=== PATIENT | male | born 1950 | race Caucasian/White ===

== ENCOUNTER 2024-11-30 12:25 | Outpatient (AMB) | payer MEDICARE, OTHER, SELFPAY ==
--- NOTE | 2024-11-30 12:44 | MHC.OFFVIS ---
Vital Signs 11/30/24 12:51 Height 5 ft 6 in Weight 163 lb BMI 26.3 BP 138/84 Blood Pressure Location Rt brachial Position Sitting Intake Visit Reasons: ENP: Drooling Intake Note: Patient presents for drooling Allergies No Known Allergies Allergy (Verified 11/30/24 12:52) Medication List - Last Reconciled 11/30/24 by Anna Loving MD amlodipine 10 mg PO DAILY atorvastatin 80 mg PO DAILY lisinopril 40 mg PO DAILY HPI Comments Details: 74y/oRight handed male comes for evaluation of slowness in movements, temors and excessive drooling. The tremors are mild at rest and are in both hand sL>R. The drooling started 6-9 mths ago and he is embarrased when he has dinners with his family and friends. He has night time drooling and during daytime when he bends down he drools. He does not realize that he is drooling sometimes. No change in swallowing. His speech is softer. He feels he is not as coordinated as before and has difficulty with writing using utensils, dressing. Gait- slower and mild off balance.He has some near falls. he has difficulty turning in bed. He has trouble recalling , word finding difficulties. sleep-he has nocturia, he used to have loud dreams, kicking and screaming during sleep, now better he feels he is more anxious now. He has constipation- he manages with diet. No hallucinations. He also reports right occipital shooting pain - electric shock like sensation -used to be daily now it is less frequent [facility] Medical History (Updated 11/30/24 @ 13:19 by Anna Loving MD) Occipital neuralgia of right side Bradykinesia Drooling Rotator cuff tear Insomnia Anxiety HTN (hypertension) Hyperlipidemia Borderline diabetes NICA (obstructive sleep apnea) Erectile dysfunction Periodic limb movement Orthostatic hypotension SOB (shortness of breath) Dysphagia Electrical shock sensation Surgical History H/O shoulder surgery Family History Mother CAD (coronary artery disease) Acquired cataract Father No problems noted. Social History Alcohol intake: current Patient Tobacco Use Status: Never used Tobacco Physical Exam Vital Signs: Last Vital Signs BP 138/84 11/30/24 12:51 BMI result Body Mass Index 26.3 Const Orientation/consciousness: patient oriented x3 Eyes Pupils: Equal, round and reactive pupils present Neuro Other: Stooped, slow , small steps , mild decreased arm swings ade Decreased blink and facial expression Hypophonia Ade UE cogwheel rigidity Neck- restricted range of portion antecollis General: patient oriented x3 and moves all extremities Cranial nerves: Yes Facial sensation intact/muscles of mastication intact, Yes Equal, round and reactive pupils present, Yes Bilaterally intact EOM present, Yes Nystagmus not present, Yes Normal facial strength present, Yes Midline tongue present and Yes Ability to bilaterally elevate shoulders present Cognition (Neuro): normal cognition Motor exam (neuro): 5/5 motor strength present throughout Deep tendon reflexes (DTR's): Right triceps reflex intensity grade: 2+, Left triceps reflex intensity grade: 2+, Rt Biceps (C5, C6): 2+, Left biceps reflex intensity grade: 2+, Right brachioradialis reflex intensity grade: 2+, Left brachioradialis reflex intensity grade: 2+, Right patellar reflex intensity grade: 2+ and Left patellar reflex intensity grade: 2+ Coordination: [id number] test normal Psych Appearance: grossly normal Mental Status: mental status grossly normal Assessment & Plan Assessment & Plan (1) Drooling: Code(s): K11.7 - Disturbances of salivary secretion Category: Medical (2) Bradykinesia: Comment: with cogwheel rigidity , Kyphosis etc Code(s): R25.8 - Other abnormal involuntary movements Category: Medical (3) Occipital neuralgia of right side: Code(s): M54.81 - Occipital neuralgia Category: Medical Plan He has early signs of Parkinsonism i will evaluate him with MRI brain ( consider MOON scan ) Trial him on carbidopa.levodopa 25/100 1 tab bid PT- for gait training Neck X ray- Myofascial release for neck tightness will consider gabapentin if his occipital neurlagia worsens, Orders: Orders PT Evaluation and Treatment Today G20.C - Parkinsonism, unspecified, M54.2 - Cervicalgia, R25.8 - Other abnormal involuntary movements XR cervical spine 3V Today M54.2 - Cervicalgia MR head/brain wo con Today R25.8 - Other abnormal involuntary movements Medications: New carbidopa-levodopa 25-100 mg (Sinemet) 1 tab PO BID 60 tabs 4RF Coding Level of Care Code New Pt Level 4 (13470) Complex EM visit Add On G2211 Diagnoses Drooling K11.7 Bradykinesia R25.8 Occipital neuralgia of right side M54.81
[2024-11-30 12:51] VITALS: BP 138/84; BMI 26.3
--- OUTSIDE RECORDS SUMMARY | 2024-11-30 14:40 | XMS_ITS | Encounter Summary ---
Author Organization [facility] Address [address] [place] [address] Care Team Providers Care Overlock Hemmer Name Role Phone Monika Hernandez MD Primary Care Prov ider Encounter Details Date Type Department Care Team (Late st Contact Info) Description 11/23/2024 Plan of Care Documentation [facility] Speech Therapy [address] [facility] [address] [place] [address] Social History Tobacco Use Types Packs/Day Years Used Date Smoking Tobacco: Never Smokeless Tobacco: Never Alcohol Use Standard Drinks/Week Comments Yes 66 (1 standard drink = 0.6 oz pu re alcohol) Housing Instability Answer Date Recorde d Are you worried that in the next 2 months you may not have stable housing? No 10/18/2024 Food Access & Nutrition Answer Date Rec orded Do you have access to a vari ety of food including fruits and vegetables? Yes 10/18/2024 Access to Healthcare Answer Date Record ed Within the last 3 months, ho w many times did you visit the emergency department for your medical care? 0 10/18/2024 Health Literacy Answer Date Recorded How often do you need to hav e someone help you when you read instructions, pamphlets, or other written material from your doctor or pharmacy? Never 10/18/2024 Caregiver: How often do you need to have someone help you when you read instructions, pamphlets, or other written material from your doctor or pharmacy? Not on file 10/18/2024 Financial Risk Answer Date Recorded How hard is it for you to pa y for the very basics like food, housing, medical care, and air conditioning / heating? Not very hard 10/18/2024 Transportation Answer Date Recorded Has the lack of transportati on kept you from meetings, work, or from getting things needed for daily living? No Has the lack of transportati on kept you from medical appointments or from getting medications? No 10/18/2024 Social Isolation Answer Date Recorded How often do you feel lonely or isolated from th ose around you? Never 10/18/2024 Food Risk Answer Date Recorded Within the past 12 months we worried whether our food would run out before we got money to buy more. Not on file 10/18/2024 Within the past 12 months th e food we bought just didn't last and we didn't have money to get more. Never true 10/18/2024 Dependent Care Answer Date Recorded Do you need help finding or paying for care for your loved ones. For example, child care aide or elderly care for an older adult? No 10/18/2024 Education Answer Date Recorded Do you think completing more education or training, like finishing a GED, going to college, or learning a trade, would be helpful for you? No 10/18/2024 Employment and Income Answer Date Recor ded During the last four weeks, have you been actively looking for work? No 10/18/2024 Living Situation Answer Date Recorded What is your living situation? 1 12/19/2023 Interpersonal Safety Answer Date Record ed Physical Abuse 10/03/2024 Verbal Abuse 10/03/2024 Sex and Gender Information Value Date Recorded Sex Assigned at Not on file Gender Identity Not on file Sexual Orientation Not on file Job Start Date Occupation Industry Not on file Not on file Not on file documented as of this encounter Plan of Treatment Upcoming Encounters Date Type Department Care Team (Late st Contact Info) Description 01/19/2025 9:30 AM EDT Office Visit Adult Medicine [address] [phone] Monika Hernandez MD [address] [place] [id number] 01/24/2025 8:15 AM EDT Office Visit Orthopedic Surgery [address] [address] Markell Freeman [place] [address] [facility] [address] [place] [address] 04/21/2025 8:30 AM EDT Office Visit Adult Medicine [address] [address] Monika Hernandez MD [address] [place] [id number] documented as of this encounter Visit Diagnoses Not on filedocumented in this encounter Additional Health Concerns Assessment Noted Time PHQ-9 Depression Total Score: 0 10/18/20 24 8:11 AM EST documented as of this encounter Care Teams Overlock Hemmer Relationship Specialty Start Date End Date Monika Hernandez MD [address] [place] [id number] PCP - General Internal Medicine 06/02/22 documented as of this encounter
--- OUTSIDE RECORDS SUMMARY | 2024-11-30 14:40 | XMS_ITS | Clinical Summary ---
Author Organization 175 [facility] Address [address] [place] [address] Phone Care Team Providers Care Assistant Department Manager Name Role Phone Monika Hernandez MD Primary Care Prov ider Allergies Active Allergy Reactions Criticality Noted Date Comments Poison Chandni Extract Itching Medium 11/16/2023 Poison chandni plant Medications Medication Sig Dispensed Refills Start Date End Date Status alfuzosin (UROXATRAL) 10 mg 24 hr tablet 1 TABLET BEFORE BED 03/31/2024 Act akosua ciclopirox (LOPROX) 0.77 % gel Apply topically daily 05/02/2024 Active ciclopirox (LOPROX) 0.77 % cream Apply 1 Applicator topically 2 times daily for 360 days. 05/02/2024 04/27/2025 Active clotrimazole (LOTRIMIN) 1 % cream Apply to skin and toenails daily for 12 weeks 05/02/2024 Active tamsulosin (FLOMAX) 0.4 mg 24 hr capsule Take 1 Capsule by mouth daily. Take 30 mins after same meal every day. 12/22/2023 Active tolnaftate (TINACTIN) 1 % external solution Apply topically to toenails 05/02/2024 Active polyethylene glycol (Golytely) 236-22.74-6.74 -5.86 gram solution Take 4L by mouth once for one dose. May substitue any PEG. Starting at 6PM the night before your procedure drink 1 8oz glasses at your own pace until you complete half of the gallon. Finish 2nd half of the gallon 5 hours before your procedure. 4000 mL 09/19/2024 Active Additional Information Patient not taking.Reported on 10/18/2024 bisacodyL (DULCOLAX) 5 mg EC tablet Take 2 tablets by mouth right before beginning bowel prep. See instructions provided by the office 2 tablet 09/19/2024 Active Additional Information Patient not taking.Reported on 10/18/2024 lisinopril (PRINIVIL,ZESTRIL ) 40 mg tablet TAKE 1 TABLET BY MOUTH EVERY DAY 90 tablet 1 10/07/2024 Active amLODIPine (NORVASC) 10 mg tablet Take 1 tablet (10 mg total) by mouth 1 (one) time each day. 90 each 3 10/18/2024 10/18/2025 Active atorvastatin (LIPITOR) 80 mg tablet Take 1 tablet (80 mg total) by mouth 1 (one) time each day. 90 each 3 10/18/2024 10/18/2025 Active ciclopirox (LOPROX) 0.77 % cream Apply topically 2 (two) times a day. Gently massage into affected areas and surrounding skin 30 g 2 11/24/2024 02/22/2025 Active clotrimazole (LOTRIMIN) 1 % external solution Apply topically 2 (two) times a day. Apply to nails and skin 30 mL 2 09/20/2024 11/15/2024 Active Problems Problem Noted Date Diagnosed Date Anxiety 08/02/2024 Drooling 08/02/2024 Assessment & Plan (10/18/2024 8:40 AM EST): Complaining of persistent drooling for many years, already evaluated by neurology and ENT, no abnormalities were found. Will place a referral for speech and swallow. Orders: Ambulatory referral to Speech Therapy; Future Globus sensation 08/02/2024 Esophagitis 04/22/2024 White matter abnormality on MRI of brain 024 Right bundle branch block 01/29/2023 Dysphagia 01/20/2022 Overview (08/02/2024): Barium swallow 02/03/2022 normal swallowing function. Dedicated speech pathologist report reviewed. Mild oropharyngeal dysphagia. Advised that patient may benefit from GI and/or ENT consult due to reports of intermittent reflux and sensation of throat fullness. GI consult pending. If unremarkable would proceed with ENT eval. EGD with esophagitis. Advised PPI indefinitely. Electrical shock sensation 01/20/2022 Overview (08/02/2024): Neuro work-up pending Orthostatic hypotension 05/02/2021 SOB (shortness of breath) 05/02/2021 Rotator cuff tear, right 08/11/2018 Overview (08/02/2024): Sees Dr. Varela Periodic limb movement sleep disorder 03/16/2018 Erectile dysfunction 02/08/2018 Obstructive sleep apnea 01/14/2018 Overview (08/02/2024): [facility] Home Polysomnogram: Date 01/12/2018; AHI 11, Unclassified apneas 0; Obstructive apneas 9; Central apneas 0; Mixed apneas 0; hypopneas 76; average oxygen saturation 91% (lowest 80% without saturations <88% for 5% or more of study) - Obstructive Sleep Apnea - mild; mostly hypopneas; no sleep related hypoventilation by 2018 home polysomnogram. Borderline diabetes 06/29/2017 Dyslipidemia 09/11/2011 Overview (08/02/2024): IMO update Last Assessment & Plan: Patient's lipid profile is well controlled. Continue statin at current dose. Essential hypertension, benign 11/14/2005 Overview (08/02/2024): Last Assessment & Plan: The patient's blood pressure is well controlled on his current regimen of JOSEPH inhibitor and calcium channel carina. We will continue the same. His mild lower extremity edema is likely a side effect of his amlodipine. His neck discomfort is most likely musculoskeletal in etiology, though he plans to see his PCP next week. He does have tight muscles in his back and his neck. I recommended heating pad and stretching until he gets into see her. As always, we discussed increasing his exercise/focus movement in any way possible. He understands and agrees. I suggested even marching in place while he is watching TV if he does not feel as though he is motivated to get on his treadmill currently. He thinks that he can manage this. Assessment & Plan (10/18/2024 8:40 AM EST): Fairly well controlled 144/72. Compliant with his medications, currently on lisinopril 40, amlodipine 10. There is no chest pain, headaches, dizziness, shortness of breath. Will continue same medication. He is encouraged to follow a low-salt diet and exercise regularly. Orders: Comprehensive metabolic panel; Future Lipid panel with reflex to direct LDL; Future Hyperlipidemia 11/14/2005 Assessment & Plan (10/18/2024 8:30 AM EST): Currently on atorvastatin 80 mg a day. Last LDL was 79. We will continue same medication. Low-fat diet and regular exercise were discussed with the patient. Orders: Comprehensive metabolic panel; Future Lipid panel with reflex to direct LDL; Future Insomnia 11/14/2005 Encounters Date Type Department Care Team Description 11/24/2024 8:15 AM EST Office Visit Orthopedic Surgery [facility] [address] [facility] [address] [place] [phone] Markell Freeman, DPM Dermatophytosis of nail (Primary Dx); Ingrowing nail 11/23/2024 2:15 PM EST Evaluation [facility] Speech Therapy [address] [phone] Merle Sow, SWITCH[employer]ARD WIRE WORKER HELPER Dysphagia, oropharyngeal (Primary Dx); Drooling 11/23/2024 Plan of Care Documentation [facility] Speech Therapy [address] [phone] 10/18/2024 8:00 AM EST Office Visit Adult Medicine [address] [phone] Monika Hernandez MD Encounter for annual general medical examination with abnormal findings in adult (Primary Dx); Essential hypertension, benign; Mixed hyperlipidemia; Drooling; Advance care planning 10/03/2024 3:37 PM EST Anesthesia Event [facility] Endoscopy [address] [place] [phone] Juan Alberto Serrano MD 10/03/2024 2:23 PM EST - 10/03/2024 11:59 PM EST Hospital Encounter [facility] Endoscopy [address] [place] [address] Gwen Barnes MD Piela, Juan Alberto Sanches MD Personal history of colon polyps, unspecified; Esophagitis; Dysphagia Discharge Disposition: Home or Self Care 09/20/2024 8:15 AM EST Office Visit Orthopedic Surgery [facility] [address] [facility] [address] [place] [phone] Markell Freeman, DPM Ingrowing nail (Primary Dx); Dermatophytosis of nail 09/13/2024 Telephone Gastroenterology [facility] 175 [facility] 175 [facility] [address] [place] [address] Romero Lizarraga PA 09/06/2024 2:20 PM EST [facility] 175 [facility] [address] [place] [address] Romero Lizarraga PA Dysphagia, unspecified type (Primary Dx); Globus sensation; Heartburn from Last 3 Months Immunizations Name Administration Dates Next Due Influenza Quadravalent, MDCK , 0.5ml, preservative free (Flucelvax) 6mo and older 08/31/2018 Influenza trivalent, 0.5mL ( Fluzone High-dose) 65yo and older 08/19/2023,08/14/2022,08/15/2021,09/03,09/17/2016,07/26/2013,10/05/2012 ,09/11/2011 Influenza trivalent, with pr eservative (Fluzone; Afluria) 6mo and older 08/17/2019 Influenza, Unspecified 08/14/2022 Pfizer (ages 12 & older) Biv alent, COVID-19 08/18/2022 Pfizer SARS-CoV-2 COVID-19, mRNA, LNP-S, preservative free 08/18/2022,08/23/2021 Pneumococcal conjugate 13 va lent (Prevnar 13, PCV13) 2mo and older 11/15/2015 Pneumococcal polysaccharide 23 valent (Pneumovax 23) 2yo and older 06/21/2019,07/26/2013 Td Tetanus diptheria (Tdvax) 7yo and older 06/21/2019 Tdap Tetanus diptheria acell ular pertussis (Boostrix; Adacel) 7yo and older 02/22/2008 Surgical History Surgery Date Site/Laterality Comments COLONOSCOPY 12/2002 PROCEDURE: ME COLONOSCOPY STOMA DX INCLUDING COLLJ SPEC SPX COLONOSCOPY W/ POLYPECTOMY 01/24/13 PROCEDURE: ME COLSC FLX W/RMVL OF TUMOR POLYP LESION SNARE TQ; COMMENT: tics, hemorrhoids and adenom; repeat in 5 yrs SHOULDER SURGERY 04/2016, 05/12/2016, 05/2018 PROCEDURE: HISTORICAL SHOULDER SURGERY; COMMENT: right arthroscopy Dr. Varela OTHER SURGICAL HISTORY 07/2016 PROCEDURE: HISTORICAL UNSPECIFIED SURGERY; COMMENT: Hema, right hand contracture HAND SURGERY Right PROCEDURE: HISTORICAL HAND SURGERY; COMMENT: TRIGGER FINGER RELEASE CATARACT EXTRACTION Bilateral Medical History Medical History Date Comments Essential hypertension, benign 11/14/2005 D X:Essential hypertension, benign Other and unspecified hyperlipidemia 11/14/2005 DX:Other and unspecified hyperlipidemia Insomnia, unspecified 11/14/2005 DX:Insomni a, unspecified Anxiety DX:Anxiety Dysphagia DX:Dysphagia Globus sensation DX:Globus sensa tion Drooling DX:Drooling Depressive disorder DX:Depressiv e disorder Status post dilation of esop hageal narrowing DX:Status post dilation of e sophageal narrowing Esophagitis DX:Esophagitis Hiatal hernia DX:Hiatal hernia Gastritis DX:Gastritis Esophagitis 04/22/2024 DX:Esophagitis Family History Medical History Relation Name Comments Diabetes Father Cataracts Mother Coronary artery disease Mother Blindness Neg Hx Glaucoma Neg Hx Macular degeneration Neg Hx Strabismus Neg Hx Relation Name Status Comments Father stroke, dm, htn Mother cataract, Social History Tobacco Use Types Packs/Day Years Used Date Smoking Tobacco: Never Smokeless Tobacco: Never Tobacco Cessation:Counseling Given: Not Answered Alcohol Use Standard Drinks/Week Comments Yes 66 [...] for your loved ones. For example, child attendant or elderly care for an older adult? [...] file Not on file Not on file Obstetrics History Last Filed Vital Signs Vital Sign Reading Time Taken Comments Blood Pressure 144/72 10/18/2024 7:53 AM EST Pulse 68 10/18/2024 7:53 AM EST Temperature 36.3 ??C (97.4 ??F) 10/18/2024 7:53 AM ES T Respiratory Rate 16 10/18/2024 7:53 AM EST Oxygen Saturation 96% 10/03/2024 4:30 PM EST Inhaled Oxygen Concentration - - Weight 76.2 kg (168 lb) 11/24/2024 8:03 AM EST Height 167.6 cm (5' 5.98 ) 11/24/2024 8:03 AM ES T Body Mass Index 27.13 11/24/2024 8:03 AM EST Plan of Treatment Upcoming Encounters Date Type Department Care Team (Late st Contact Info) Description 01/19/2025 9:30 AM EDT Office Visit Adult Medicine [address] [phone] Monika Hernandez MD [address] [place] [phone] 01/24/2025 8:15 AM EDT Office Visit Orthopedic Surgery - [place] [address] [place] [address] [phone] Markell Freeman, DPM [address] [place] [address] [phone] 04/21/2025 8:30 AM EDT Office Visit Adult Medicine [address] [phone] Monika Hernandez MD [address] [place] [address] [phone] Health Maintenance Due Date Last Done Comments Zoster Vaccines (1 of 2) 02/16/2000 COVID-19 Vaccine ( season) 2024 09/30/2023, 08/18/2022, 08/18/2022, Additional history exists RSV Immunization Patients 60+ Years Old (1 - 1-dose 75+ series) 2025 Hypertension/CHF/CAD Annual BMP Blood Test 04/21/2025 04/21/2024, 04/21/2024 Falls Risk Assessment 10/03/2025 10/03/2024, 023 Depression Screening 10/18/2025 10/18/2024, 08/19/20 Medicare Annual Wellness Visit 10/18/2025 10/18/2024 Social Influencers of Health Screening 10/18/2025 10/18/2024 Cholesterol Screening (Lipid Panel) 04/21/2029 04/21/2024, 04/21/2024 DTaP,Tdap,and Td Vaccines (3 - Td or Tdap) 06/21/2029 06/21/2019, 02/22/2008 Colorectal Cancer Screening: Colonoscopy 10/03/2029 10/03/2024, 08/30/2019 Hepatitis C Screening Completed 12/19/2002 Pneumococcal Vaccine: 65+ Years Completed 06/21/2019, 11/15/2015, 07/26/2013 Influenza Vaccine Completed 08/08/2024, , 08/14/2022, Additional history exists HIB Vaccines Aged Out No longer eligi ble based on patient's age to complete this topic HPV Vaccines Aged Out No longer eligi ble based on patient's age to complete this topic Hepatitis A Vaccines Aged Out No long er eligible based on patient's age to complete this topic Hepatitis B Vaccines Aged Out No long er eligible based on patient's age to complete this topic IPV Vaccines Aged Out No longer eligi ble based on patient's age to complete this topic MMR Vaccines Aged Out No longer eligi ble based on patient's age to complete this topic Meningococcal ACWY Vaccine Aged Out N o longer eligible based on patient's age to complete this topic RSV Immunization Patients Under 20 months Aged Out No longer eligible based on patient's age to complete this topic Varicella Vaccines Aged Out No longer eligible based on patient's age to complete this topic Procedures Procedure Name Priority Date/Time Associated Diagnosis Comments EGD Routine 10/03/2024 4:09 PM EST Esophagitis Dysphagia COLONOSCOPY Routine 10/03/2024 4:09 PM EST Personal history of colon polyps, unspecified TISSUE EXAM Routine 10/03/2024 3:51 PM EST Personal history of colon polyps, unspecified Esophagitis Dysphagia ANNUAL BMP BLOOD TEST Routine 04/21/2024 LIPID PANEL Routine 04/21/2024 DEPRESSION SCREENING Routine 08/19/2023 FALLS RISK ASSESSMENT Routine 08/19/2023 HEPATITIS C SCREENING Routine 12/19/2002 from Last 3 Months or Most Recently Relevant to Health Maintenance Results * COLONOSCOPY Anesthesia - MAC; [facility] ENDOSCOPY (10/03/2024 4:09 PM EST) Anatomical Region Laterality Modality Endoscopy 10/03/2024 3:40 PM EST Impressions 10/03/2024 4:13 PM EST - Two 2 to 3 mm polyps in the sigmoid colon and in the ? cecum, removed with a cold snare. Resected and ? retrieved. ? - One diminutive polyp in the ascending colon, removed ? with a jumbo cold forceps. Resected and retrieved. ? - Diverticulosis in the sigmoid colon. ? - Internal hemorrhoids. Recommendation: ?- Await pathology results. ? - No repeat colonoscopy due to current age (66 years ? or older). Narrative 10/03/2024 4:13 PM EST [facility] GI Patient Name: Wild Gilbert Procedure Date: 10/03/2024 3:40 PM Date of : 1950 Age: 74 Gender: Male Note Status: Finalized Attending MD: Gwen Barnes MD, Procedure Date No Time: 10/03/2024 Procedure: ? Colonoscopy Indications: ? High risk colon cancer surveillance: Personal history ? of colonic polyps, Last colonoscopy: August 2019 Providers: ? Gwen Barnes MD Referring MD: ?Gwen Barnes MD Medicines: ? Monitored Anesthesia Care Complications: ? No immediate complications. Estimated blood loss: ? Minimal. Estimated Blood Loss: ? Estimated blood loss was minimal. Procedure: ? Pre-Anesthesia Assessment: ? - Prior to the procedure, a History and Physical was ? performed, and patient medications and allergies were ? reviewed. The patient is competent. The risks and ? benefits of the procedure and the sedation options and ? risks were discussed with the patient. All questions ? were answered and informed consent was obtained. ? Patient identification and proposed procedure were ? verified by the physician, the nurse, the universal worker assisted living ? and the marine technician in the pre-procedure area in the ? endoscopy suite. Mental Status Examination: alert and ? oriented. Airway Examination: normal oropharyngeal ? airway and neck mobility. Respiratory Examination: ? clear to auscultation. CV Examination: normal. ? Prophylactic Antibiotics: The patient does not require ? prophylactic antibiotics. Prior Anticoagulants: The ? patient has taken no anticoagulant or antiplatelet ? agents. ASA Grade Assessment: III - A patient with ? severe systemic disease. After reviewing the risks and ? benefits, the patient was deemed in satisfactory ? condition to undergo the procedure. The anesthesia ? plan was to use monitored anesthesia care (MAC). ? Immediately prior to administration of medications, ? the patient was re-assessed for adequacy to receive ? sedatives. The heart rate, respiratory rate, oxygen ? saturations, blood pressure, adequacy of pulmonary ? ventilation, and response to care were monitored ? throughout the procedure. The physical status of the ? patient was re-assessed after the procedure. ? After I obtained informed consent, the scope was ? passed under direct vision. Throughout the procedure, ? the patient's blood pressure, pulse, and oxygen ? saturations were monitored continuously.The Olympus ? Colonoscope was introduced through the anus and ? advanced to the cecum, identified by appendiceal ? orifice and ileocecal valve. The colonoscopy was ? performed without difficulty. The patient tolerated ? the procedure well. The quality of the bowel ? preparation was good. Findings: ?The perianal and digital rectal examinations were ? normal. ? Two sessile polyps were found in the sigmoid colon and ? cecum. The polyps were 2 to 3 mm in size. These polyps ? were removed with a cold snare. Resection and ? retrieval were complete. Estimated blood loss was ? minimal. ? A diminutive polyp was found in the ascending colon. ? The polyp was sessile. The polyp was removed with a ? jumbo cold forceps. Resection and retrieval were ? complete. Estimated blood loss was minimal. ? Multiple small-mouthed diverticula were found in the ? sigmoid colon. ? Internal hemorrhoids were found during retroflexion. ? The hemorrhoids were Grade II (internal hemorrhoids ? that prolapse but reduce spontaneously). Procedure Code(s): ? --- Professional --- ? 23241, Colonoscopy, flexible; with removal of ? tumor(s), polyp(s), or other lesion(s) by snare ? technique ? 51642, 59, Colonoscopy, flexible; with biopsy, single ? or multiple Diagnosis Code(s): ? --- Professional --- ? D12.5, Benign neoplasm of sigmoid colon ? D12.0, Benign neoplasm of cecum ? D12.2, Benign neoplasm of ascending colon CPT copyright 2020 [employer]. All rights reserved. The codes documented in this report are preliminary and upon ampoule filler review may be revised to meet current compliance requirements. Gwen Barnes MD 10/03/2024 4:13:22 PM This report has been signed electronically.Gwen Barnes MD Number of Addenda: 0 Note Initiated On: 10/03/2024 3:40 PM Scope Withdrawal Time: 0 hours 10 minutes 2 seconds Scope In: 3:46:25 PM Scope Out: 4:01:36 PM ? Endoscopy Department at [facility] - [address] [place] [address], ? [place] [address] Procedure Note Gwen Barnes MD - 10/03/2024 [facility] GI Patient Name: Wild Gilbert Procedure Date: 10/03/2024 3:40 PM Date of : 1950 Age: 74 Gender: Male Note Status: Finalized Attending : Gwen Barnes MD, Procedure Date No Time: 10/03/2024 Procedure: Colonoscopy Indications: High risk colon cancer surveillance: Personalhistory of colonic polyps, Last colonoscopy: August 2019 Providers: Gwen Barnes MD Referring MD: Gwen Barnes MD Medicines: Monitored Anesthesia Care Complications: No immediate complications. Estimated blood loss: Minimal. Estimated Blood Loss: Estimated blood loss was minimal. Procedure: Pre-Anesthesia Assessment: - Prior to the procedure, a History and Physicalwas performed, and patient medications and allergieswere reviewed. The patient is competent. The risks and benefits of the procedure and the sedation optionsand risks were discussed with the patient. Allquestions were answered and informed consent was obtained. Patient identification and proposed procedure were verified by the physician, the nurse, theanesthetist and the marine technician in the pre-procedure area in the endoscopy suite. Mental Status Examination: alertand oriented. Airway Examination: normal oropharyngeal airway and neck mobility. Respiratory Examination: clear to auscultation. CV Examination: normal. Prophylactic Antibiotics: The patient does notrequire prophylactic antibiotics. Prior Anticoagulants: The patient has taken no anticoagulant or antiplatelet agents. ASA Grade Assessment: III - A patient with severe systemic disease. After reviewing the risksand benefits, the patient was deemed in satisfactory condition to undergo the procedure. The anesthesia plan was to use monitored anesthesia care (MAC). Immediately prior to administration of medications, the patient was re-assessed for adequacy to receive sedatives. The heart rate, respiratory rate, oxygen saturations, blood pressure, adequacy of pulmonary ventilation, and response to care were monitored throughout the procedure. The physical status ofthe patient was re-assessed after the procedure. After I obtained informed consent, the scope was passed under direct vision. Throughout theprocedure, the patient's blood pressure, pulse, and oxygen saturations were monitored continuously.The Olympus Colonoscope was introduced through the anus and advanced to the cecum, identified by appendiceal orifice and ileocecal valve. The colonoscopy was performed without difficulty. The patient tolerated the procedure well. The quality of the bowel preparation was good. Findings: The perianal and digital rectal examinations were normal. Two sessile polyps were found in the sigmoid colonand cecum. The polyps were 2 to 3 mm in size. Thesepolyps were removed with a cold snare. Resection and retrieval were complete. Estimated blood loss was minimal. A diminutive polyp was found in the ascendingcolon. The polyp was sessile. The polyp was removed with a jumbo cold forceps. Resection and retrieval were complete. Estimated blood loss was minimal. Multiple small-mouthed diverticula were found inthe sigmoid colon. Internal hemorrhoids were found duringretroflexion. The hemorrhoids were Grade II (internal hemorrhoids that prolapse but reduce spontaneously). Procedure Code(s): --- Professional --- 71442, Colonoscopy, flexible; with removal of tumor(s), polyp(s), or other lesion(s) by snare technique 24828, 59, Colonoscopy, flexible; with biopsy,single or multiple Diagnosis Code(s): --- Professional --- D12.5, Benign neoplasm of sigmoid colon D12.0, Benign neoplasm of cecum D12.2, Benign neoplasm of ascending colon CPT copyright 2020 [employer]. All rights reserved. The codes documented in this report are preliminary and upon ampoule filler reviewmay be revised to meet current compliance requirements. Gwen Barnes MD 10/03/2024 4:13:22 PM This report has been signed electronically.Gwen Barnes MD Number of Addenda: 0 Note Initiated On: 10/03/2024 3:40 PM Scope Withdrawal Time: 0 hours 10 minutes 2 seconds Scope In: 3:46:25 PM Scope Out: 4:01:36 PM Endoscopy Department at [address] [phone] IMPRESSION: - Two 2 to 3 mm polyps in the sigmoid colon and in the cecum, removed with a cold snare. Resected and retrieved. - One diminutive polyp in the ascending colon,removed with a jumbo cold forceps. Resected andretrieved. - Diverticulosis in the sigmoid colon. - Internal hemorrhoids. Recommendation: - Await pathology results. - No repeat colonoscopy due to current age (66years or older). Gwen Barnes MD GI~PROCEDURE ORDERA BLES * EGD Anesthesia - MAC; [facility] ENDOSCOPY (10/03/2024 4:09 PM EST) Anatomical Region Laterality Modality Endoscopy 10/03/2024 3:40 PM EST Impressions 10/03/2024 4:10 PM EST - Normal examined duodenum. ? - Small hiatal hernia. ? - Benign-appearing esophageal stenosis. Dilated. ? - No specimens collected. Recommendation: ?- Follow an antireflux regimen. ? - Use a proton pump inhibitor PO daily. Narrative 10/03/2024 4:10 PM EST [facility] GI Patient Name: Wild Gilbert Procedure Date: 10/03/2024 3:40 PM Date of : 1950 Age: 74 Gender: Male Note Status: Finalized Attending MD: Gwen Barnes MD, Procedure Date No Time: 10/03/2024 Procedure: ? Upper GI endoscopy Indications: ? Dysphagia, Suspected stenosis of the esophagus Providers: ? Gwen Barnes MD Referring MD: ?Gwen Barnes MD Medicines: ? Monitored Anesthesia Care Complications: ? No immediate complications. Estimated blood loss: ? Minimal. Estimated Blood Loss: ? Estimated blood loss was minimal. Procedure: ? Pre-Anesthesia Assessment: ? - Prior to the procedure, a History and Physical was ? performed, and patient medications and allergies were ? reviewed. The patient is competent. The risks and ? benefits of the procedure and the sedation options and ? risks were discussed with the patient. All questions ? were answered and informed consent was obtained. ? Patient identification and proposed procedure were ? verified by the physician, the nurse, the universal worker assisted living ? and the marine technician in the pre-procedure area in the ? endoscopy suite. Mental Status Examination: alert and ? oriented. Airway Examination: normal oropharyngeal ? airway and neck mobility. Respiratory Examination: ? clear to auscultation. CV Examination: normal. ? Prophylactic Antibiotics: The patient does not require ? prophylactic antibiotics. Prior Anticoagulants: The ? patient has taken no anticoagulant or antiplatelet ? agents. ASA Grade Assessment: III - A patient with ? severe systemic disease. After reviewing the risks and ? benefits, the patient was deemed in satisfactory ? condition to undergo the procedure. The anesthesia ? plan was to use monitored anesthesia care (MAC). ? Immediately prior to administration of medications, ? the patient was re-assessed for adequacy to receive ? sedatives. The heart rate, respiratory rate, oxygen ? saturations, blood pressure, adequacy of pulmonary ? ventilation, and response to care were monitored ? throughout the procedure. The physical status of the ? patient was re-assessed after the procedure. ? After obtaining informed consent, the endoscope was ? passed under direct vision. Throughout the procedure, ? the patient's blood pressure, pulse, and oxygen ? saturations were monitored continuously.The Endoscope ? was introduced through the mouth, and advanced to the ? second part of duodenum. The upper GI endoscopy was ? accomplished without difficulty. The patient tolerated ? the procedure well. Findings: ?The examined duodenum was normal. ? A small hiatal hernia was present. ? One benign-appearing, intrinsic moderate ? (circumferential scarring or stenosis; an endoscope ? may pass) stenosis was found in the lower third of the ? esophagus. This stenosis measured 1.8 cm (inner ? diameter) x less than one cm (in length). The stenosis ? was traversed. A TTS dilator was passed through the ? scope. Dilation with a 20 mm balloon dilator was ? performed to 20 mm. Estimated blood loss was minimal. ? No other significant abnormalities were identified in ? a careful examination of the esophagus. Procedure Code(s): ? --- Professional --- ? 26369, Esophagogastroduodenoscopy, flexible, ? transoral; with transendoscopic balloon dilation of ? esophagus (less than 30 mm diameter) Diagnosis Code(s): ? --- Professional --- ? K22.2, Esophageal obstruction ? K44.9, Diaphragmatic hernia without obstruction or ? gangrene CPT copyright 2020 [employer]. All rights reserved. The codes documented in this report are preliminary and upon ampoule filler review may be revised to meet current compliance requirements. Gwen Barnes MD 10/03/2024 4:10:51 PM This report has been signed electronically.Gwen Barnes MD Number of Addenda: 0 Note Initiated On: 10/03/2024 3:40 PM Scope In: Scope Out: ? Endoscopy Department at [facility] - [address] [place] [address], ? [place] [address] Procedure Note Gwen Barnes MD - 10/03/2024 [facility] GI Patient Name: Wild Gilbert Procedure Date: 10/03/2024 3:40 PM Date of : 1950 Age: 74 Gender: Male Note Status: Finalized Attending MD: Gwen Barnes MD, Procedure Date No Time: 10/03/2024 Procedure: Upper GI endoscopy Indications: Dysphagia, Suspected stenosis of the esophagus Providers: Gwen Barnes MD Referring MD: Gwen Barnes MD Medicines: Monitored Anesthesia Care Complications: No immediate complications. Estimated blood loss: Minimal. Estimated Blood Loss: Estimated blood loss was minimal. Procedure: Pre-Anesthesia Assessment: - Prior to the procedure, a History and Physicalwas performed, and patient medications and allergieswere reviewed. The patient is competent. The risks and benefits of the procedure and the sedation optionsand risks were discussed with the patient. Allquestions were answered and informed consent was obtained. Patient identification and proposed procedure were verified by the physician, the nurse, theanesthetist and the marine technician in the pre-procedure area in the endoscopy suite. Mental Status Examination: alertand oriented. Airway Examination: normal oropharyngeal airway and neck mobility. Respiratory Examination: clear to auscultation. CV Examination: normal. Prophylactic Antibiotics: The patient does notrequire prophylactic antibiotics. Prior Anticoagulants: The patient has taken no anticoagulant or antiplatelet agents. ASA Grade Assessment: III - A patient with severe systemic disease. After reviewing the risksand benefits, the patient was deemed in satisfactory condition to undergo the procedure. The anesthesia plan was to use monitored anesthesia care (MAC). Immediately prior to administration of medications, the patient was re-assessed for adequacy to receive sedatives. The heart rate, respiratory rate, oxygen saturations, blood pressure, adequacy of pulmonary ventilation, and response to care were monitored throughout the procedure. The physical status ofthe patient was re-assessed after the procedure. After obtaining informed consent, the endoscope was passed under direct vision. Throughout theprocedure, the patient's blood pressure, pulse, and oxygen saturations were monitored continuously.TheEndoscope was introduced through the mouth, and advanced tothe second part of duodenum. The upper GI endoscopy was accomplished without difficulty. The patienttolerated the procedure well. Findings: The examined duodenum was normal. A small hiatal hernia was present. One benign-appearing, intrinsic moderate (circumferential scarring or stenosis; an endoscope may pass) stenosis was found in the lower third ofthe esophagus. This stenosis measured 1.8 cm (inner diameter) x less than one cm (in length). Thestenosis was traversed. A TTS dilator was passed through the scope. Dilation with a 20 mm balloon dilator was performed to 20 mm. Estimated blood loss wasminimal. No other significant abnormalities were identifiedin a careful examination of the esophagus. Procedure Code(s): --- Professional --- 58809, Esophagogastroduodenoscopy, flexible, transoral; with transendoscopic balloon dilation of esophagus (less than 30 mm diameter) Diagnosis Code(s): --- Professional --- K22.2, Esophageal obstruction K44.9, Diaphragmatic hernia without obstruction or gangrene CPT copyright 2020 [employer]. All rights reserved. The codes documented in this report are preliminary and upon ampoule filler reviewmay be revised to meet current compliance requirements. Gwen Barnes MD 10/03/2024 4:10:51 PM This report has been signed electronically.Gwen Barnes MD Number of Addenda: 0 Note Initiated On: 10/03/2024 3:40 PM Scope In: Scope Out: Endoscopy Department at [facility] - [address] [place] [id number] IMPRESSION: - Normal examined duodenum. - Small hiatal hernia. - Benign-appearing esophageal stenosis. Dilated. - No specimens collected. Recommendation: - Follow an antireflux regimen. - Use a proton pump inhibitor PO daily. Gwen Barnes MD GI~PROCEDURE ORDERA BLES * Tissue exam (10/03/2024 3:51 PM EST) Final Diagnosis A. Large Intestine, Cecum, colon polyp x1: -BENIGN COLONIC MUCOSA WITH NO SPECIFIC PATHOLOGIC CHANGE B. Large Intestine, Right/Ascending Colon, colon polyp x1: -HYPERPLASTIC POLYP C. Large Intestine, Sigmoid Colon, colon polyp x1: -TUBULAR ADENOMA 10/06/2024 12:17 PM EST [facility] Gross Description A. Large Intestine, Cecum, colon polyp x1: Labeled colon, cecum edvin . Received in formalin, is an approximately 0.2 cm, in greatest diameters, rubbery, castillo-pink, polypoid tissue, which is inked black at the base, wrapped in paper and submitted in toto in one cassette, one piece, multiple levels. B. Large Intestine, Right/Ascending Colon, colon polyp x1: Labeled ascend, colon edvin . Received in formalin, are five irregular soft, castillo-brown tissue fragments, approximately ranging from 0.2 cm to 0.5 cm in greatest diameters, which are wrapped in paper and submitted in toto in one cassette, five pieces, multiple levels. C. Large Intestine, Sigmoid Colon, colon polyp x1: Labeled sig colon edvin . Received in formalin, are three irregular soft to rubbery, castillo-pink tissue fragments, approximately ranging from 0.1 cm to 0.4 cm in greatest diameters, which are wrapped in paper and submitted in toto in one cassette, three pieces, multiple levels. dvb/SL 10/06/2024 12:17 PM EST [facility] Disclaimer Unless otherwise specified, all tissue is 10% NB formalin fixed and paraffin embedded. 10/06/2024 12:17 PM EST [facility] Tissue Cecum structure / Unknown 10/03/2024 3:51 PM EST 10/03/2024 4:51 PM EST Tissue specimen (specimen) Ascending colon structure / Unknown 10/03/2024 3:56 PM EST 10/03/2024 4:51 PM EST Tissue specimen (specimen) Sigmoid colon structure / Unknown 10/03/2024 3:59 PM EST 10/03/2024 4:51 PM EST Gwen Barnes MD LAB PATHOLOGY ORDER [facility] [address] [place] [address], * Annual BMP Blood Test (04/21/2024) [facility] Annual BMP Blood Test abstracted Historical Provider [facility] Lipid panel (04/21/2024) [facility] LDL/HDL Ratio 3 0 - 4 Triglycerides 86 0 - 150 mg/dL Cholesterol 143 0 - 200 mg/dL HDL 49 40 mg/dL LDL Cholesterol 77 0 - 100 mg/dL Blood Venous blood specimen / Unknown Historical Provider LAB BLOOD ORDERAB LES * Falls Risk Assessment (08/19/2023) [facility] Falls Risk Assessment abstracted Historical Provider [facility] Depression Screening (08/19/2023) [facility] Depression Screening abstracted Historical Provider [facility] Hepatitis C Screening (12/19/2002) [facility] Hepatitis C Screening abstracted [facility] Provider MD WILL Dailey from Last 3 Months or Most Recently Relevant to Health Maintenance Care Teams Assistant Department Manager Relationship Specialty Start Date End Date Monika Hernandez MD [address] [place] [id number] PCP - General Internal Medicine 06/02/22
--- OUTSIDE RECORDS SUMMARY | 2024-11-30 14:40 | XMS_ITS | Encounter Summary ---
Author Organization [facility] Address [address] [place] [address] Care Team Providers Care Lottery Office Manager Name Role Phone Monika Hernandez MD Primary Care Prov ider Reason for Visit * Reason Comments Follow-up Ingrown toenail Encounter Details Date Type Department Care Team ([facility] st Contact Info) Description 11/24/2024 8:15 AM EST Office Visit Orthopedic Surgery - [place] [address] [phone] Markell Freeman, DPM [address] [address] Dermatophytosis of nail (Primary Dx); Ingrowing nail Social History Tobacco Use Types Packs/Day Years [...] care for your loved ones. For example, director maternal child or elderly care for an older adult? [...] on file documented as of this encounter Last Filed Vital Signs Vital Sign Reading Time Taken Comments Blood Pressure - - Pulse - - Temperature - - Respiratory Rate - - Oxygen Saturation - - Inhaled Oxygen Concentration - - Weight 76.2 kg (168 lb) 11/24/2024 8:03 AM EST Height 167.6 cm (5' 5.98 ) 11/24/2024 8:03 AM ES T Body Mass Index 27.13 11/24/2024 8:03 AM EST documented in this encounter Ordered Prescriptions Prescription Sig Dispensed Refills Start Date End Da te ciclopirox (LOPROX) 0.77 % cream Apply topically 2 (two) times a day. Gently massage into affected areas and surrounding skin 30 g 2 11/24/2024 02/22/2025 documented in this encounter Progress Notes * Markell Freeman DPM - 11/24/2024 8:15 AM EST S Location Right great toe pain ingrowing nail chronic ingrowing painful nail notes that has been bothering for a long period time I skin bothersome he would like to know if it can be in portions removed he states that he did use to do it himself but is difficult anyone touching his pain discomfort a4-10 on a visual analog scale patient does note that he has been doing somewhat better with the soaking as well as softening of his nails states top medication some improvement when if he can try something different such as a gel or lacquer ROS: GENERAL: Pt denies nausea, fever, vomiting, chills, or shortness of breath. Pt in NAD. CARDIOLOGY: pt denies chest pain, palpitations LUNGS: pt denies shortness of breath MUSCULOSKELETAL: See HPI, otherwise no joint pain or swelling, back pain, or muscle pain. SKIN: see HPI, otherwise no lesions, rash or itching NEURO: No persistent headache, weakness or numbness The remainder of the review of systems is noncontributory PAST MEDICAL HISTORY: Patient Active Problem List Diagnosis Code Essential hypertension, benign I10 HYPERLIPIDEMIA E78.5 INSOMNIA G47.00 Anxiety F41.9 Personal history of kidney stones Z87.442 Dyslipidemia E78.5 Borderline diabetes R73.03 Obstructive sleep apnea mild AHI 11 G47.33 Erectile dysfunction N52.9 Periodic limb movement sleep disorder G47.61 Rotator cuff tear, right M75.101 SOB (shortness of breath) R06.02 Orthostatic hypotension I95.1 Electrical shock sensation R20.8 Dysphagia R13.10 Globus sensation R09.A2 Drooling K11.7 Right bundle branch block I45.10 Esophagitis K20.90 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 on 05/23/2024 at 8:24 AM Sections Reviewed Tobacco ACTIVE MEDICATIONS: Current Outpatient Medications Medication Sig Dispense Refill atorvastatin (LIPITOR) 80 MG tablet TAKE 1 TABLET BY MOUTH EVERY DAY 90 Tablet 1 amlodipine (NORVASC) 10 MG tablet Take 0.5 Tablets by mouth daily. 45 Tablet 1 lisinopril (PRINIVIL,ZESTRIL) 40 MG tablet Take 0.5 Tablets by mouth daily. 45 Tablet 1 ciclopirox (LOPROX) 0.77 % cream Apply 1 Applicator topically 2 times daily for 360 days. 15 g 3 Ciclopirox 0.77 % Gel Apply topically daily 10 g 2 clotrimazole (LOTRIMIN) 1 % cream Apply to skin and toenails daily for 12 weeks 45 g 3 tolnaftate (TINACTIN) 1 % external solution Apply topically to toenails 10 mL 3 omeprazole (PRILOSEC) 20 MG capsule Take 1 Capsule by mouth daily. 30 minutes prior to meal. 90 Capsule 1 alfuzosin (UROXATRAL) 10 MG 24 hr tablet 1 TABLET BEFORE BED tamsulosin (FLOMAX) 0.4 MG 24 hr capsule Take 1 Capsule by mouth daily. Take 30 mins after same meal every day. 90 Capsule 1 No current facility-administered medications for this visit. ALLERGIES: Extract of poison chnadni PHYSICAL EXAM: Height 5' 6 (1.676 m), weight 165 lb (74.8 kg). Estimated body mass index is 26.63 kg/m?? as calculated from the following: Height as of this encounter: 5' 6 (1.676 m). Weight as of this encounter: 165 lb (74.8 kg). PODIATRIC EXAMINATION: GENERAL: Patient appears well nourished, with NAD. VASCULAR: Dorsalis pedis pulses are 2/4 bilaterally and Posterior tibial pulses are 2/4 bilaterally. Capillary filling time within normal limits the digits. No pallor on elevation or rubor on dependency. Positive hair growth. No varicosities. Denies rest pain or claudication pain. NEUROLOGICAL: Sharp/dull sensation intact, protective sensation intact 10/10 with 5.07 semmes sheree bilaterally, vibratory sensation with tuning fork intact to the tibial tuberosity. ORTHOPEDIC: Good muscle strength 5/5 of all flexors and extensors. Dorsi flexion of ankle ,10 degrees, plantar flexion WNL. No muscle atrophy. DERMATOLOGICAL:. Abnormal curvature of the right great toe with ingrowth lateral nail fold localized irritation thickness of nail Onycholysis left great toenail some annular scaling both feet BIOMECHANICS: STJ ROM wnl, MTJ ROM wnl, 1st MPJ ROM wnl. IMAGING: IMPRESSION: 1. Dermatophytosis of nail 2. Ingrowing nail PLAN: Pt was seen and examined, history reviewed. Discussed surgical procedures would recommend permanent nail matrixectomy removal ingrown portions patient states he like to think about it but does not feel comfortable doing it at this time ingrownportions removed with ethyl chloride spray Recommend warm water soaks daily antibiotic ointment daily discussed with patient alternative treatment options including warm water soaks Encourage patient educated Cut nail straight across along to grow straight out would recommend thatif he has significant issue prior to next appointment call otherwise I would continue with soaking and softening Ciclopirox prescribed Follow-up in 1 to 3 months Markell Freeman DPM documented in this encounter Plan of Treatment Upcoming Encounters Date Type Department Care Team (Late st Contact Info) Description 01/19/2025 9:30 AM EDT Office Visit Adult Medicine [address] [phone] Monika Hernandez MD [address] [place] [phone] 01/24/2025 8:15 AM EDT Office Visit Orthopedic Surgery - [place] [address] [phone] Markell Freeman DPM [address] [address] 04/21/2025 8:30 AM EDT Office Visit Adult Medicine [address] [phone] Monika Hernandez MD [address] [place] [phone] documented as of this encounter Visit Diagnoses Diagnosis Dermatophytosis of nail- Primary Ingrowing nail documented in this encounter Additional Health Concerns Assessment Noted Time PHQ-9 Depression Total Score: 0 10/18/20 24 8:11 AM EST documented as of this encounter Care Teams Lottery Office Manager Relationship Specialty Start Date End Date Monika Hernandez MD [address] [place] [id number] PCP - General Internal Medicine 06/02/22 documented as of this encounter
--- OUTSIDE RECORDS SUMMARY | 2024-11-30 14:40 | XMS_ITS | Encounter Summary ---
Author Organization [facility] Address [address] [place] [address] Care Team Providers Care Pediatric Immunologist Name Role Phone Monika Hernandez MD Primary Care Prov ider Reason for Visit * Consultation (Routine) - Closed Specialty Diagnoses / Procedures Referred By Contac t Referred To Contact Speech Pathology / Speech Therapy Diagnoses Drooling Monika Hernandez MD [address] [place] [phone] Referral ID Status Reason Start Date Expiration Date V isits Requested Visits Authorized [id number] Closed Specialty Services Required 10/18/2024 10/18/2025 1 1 Encounter Details Date Type Department Care Team (Late st Contact Info) Description 11/23/2024 2:15 PM EST Evaluation [facility] Speech Therapy [address] [place] [phone] Merle Sow, OPTHALMIC TECH Dysphagia, oropharyngeal (Primary Dx); Drooling Social History Tobacco Use Types Packs/Day Years [...] for your loved ones. For example, child psychometrist or elderly care for an older adult? [...] on file documented as of this encounter Progress Notes * ANIA Stark - 11/23/2024 2:15 PM EST Images from the original note were not included. [facility] SPEECH THERAPY [address] [place] [address] Dept: [phone] Dept SPEECH THERAPY CLINICAL SWALLOWING EVALUATION Date: 11/23/2024 Visit Number: 1 Patient Name: Wild Gilbert : 1950 Age: 74 y.o. Gender: male Diagnosis: ICD-10-CM ICD-9-CM 1. Dysphagia, oropharyngeal R13.12 787.22 2. Drooling K11.7 527.7 Ambulatory referral to Speech Therapy Date of Onset: 10/18/2024 Referring Provider: Monika Hernandez Pt ID by: Self, Full Name and Language: Speaks and understands Italian as preferred language with no offset proof press operator required Change in status: no; Chart Reviewed: Yes Medications: Discussed current medications that may impact therapy. Medication list obtained and reviewed. Refer to document in medical record. Advised Patient to contact MD with any questions regarding medications and importance of managing medication information. has a past medical history of Anxiety, Depressive disorder, Drooling, Dysphagia, Esophagitis, Esophagitis (04/22/2024), Essential hypertension, benign (11/14/2005), Gastritis, Globus sensation, Hiatalhernia, Insomnia, unspecified (11/14/2005), Other and unspecified hyperlipidemia (11/14/2005), and Status post dilation of esophageal narrowing. has a past surgical history that includes Colonoscopy (12/2002); Colonoscopy w/ polypectomy (01/24/13); Shoulder surgery (04/2016, 05/12/2016, 05/2018); Other surgical history (07/2016); Hand surgery (Right); and Cataract extraction (Bilateral). is allergic to poison chandni extract. Precautions: N/a Previous Medical Care/Therapy: Pt had barium swallow 1 yr ago and it was WFL. Recent EGD with dilation was successful. History of Present Illness: Pt referred by PCP for swallow eval. Pt reports hx of drooling for at least 8-12 months. Anterior leakage is bilateral lips. Occassional coughing with saliva. No recent PNAs or weight loss. No neuro changes per pt. SUBJECTIVE Subjective Report: I eat good Quality of Life: excellent Current Functional Limitations: Reported by Patient drooling Is the patient at Risk for Falls: No Prior Level of Function: Independent in all areas Home Environment: Pt lives with his . Pt likes to travel, garden, spend time with 8 grandchildren. OBJECTIVE Baseline Assessment Behavior/Cognition: Alert, Cooperative, Pleasant mood Dentition: Adequate Baseline Vocal Quality: Within Functional Limits Consistencies Assessed Consistencies Assessed: Yes Consistencies Assessed Consistencies Assessed: Yes Oral/Motor/Speech Labial ROM: Within Functional Limits Labial Symmetry: (slight droop L upper at rest but no deficits with movement) Labial Strength: Within Functional Limits Labial Sensation: Within Functional Limits Lingual Appearance: [place], Moist Lingual ROM: Within Functional Limits Lingual Symmetry: Within Functional Limits Lingual Strength: Within Functional Limits Velum: Within Functional Limits Mandible: Within Functional Limits Facial ROM: Within Functional Limits Facial Symmetry: Within Functional Limits Facial Sensation: Within Functional Limits Vocal Quality: Within Functional Limits Gag: Within Functional Limits Intelligibility: Intelligible 100% Thin Presentation: Cup; Straw; Self Fed Oral: WFL Pharyngeal: WFL Amount: 5oz Comments: consistent labial seal with all presentations. No cough or vocal quality changes. Puree Presentation: Self Fed; Spoon Oral: WFL Pharyngeal: WFL Amount: 3 boluses Comments: again consistent labial seal with all presentations. Solid/Regular Presentation: Bite; Self Fed Oral: WFL Pharyngeal: WFL Amount: 2 boluses Comments: again consistent labial seal with all boluses ASSESSMENT Wild Gilbert is a 74 y.o. male presenting for outpatient speech and language therapy evaluation with complaints of drooling. Significant clinical findings include: oral motor movements and sensationWFL. No s/sy oral pharyngeal dysphagia or audible aspiration. Pt noted with drooling x 1 with head in flexion position. No episodes when sitting upright in head in midline position and cues to swallow more frequently. Pt will f/u with MD if position changes do not decrease drooling. . Rehabilitation Potential: Rehab Potential: Other: n/a Motivation for Rehab: n/a Support Structure: Good Learning Needs: Were Patient Learning needs assessed Yes Learning Preferences: Explanation and Demonstration Barriers to Learning: No Barriers to Learning Patient Education: Applied Knowledge, Verbal Understanding, and Demonstrated Skills Goals Addressed None PLAN POC Development/Review: Initial Evaluation Participants: Patient} Skilled Therapy Plan Required: NO- Reasons Why Continued Therapy Is Not Recommended: No Skilled Therapy Required Plan No Skilled OPTHALMIC TECH: Independent with swallowing OPTHALMIC TECH - Evaluation Status: Complete Planned Therapy Interventions: {INTERVENTIONS: Evaluation of Oral and Pharyngeal Swallowing Function (38774) Recommended Consults: none BILLING (This Date of Service 11/23/2024) Timed Services: Untimed Services: Swallowing Function Time Entry Clinical Swallow Eval Time Entry: 45 TOTAL TREATMENT TIME: 45 Minutes Documentation completed by ANIA Stark [facility] SPEECH THERAPY [address] [address] Dept: [phone] Dept PATIENT NAME: Wild Gilbert : 1950 documented in this encounter Plan of Treatment Upcoming Encounters Date Type Department Care Team (Late st Contact Info) Description 01/19/2025 9:30 AM EDT Office Visit Adult Medicine [address] [phone] Monika Hernandez MD [address] [place] [address] 01/24/2025 8:15 AM EDT Office Visit Orthopedic Surgery [place] [address] [phone] Markell Freeman DPM [address] [address] 04/21/2025 8:30 AM EDT Office Visit Adult Medicine [address] [phone] Monika Hernandez MD [address] [place] [address] documented as of this encounter Visit Diagnoses Diagnosis Dysphagia, oropharyngeal- Primary Dysphagia, oropharyngeal phase Drooling Other facial nerve disorders documented in this encounter Orders Outpatient Referral Count Last Ordered Date Fir st Ordered Date AMB REFERRAL TO SPEECH THERAPY 1 11/23/2024 documented in this encounter Additional Health Concerns Assessment Noted Time PHQ-9 Depression Total Score: 0 10/18/20 24 8:11 AM EST documented as of this encounter Care Teams Pediatric Immunologist Relationship Specialty Start Date End Date Monika Hernandez MD [address] [place] [address] PCP - General Internal Medicine 06/02/22 documented as of this encounter
== END 2024-11-30 13:35 | disposition home or self-care (01) ==
PROVIDERS: PCP Internal Medicine; Visit Provider Psychiatry & Neurology Neurology
DX: K11.7 Disturbances of salivary secretion (principal); R25.8 Other abnormal involuntary movements; M54.81 Occipital neuralgia
CPT/HCPCS: 99204; G2211

== ENCOUNTER → 2024-11-30 12:25 | Outpatient (BNVA) | payer MEDICARE, OTHER, SELFPAY | PROVIDERS: PCP Internal Medicine; Visit Provider Psychiatry & Neurology Neurology | DX: K11.7 Disturbances of salivary secretion (principal); R25.8 Other abnormal involuntary movements; M54.81 Occipital neuralgia | CPT/HCPCS: 99202 ==

== ENCOUNTER 2024-12-07 14:28 | Outpatient (REF) | payer MEDICARE, OTHER, SELFPAY ==
--- NOTE | ~2024-12-07 | XR_ITS ---
CLINICAL HISTORY: M54.2 - Cervicalgia 6 views cervical spine Comparison: None Findings: Straightened cervical lordosis. Normal frontal alignment. Mild offset at the lateral C1-2 interval although no asymmetry between the lateral masses of C1 and C2. Significance uncertain and a component may be projectional. Normal vertebral body height and precervical soft tissue thickness. Large solid anterior bridging osteophyte complex C3 through C5. Smaller solid anterior osteophytic bridging at C2-3 and partial bridging osteophytes at C5-6 and C6-7. Appearance suggest diffuse idiopathic skeletal hyperostosis. Ankylosis with essentially obliteration of the disc space at C3-4 and C4-5. Severe disc space narrowing at C5-6 and C6-7. Limited visualization C7-T1. Impression: Technically difficult exam. Extensive diffuse idiopathic skeletal hyperostosis changes throughout. Solid ankylosis C2 through C5 and severe degenerative disc changes C5-6 and C6-7. Mild lateral asymmetry at C1-2 of questionable etiology and significance. If recent trauma, follow-up for ligamentous injury with MRI suggested. This document has been electronically signed by: Wyatt Ortiz MD on 12/09/2024 08:45:51
--- OUTSIDE RECORDS SUMMARY | 2024-12-07 15:44 | XMS_ITS | Clinical Summary ---
Author Organization [address] [facility] Address [address] [place] [address] Phone Care Team Providers Care Wire Rope Fabrication Supervisor Name Role Phone Monika Hernandez MD Primary [...] 02/08/2018 Obstructive sleep apnea 01/14/2018 Overview (08/02/2024): [facility] Home Polysomnogram: Date 01/12/2018; AHI 11, Unclassified [...] 8:15 AM EST Office Visit Orthopedic Surgery [facility] 250 175 [facility] 250 [place] [phone] Markell Freeman, DPM Dermatophytosis of nail (Primary Dx); Ingrowing nail 11/23/2024 2:15 PM EST Evaluation [facility] Speech Therapy [address] [phone] Merle Sow, CERTIFIED SUBSTANCE ABUSE COUNSELOR Dysphagia, oropharyngeal (Primary Dx); Drooling 11/23/2024 Plan of Care Documentation [facility] Speech Therapy [address] [phone] 10/18/2024 8:00 AM EST Office Visit Adult Medicine [address] [phone] Monika Hernandez MD Encounter for annual general medical examination with abnormal findings in adult (Primary Dx); Essential hypertension, benign; Mixed hyperlipidemia; Drooling; Advance care planning 10/03/2024 3:37 PM EST Anesthesia Event [facility] Endoscopy [address] [place] [phone] Juan Alberto Serrano MD 10/03/2024 2:23 PM EST - 10/03/2024 11:59 PM EST Hospital Encounter [facility] Endoscopy [address] [place] [address] Gwen Barnes MD Piela, Juan Alberto Sanches MD Personal history of colon polyps, unspecified; Esophagitis; Dysphagia Discharge Disposition: Home or Self Care 09/20/2024 8:15 AM EST Office Visit Orthopedic Surgery [facility] 250 175 [facility] 250 [place] [phone] Markell Freeman, DPM Ingrowing nail (Primary Dx); Dermatophytosis of nail 09/13/2024 Telephone Gastroenterology [facility] 175 [facility] 175 [facility] [address] [place] [address] Romero Lizarraga PA 09/06/2024 2:20 PM EST [facility] 175 [facility] 175 [facility] [address] [place] [address] Romero Lizarraga PA Dysphagia, unspecified [...] Surgery Date Site/Laterality Comments COLONOSCOPY 12/2002 PROCEDURE: CO COLONOSCOPY STOMA DX INCLUDING COLLJ SPEC SPX COLONOSCOPY W/ POLYPECTOMY 01/24/13 PROCEDURE: CO COLSC FLX W/RMVL OF TUMOR POLYP LESION [...] care for your loved ones. For example, childcare provider or elderly care for an older adult? [...] 9:30 AM EDT Office Visit Adult Medicine [address] [phone] Monika Hernandez MD [address] [place] [phone] 01/24/2025 8:15 AM EDT Office Visit Orthopedic Surgery - [place] [address] [phone] Markell Freeman, DPM [address] [address] 04/21/2025 8:30 AM EDT Office Visit Adult Medicine [address] [phone] Monika Hernandez MD [address] [place] [phone] Health Maintenance Due Date Last Done Comments [...] Maintenance Results * COLONOSCOPY Anesthesia - MAC; [facility] ENDOSCOPY (10/03/2024 4:09 PM EST) Anatomical Region [...] or older). Narrative 10/03/2024 4:13 PM EST [facility] GI Patient Name: Wild Gilbert [...] verified by the physician, the nurse, the adhesive sprayer ? and the photo equipment technician in the pre-procedure area in the [...] Procedure Code(s): ? --- Professional --- ? 65285, Colonoscopy, flexible; with removal of ? tumor(s), polyp(s), or other lesion(s) by snare ? technique ? 51386, 59, Colonoscopy, flexible; with biopsy, single ? or multiple Diagnosis Code(s): ? --- Professional --- ? D12.5, Benign neoplasm of sigmoid colon ? D12.0, Benign neoplasm of cecum ? D12.2, Benign neoplasm of ascending colon CPT copyright 2020 [employer]. All rights reserved. The codes documented in this report are preliminary and upon outpatient coder review may be revised to meet current compliance requirements. Gwen Barnes MD 10/03/2024 4:13:22 PM This report has been signed electronically.Gwen Barnes MD Number of Addenda: 0 Note Initiated On: 10/03/2024 3:40 PM Scope Withdrawal Time: 0 hours 10 minutes 2 seconds Scope In: 3:46:25 PM Scope Out: 4:01:36 PM ? Endoscopy Department at [facility] - [address] [place] [address], ? [place] [address] Procedure Note Gwen Barnes MD - 10/03/2024 [facility] GI Patient Name: Wild Gilbert [...] the physician, the nurse, theanesthetist and the photo equipment technician in the pre-procedure area in the [...] reduce spontaneously). Procedure Code(s): --- Professional --- 11114, Colonoscopy, flexible; with removal of tumor(s), polyp(s), or other lesion(s) by snare technique 46513, 59, Colonoscopy, flexible; with biopsy,single or multiple Diagnosis Code(s): --- Professional --- D12.5, Benign neoplasm of sigmoid colon D12.0, Benign neoplasm of cecum D12.2, Benign neoplasm of ascending colon CPT copyright 2020 [employer]. All rights reserved. The codes documented in this report are preliminary and upon outpatient coder reviewmay be revised to meet current compliance requirements. Gwen Barnes MD 10/03/2024 4:13:22 PM This report has been signed electronically.Gwen Barnes MD Number of Addenda: 0 Note Initiated On: 10/03/2024 3:40 PM Scope Withdrawal Time: 0 hours 10 minutes 2 seconds Scope In: 3:46:25 PM Scope Out: 4:01:36 PM Endoscopy Department at [address] [phone] IMPRESSION: - Two 2 to 3 mm [...] ORDERA BLES * EGD Anesthesia - MAC; [facility] ENDOSCOPY (10/03/2024 4:09 PM EST) Anatomical Region Laterality Modality Endoscopy 10/03/2024 3:40 PM EST Impressions 10/03/2024 4:10 PM EST - Normal examined duodenum. ? - Small hiatal hernia. ? - Benign-appearing esophageal stenosis. Dilated. ? - No specimens collected. Recommendation: ?- Follow an antireflux regimen. ? - Use a proton pump inhibitor PO daily. Narrative 10/03/2024 4:10 PM EST [facility] GI Patient Name: Wild Gilbert [...] verified by the physician, the nurse, the adhesive sprayer ? and the photo equipment technician in the pre-procedure area in the [...] Procedure Code(s): ? --- Professional --- ? 40587, Esophagogastroduodenoscopy, flexible, ? transoral; with transendoscopic balloon dilation of ? esophagus (less than 30 mm diameter) Diagnosis Code(s): ? --- Professional --- ? K22.2, Esophageal obstruction ? K44.9, Diaphragmatic hernia without obstruction or ? gangrene CPT copyright 2020 [employer]. All rights reserved. The codes documented in this report are preliminary and upon outpatient coder review may be revised to meet current compliance requirements. Gwen Barnes MD 10/03/2024 4:10:51 PM This report has been signed electronically.Gwen Barnes MD Number of Addenda: 0 Note Initiated On: 10/03/2024 3:40 PM Scope In: Scope Out: ? Endoscopy Department at [facility] - [address] [place] [address], ? [place] [address] Procedure Note Gwen Barnes MD - 10/03/2024 [facility] GI Patient Name: Wild Gilbert [...] the physician, the nurse, theanesthetist and the photo equipment technician in the pre-procedure area in the [...] the esophagus. Procedure Code(s): --- Professional --- 62867, Esophagogastroduodenoscopy, flexible, transoral; with transendoscopic balloon dilation of esophagus (less than 30 mm diameter) Diagnosis Code(s): --- Professional --- K22.2, Esophageal obstruction K44.9, Diaphragmatic hernia without obstruction or gangrene CPT copyright 2020 [employer]. All rights reserved. The codes documented in this report are preliminary and upon outpatient coder reviewmay be revised to meet current compliance requirements. Gwen Barnes MD 10/03/2024 4:10:51 PM This report has been signed electronically.Gwen Barnes MD Number of Addenda: 0 Note Initiated On: 10/03/2024 3:40 PM Scope In: Scope Out: Endoscopy Department at [facility] - [address] [place] [phone] IMPRESSION: - Normal examined duodenum. - Small [...] x1: -TUBULAR ADENOMA 10/06/2024 12:17 PM EST [facility] ([facility]) [facility] Gross Description A. Large Intestine, [...] multiple levels. dvb/SL 10/06/2024 12:17 PM EST [facility] Disclaimer Unless otherwise specified, all tissue is 10% NB formalin fixed and paraffin embedded. 10/06/2024 12:17 PM EST [facility] Tissue Cecum structure / Unknown 10/03/2024 3:51 PM EST 10/03/2024 4:51 PM EST Tissue specimen (specimen) Ascending colon structure / Unknown 10/03/2024 3:56 PM EST 10/03/2024 4:51 PM EST Tissue specimen (specimen) Sigmoid colon structure / Unknown 10/03/2024 3:59 PM EST 10/03/2024 4:51 PM EST Gwen Barnes MD LAB PATHOLOGY ORDER KATIE [facility] [address] [place] [address], * Annual BMP Blood Test (04/21/2024) [facility] Annual BMP Blood Test abstracted Historical Provider [facility] Lipid panel (04/21/2024) [facility] LDL/HDL Ratio 3 0 - 4 Triglycerides 86 0 - 150 mg/dL Cholesterol 143 0 - 200 mg/dL HDL 49 40 mg/dL LDL Cholesterol 77 0 - 100 mg/dL Blood Venous blood specimen / Unknown Historical Provider LAB BLOOD ORDERAB LES * Falls Risk Assessment (08/19/2023) [facility] Falls Risk Assessment abstracted Historical Provider [facility] Depression Screening (08/19/2023) [facility] Depression Screening abstracted Historical Provider [facility] Hepatitis C Screening (12/19/2002) [facility] Hepatitis C Screening abstracted [facility] Provider MD WILL Dailey from Last 3 Months or Most Recently Relevant to Health Maintenance Care Teams Wire Rope Fabrication Supervisor Relationship Specialty Start Date End Date Monika Hernandez MD [address] [place] [id number] PCP - General Internal Medicine 06/02/22
--- OUTSIDE RECORDS SUMMARY | 2024-12-07 15:44 | XMS_ITS | Encounter Summary ---
Author Organization [facility] Address [address] [place] [address] Care Team Providers Care Forest Fire Warden Name Role Phone Monika Hernandez MD Primary Care Prov ider Reason for Visit * Reason Comments Follow-up Ingrown toenail Encounter Details Date Type Department Care Team ([facility] st Contact Info) Description 11/24/2024 8:15 AM EST Office Visit Orthopedic Surgery - [place] [address] [phone] Markell Freeman, DPM [address] [address] Dermatophytosis of nail (Primary Dx); Ingrowing nail [...] care for your loved ones. For example, children's service worker or elderly care for an older adult? [...] for this visit. ALLERGIES: Extract of poison chandni PHYSICAL EXAM: Height 5' 6 (1.676 m), [...] 9:30 AM EDT Office Visit Adult Medicine [address] [phone] Monika Hernandez MD [address] [place] [address] 01/24/2025 8:15 AM EDT Office Visit Orthopedic Surgery - [place] [address] [phone] Markell Freeman DPM [address] [address] 04/21/2025 8:30 AM EDT Office Visit Adult Medicine [address] [address] Monika Hernandez MD [address] [place] [address] documented as of this encounter Visit Diagnoses Diagnosis Dermatophytosis of nail- Primary Ingrowing nail documented in this encounter Additional Health Concerns Assessment Noted Time PHQ-9 Depression Total Score: 0 10/18/20 24 8:11 AM EST documented as of this encounter Care Teams Forest Fire Warden Relationship Specialty Start Date End Date Monika Hernandez MD [address] [place] [address] PCP - General Internal Medicine 06/02/22 documented as of this encounter
--- OUTSIDE RECORDS SUMMARY | 2024-12-07 15:44 | XMS_ITS | Encounter Summary ---
Author Organization [facility] Address [address] [place] [address] Care Team Providers Care Certified Coder Name Role Phone Monika Hernandez MD Primary Care Prov ider Reason for Visit * Consultation (Routine) - Closed Specialty Diagnoses / Procedures Referred By Contac t Referred To Contact Speech Pathology / Speech Therapy Diagnoses Drooling Monika Hernandez MD [address] [place] [address] Referral ID Status Reason Start Date Expiration Date V isits Requested Visits Authorized [id number] Closed Specialty Services Required 10/18/2024 10/18/2025 1 1 Encounter Details Date Type Department Care Team (Late st Contact Info) Description 11/23/2024 2:15 PM EST Evaluation [place] Speech Therapy [address] [place] [phone] Merle Sow, OUTSIDE SALESMAN Dysphagia, oropharyngeal (Primary Dx); Drooling Social History [...] for your loved ones. For example, child adolescent psychiatrist or elderly care for an older adult? [...] from the original note were not included. [facility] SPEECH THERAPY [address] [place] [phone] Dept: [phone] Dept SPEECH THERAPY CLINICAL SWALLOWING EVALUATION Date: 11/23/2024 Visit Number: 1 Patient Name: Wild Gilbert : 1950 Age: 74 y.o. Gender: male Diagnosis: ICD-10-CM ICD-9-CM 1. Dysphagia, oropharyngeal R13.12 787.22 2. Drooling K11.7 527.7 Ambulatory referral to Speech Therapy Date of Onset: 10/18/2024 Referring Provider: Monika Hernandez Pt ID by: Self, Full Name and Language: Speaks and understands Kyrgyz as preferred language with no liquefier required Change in status: no; Chart Reviewed: [...] Labial Sensation: Within Functional Limits Lingual Appearance: [place], Moist Lingual ROM: Within Functional Limits Lingual [...] No Skilled Therapy Required Plan No Skilled OUTSIDE SALESMAN: Independent with swallowing OUTSIDE SALESMAN - Evaluation Status: Complete Planned Therapy Interventions: {INTERVENTIONS: Evaluation of Oral and Pharyngeal Swallowing Function (08023) Recommended Consults: none BILLING (This Date of Service 11/23/2024) Timed Services: Untimed Services: Swallowing Function Time Entry Clinical Swallow Eval Time Entry: 45 TOTAL TREATMENT TIME: 45 Minutes Documentation completed by ANIA Stark [facility] SPEECH THERAPY [address] [address] Dept: [phone] Dept PATIENT NAME: Wild Gilbert : 1950 documented in this encounter Plan of Treatment Upcoming Encounters Date Type Department Care Team (Late st Contact Info) Description 01/19/2025 9:30 AM EDT Office Visit Adult Medicine [address] [phone] Monika Hernandez MD [address] [place] [address] 01/24/2025 8:15 AM EDT Office Visit Orthopedic Surgery [place] [address] [phone] Markell Freeman DPM [address] [address] 04/21/2025 8:30 AM EDT Office Visit Adult Medicine [address] [phone] Monika Hernandez MD [address] [place] [address] documented as of this encounter Visit Diagnoses [...] documented as of this encounter Care Teams Certified Coder Relationship Specialty Start Date End Date Monika Hernandez MD [address] [place] [address] PCP - General Internal Medicine 06/02/22 documented as of this encounter
--- OUTSIDE RECORDS SUMMARY | 2024-12-07 15:44 | XMS_ITS | Encounter Summary ---
Author Organization [facility] Address [address] [place] [address] Care Team Providers Care Inspector And Sorter Name Role Phone Monika Hernandez MD Primary Care Prov ider Encounter Details Date Type Department Care Team (Late st Contact Info) Description 11/23/2024 Plan of Care Documentation [facility] Speech Therapy 175 [facility] [address] [place] [address] Social History Tobacco Use Types [...] for your loved ones. For example, child support investigator or elderly care for an older adult? [...] 9:30 AM EDT Office Visit Adult Medicine [address] [phone] Monika Hernandez MD [address] [place] [address] 01/24/2025 8:15 AM EDT Office Visit Orthopedic Surgery [address] [phone] Markell Freeman D[place]ilver 175 [facility] [address] [place] [address] 04/21/2025 8:30 AM EDT Office Visit Adult Medicine [address] [phone] Monika Hernandez MD [address] [place] [phone] documented as of this encounter Visit Diagnoses Not on filedocumented in this encounter Additional Health Concerns Assessment Noted Time PHQ-9 Depression Total Score: 0 10/18/20 24 8:11 AM EST documented as of this encounter Care Teams Inspector And Sorter Relationship Specialty Start Date End Date Monika Hernandez MD [address] [place] [phone] PCP - General Internal Medicine 06/02/22 documented as of this encounter
== END 2024-12-07 14:29 | disposition home or self-care (01) ==
LOC: HO.XRAY 14:28
PROVIDERS: PCP Internal Medicine; Visit Provider Psychiatry & Neurology Neurology
DX: M54.2 Cervicalgia (principal)
CPT/HCPCS: 72040

== ENCOUNTER → 2024-12-07 14:38 | Outpatient (BNV) | payer MEDICARE, OTHER, SELFPAY | PROVIDERS: PCP Internal Medicine; Visit Provider Radiology Diagnostic Radiology | DX: M54.2 Cervicalgia (principal) | CPT/HCPCS: 72040 ==

== ENCOUNTER 2024-12-09 07:20 | Outpatient (REF) | payer MEDICARE, OTHER, SELFPAY ==
--- NOTE | ~2024-12-09 | MR_ITS ---
EXAMINATION: MR BRAIN WITHOUT CONTRAST CLINICAL INFORMATION: Bradykinesia, other abnormal involuntary movements. 74-year-old male. Forgetfulness, loss of muscle strength, difficulty sleeping and concentrating, symptoms x2-4 years. No history of injury. COMPARISON: None available. TECHNIQUE: MRI of the brain was obtained using routine sequences without contrast. Examination performed on a 1.5 Teresa Siemens high-field magnet. FINDINGS: There is no diffusion restriction. There is no intracranial hemorrhage, acute infarction, mass effect, or edema. Ventricles, sulci, and cisterns are normal in size and configuration for patient age. No shift of midline. Basal cisterns are patent. Tiny focus of hemosiderin deposition in the medial left thalamus, likely related to old tiny lacunar infarct. There are a few scattered punctate and minimally confluent foci of white matter T2 hyperintensity in the periventricular, subcortical, and hemispheric deep white matter, nonspecific. 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 There are 2 tiny old lacunar type infarcts also noted in the posterior left maldonado radiata, directly abutting the lateral ventricle. Prominent perivascular spaces in the midbrain. Midline structures appear normally formed. Mildly prominent cisterna magna, normal variant. Partial empty sella. Posterior fossa structures appear normal. Cerebellar tonsils are appropriately located. Major flow voids are preserved within the skull base. There is a right parietal DVA. The globes and orbital contents demonstrate no abnormalities. There are bilateral lens replacements. Paranasal sinuses demonstrate minimal bilateral ethmoid mucosal thickening, and a mucous retention cyst in the left dependent maxillary antrum. They are otherwise clear. Nasal septum is midline without spur. The mastoids and tympanic cavities are normally aerated. Extracranial soft tissues demonstrate no abnormalities. No suspicious bone marrow changes are evident. Atlantoaxial joint is intact with mild to moderate degenerative change. MR/MR head/brain wo con IMPRESSION: 1. No evidence of intracranial hemorrhage, acute infarction, mass effect, or edema. 2. 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 There are 2 additional tiny old lacunar type infarcts also present in the posterior left maldonado radiata 3. Minimal small vessel ischemic changes in the deep white matter. 4. Right parietal developmental venous anomaly, normal variant. 5. Cannot assess the substantia nigra without utilizing a 3 Teresa high-field magnet, with thin sections through the midbrain. 6. Additional ancillary findings as discussed in the body of the report. Electronically signed by: Cal Doyle MD 12/09/2024 08:54 AM NITA LASSITER
--- OUTSIDE RECORDS SUMMARY | 2024-12-09 07:22 | XMS_ITS | Encounter Summary ---
Author Organization [facility] Address [address] [place] [address] Care Team Providers Care Materials Planner Name Role Phone Monika Hernandez MD Primary Care Prov ider Reason for Visit * Consultation (Routine) - Closed Specialty Diagnoses / Procedures Referred By Contac t Referred To Contact Speech Pathology / Speech Therapy Diagnoses Drooling Monika Hernandez MD [address] [place] [id number] Referral ID Status Reason Start Date Expiration Date V isits Requested Visits Authorized [id number] Closed Specialty Services Required 10/18/2024 10/18/2025 1 1 Encounter Details Date Type Department Care Team (Late st Contact Info) Description 11/23/2024 2:15 PM EST Evaluation [facility] Speech Therapy [address] [place] [phone] Merle Sow, PERCHER Dysphagia, oropharyngeal (Primary Dx); Drooling Social History [...] for your loved ones. For example, childcare attendant or elderly care for an older [...] from the original note were not included. [facility] SPEECH THERAPY [address] [place] [address] Dept: [phone] Dept SPEECH THERAPY CLINICAL SWALLOWING EVALUATION Date: 11/23/2024 Visit Number: 1 Patient Name: Wild Gilbert : 1950 Age: 74 y.o. Gender: male Diagnosis: ICD-10-CM ICD-9-CM 1. Dysphagia, oropharyngeal R13.12 787.22 2. Drooling K11.7 527.7 Ambulatory referral to Speech Therapy Date of Onset: 10/18/2024 Referring Provider: Monika Hernandez Pt ID by: Self, Full Name and Language: Speaks and understands Persian as preferred language with no real estate professional required Change in status: no; Chart Reviewed: [...] Labial Sensation: Within Functional Limits Lingual Appearance: [place], Moist Lingual ROM: Within Functional Limits Lingual [...] No Skilled Therapy Required Plan No Skilled PERCHER: Independent with swallowing PERCHER - Evaluation Status: Complete Planned Therapy Interventions: {INTERVENTIONS: Evaluation of Oral and Pharyngeal Swallowing Function (09547) Recommended Consults: none BILLING (This Date of Service 11/23/2024) Timed Services: Untimed Services: Swallowing Function Time Entry Clinical Swallow Eval Time Entry: 45 TOTAL TREATMENT TIME: 45 Minutes Documentation completed by ANIA Stark [facility] SPEECH THERAPY [address] [address] Dept: [phone] Dept PATIENT NAME: Wild Gilbert : 1950 documented in this encounter Plan of Treatment Upcoming Encounters Date Type Department Care Team (Late st Contact Info) Description 01/19/2025 9:30 AM EDT Office Visit Adult Medicine [address] [phone] Monika Hernandez MD [address] [place] [address] 01/24/2025 8:15 AM EDT Office Visit Orthopedic Surgery [place] [address] [phone] Markell Freeman DPM [address] [address] 04/21/2025 8:30 AM EDT Office Visit Adult Medicine [address] [phone] Monika Hernandez MD [address] [place] [address] documented as of this encounter Visit Diagnoses [...] documented as of this encounter Care Teams Materials Planner Relationship Specialty Start Date End Date Monika Hernandez MD [address] [place] [address] PCP - General Internal Medicine 06/02/22 documented as of this encounter
--- OUTSIDE RECORDS SUMMARY | 2024-12-09 07:23 | XMS_ITS | Encounter Summary ---
Author Organization [facility] Address [address] [place] [address] Care Team Providers Care Trust Mail Clerk Name Role Phone Monika Hernandez MD Primary Care Prov ider Encounter Details Date Type Department Care Team (Late st Contact Info) Description 11/23/2024 Plan of Care Documentation [facility] Speech Therapy 175 [facility] 350 [place] [address] Social History Tobacco Use Types [...] your loved ones. For example, child care centre director or elderly care for an older adult? [...] 9:30 AM EDT Office Visit Adult Medicine [address] [phone] Monika Hernandez MD [address] [place] [address] 01/24/2025 8:15 AM EDT Office Visit Orthopedic Surgery [address] [phone] Markell Freeman DPSilver 175 [facility] [address] [place] [address] 04/21/2025 8:30 AM EDT Office Visit Adult Medicine [address] [phone] Monika Hernandez MD [address] [place] [address] documented as of this encounter Visit Diagnoses Not on filedocumented in this encounter Additional Health Concerns Assessment Noted Time PHQ-9 Depression Total Score: 0 10/18/20 24 8:11 AM EST documented as of this encounter Care Teams Trust Mail Clerk Relationship Specialty Start Date End Date Moniak Hernandez MD [address] [place] [address] PCP - General Internal Medicine 06/02/22 documented as of this encounter
--- OUTSIDE RECORDS SUMMARY | 2024-12-09 07:23 | XMS_ITS | Encounter Summary ---
Author Organization [facility] Address [address] [place] [address] Care Team Providers Care Marketing Director Assisted Living Name Role Phone Monika Hernandez MD Primary Care Prov ider Reason for Visit * Reason Comments Follow-up Ingrown toenail Encounter Details Date Type Department Care Team ([facility] st Contact Info) Description 11/24/2024 8:15 AM EST Office Visit Orthopedic Surgery - [place] [address] [phone] Markell Freeman, DPM [address] [address] Dermatophytosis of nail (Primary Dx); Ingrowing nail [...] care for your loved ones. For example, professor of early childhood education or elderly care for an older adult? [...] 9:30 AM EDT Office Visit Adult Medicine [address] [phone] Monika Hernandez MD [address] [place] [address] 01/24/2025 8:15 AM EDT Office Visit Orthopedic Surgery - [place] [address] [phone] Markell Freeman DPM [address] [address] 04/21/2025 8:30 AM EDT Office Visit Adult Medicine [address] [address] Monika Hernandez MD [address] [place] [address] documented as of this encounter Visit Diagnoses Diagnosis Dermatophytosis of nail- Primary Ingrowing nail documented in this encounter Additional Health Concerns Assessment Noted Time PHQ-9 Depression Total Score: 0 10/18/20 24 8:11 AM EST documented as of this encounter Care Teams Marketing Director Assisted Living Relationship Specialty Start Date End Date Monika Hernandez MD [address] [place] [address] PCP - General Internal Medicine 06/02/22 documented as of this encounter
--- OUTSIDE RECORDS SUMMARY | 2024-12-09 07:23 | XMS_ITS | Clinical Summary ---
Author Organization [facility] Address 175 [place] [address] Phone Care Team Providers Care Mill And Coal Transport Operator Name Role Phone Monika Hernandez MD Primary [...] 02/08/2018 Obstructive sleep apnea 01/14/2018 Overview (08/02/2024): [facility] Home Polysomnogram: Date 01/12/2018; AHI 11, Unclassified [...] 8:15 AM EST Office Visit Orthopedic Surgery [facility] 250 175 [facility] 250 [place] [phone] Markell Freeman, DPM Dermatophytosis of nail (Primary Dx); Ingrowing nail 11/23/2024 2:15 PM EST Evaluation [facility] Speech Therapy [address] [phone] Merle Sow, OFFICE SUPPORT ASSOCIATE Dysphagia, oropharyngeal (Primary Dx); Drooling 11/23/2024 Plan of Care Documentation [facility] Speech Therapy [address] [phone] 10/18/2024 8:00 AM EST Office Visit Adult Medicine [address] [phone] Monika Hernandez MD Encounter for annual general medical examination with abnormal findings in adult (Primary Dx); Essential hypertension, benign; Mixed hyperlipidemia; Drooling; Advance care planning 10/03/2024 3:37 PM EST Anesthesia Event [facility] Endoscopy [address] [place] [phone] Juan Alberto Serrano MD 10/03/2024 2:23 PM EST - 10/03/2024 11:59 PM EST Hospital Encounter [facility] Endoscopy [address] [place] [address] Gwen Barnes MD Piela, Juan Alberto Sanches MD Personal history of colon polyps, unspecified; Esophagitis; Dysphagia Discharge Disposition: Home or Self Care 09/20/2024 8:15 AM EST Office Visit Orthopedic Surgery - [place] 250 175 [facility] [address] [place] [address] Markell Freeman, DPM Ingrowing nail (Primary Dx); Dermatophytosis of nail 09/13/2024 Telephone Gastroenterology [facility] 175 [facility] 175 [facility] 200 [place] [address] Romero Lizarraga, PA from Last 3 Months Immunizations Name Administration [...] Surgery Date Site/Laterality Comments COLONOSCOPY 12/2002 PROCEDURE: [place] COLONOSCOPY STOMA DX INCLUDING COLLJ SPEC SPX COLONOSCOPY W/ POLYPECTOMY 01/24/13 PROCEDURE: [place] COLSC FLX W/RMVL OF TUMOR POLYP LESION [...] for your loved ones. For example, child development consultant or elderly care for an older adult? [...] 9:30 AM EDT Office Visit Adult Medicine [address] [phone] Monika Hernandez MD [address] [place] [address] 01/24/2025 8:15 AM EDT Office Visit Orthopedic Surgery - [place] [address] [phone] Markell Freeman, DPM [address] [address] 04/21/2025 8:30 AM EDT Office Visit Adult Medicine [address] [phone] Monika Hernandez MD [address] [place] [address] Health Maintenance Due Date Last Done Comments Zoster Vaccines (1 of 2) 02/16/2000 COVID-19 Vaccine ( season) 2024 09/30/2023, 08/18/2022, 08/18/2022, Additional history exists RSV Immunization Patients 60+ Years Old (1 - 1-dose 75+ series) 2025 Hypertension/CHF/CAD Annual BMP Blood Test 04/21/2025 04/21/2024, 04/21/2024 Falls Risk Assessment 10/03/2025 10/03/2024, 023 Depression Screening 10/18/2025 10/18/2024, 08/19/20 23 Medicare Annual Wellness Visit 10/18/2025 10/18/2024 Social [...] Maintenance Results * COLONOSCOPY Anesthesia - MAC; [facility] ENDOSCOPY (10/03/2024 4:09 PM EST) Anatomical [...] or older). Narrative 10/03/2024 4:13 PM EST [facility] GI Patient Name: Wild Gilbert Procedure [...] verified by the physician, the nurse, the medical receptionist medical assistant ? and the compliance technician in the pre-procedure area in the [...] Procedure Code(s): ? --- Professional --- ? 97428, Colonoscopy, flexible; with removal of ? tumor(s), polyp(s), or other lesion(s) by snare ? technique ? 86957, 59, Colonoscopy, flexible; with biopsy, single ? or multiple Diagnosis Code(s): ? --- Professional --- ? D12.5, Benign neoplasm of sigmoid colon ? D12.0, Benign neoplasm of cecum ? D12.2, Benign neoplasm of ascending colon CPT copyright 2020 [employer]. All rights reserved. The codes documented in this report are preliminary and upon first responder review may be revised to meet current compliance requirements. Gwen Barnes MD 10/03/2024 4:13:22 PM This report has been signed electronically.Gwen Barnes MD Number of Addenda: 0 Note Initiated On: 10/03/2024 3:40 PM Scope Withdrawal Time: 0 hours 10 minutes 2 seconds Scope In: 3:46:25 PM Scope Out: 4:01:36 PM ? Endoscopy Department at [facility] - [address] [place] [address], ? [place] [address] Procedure Note Gwen Barnes MD - 10/03/2024 [facility] GI Patient Name: Wild Gilbert Procedure [...] the physician, the nurse, theanesthetist and the compliance technician in the pre-procedure area in the [...] reduce spontaneously). Procedure Code(s): --- Professional --- 26331, Colonoscopy, flexible; with removal of tumor(s), polyp(s), or other lesion(s) by snare technique 01798, 59, Colonoscopy, flexible; with biopsy,single or multiple Diagnosis Code(s): --- Professional --- D12.5, Benign neoplasm of sigmoid colon D12.0, Benign neoplasm of cecum D12.2, Benign neoplasm of ascending colon CPT copyright 2020 [employer]. All rights reserved. The codes documented in this report are preliminary and upon first responder reviewmay be revised to meet current compliance requirements. Gwen Barnes MD 10/03/2024 4:13:22 PM This report has been signed electronically.Gwen Barnes MD Number of Addenda: 0 Note Initiated On: 10/03/2024 3:40 PM Scope Withdrawal Time: 0 hours 10 minutes 2 seconds Scope In: 3:46:25 PM Scope Out: 4:01:36 PM Endoscopy Department at [address] [address] IMPRESSION: - Two 2 to 3 mm [...] ORDERA BLES * EGD Anesthesia - MAC; [facility] ENDOSCOPY (10/03/2024 4:09 PM EST) Anatomical Region Laterality Modality Endoscopy 10/03/2024 3:40 PM EST Impressions 10/03/2024 4:10 PM EST - Normal examined duodenum. ? - Small hiatal hernia. ? - Benign-appearing esophageal stenosis. Dilated. ? - No specimens collected. Recommendation: ?- Follow an antireflux regimen. ? - Use a proton pump inhibitor PO daily. Narrative 10/03/2024 4:10 PM EST [facility] GI Patient Name: Wild Gilbert Procedure [...] verified by the physician, the nurse, the medical receptionist medical assistant ? and the compliance technician in the pre-procedure area in the [...] Procedure Code(s): ? --- Professional --- ? 87311, Esophagogastroduodenoscopy, flexible, ? transoral; with transendoscopic balloon dilation of ? esophagus (less than 30 mm diameter) Diagnosis Code(s): ? --- Professional --- ? K22.2, Esophageal obstruction ? K44.9, Diaphragmatic hernia without obstruction or ? gangrene CPT copyright 2020 [employer]. All rights reserved. The codes documented in this report are preliminary and upon first responder review may be revised to meet current compliance requirements. Gwen Barnes MD 10/03/2024 4:10:51 PM This report has been signed electronically.Gwen Barnes MD Number of Addenda: 0 Note Initiated On: 10/03/2024 3:40 PM Scope In: Scope Out: ? Endoscopy Department at [facility] - [address] [place] [address], ? [place] [address] Procedure Note Gwen Barnes MD - 10/03/2024 [facility] GI Patient Name: Wild Gilbert Procedure [...] the physician, the nurse, theanesthetist and the compliance technician in the pre-procedure area in the [...] the esophagus. Procedure Code(s): --- Professional --- 48712, Esophagogastroduodenoscopy, flexible, transoral; with transendoscopic balloon dilation of esophagus (less than 30 mm diameter) Diagnosis Code(s): --- Professional --- K22.2, Esophageal obstruction K44.9, Diaphragmatic hernia without obstruction or gangrene CPT copyright 2020 [employer]. All rights reserved. The codes documented in this report are preliminary and upon first responder reviewmay be revised to meet current compliance requirements. Gwen Barnes MD 10/03/2024 4:10:51 PM This report has been signed electronically.Gwen Barnes MD Number of Addenda: 0 Note Initiated On: 10/03/2024 3:40 PM Scope In: Scope Out: Endoscopy Department at [address] [address] IMPRESSION: - Normal examined duodenum. - Small [...] polyp x1: -TUBULAR ADENOMA 10/06/2024 12:17 PM [facility] Gross Description A. Large Intestine, Cecum, [...] pieces, multiple levels. dvb/SL 10/06/2024 12:17 PM [facility] Disclaimer Unless otherwise specified, all tissue is 10% NB formalin fixed and paraffin embedded. 10/06/2024 12:17 PM [facility] Tissue Cecum structure / Unknown 10/03/2024 3:51 PM EST 10/03/2024 4:51 PM EST Tissue specimen (specimen) Ascending colon structure / Unknown 10/03/2024 3:56 PM EST 10/03/2024 4:51 PM EST Tissue specimen (specimen) Sigmoid colon structure / Unknown 10/03/2024 3:59 PM EST 10/03/2024 4:51 PM EST Gwen Barnes MD LAB PATHOLOGY ORDER [facility] [address] [place] [address], * Annual BMP Blood Test (04/21/2024) Pathologist [facility] Annual BMP Blood Test abstracted Historical Provider MD WILL LARA E * Lipid panel (04/21/2024) [facility] LDL/HDL Ratio 3 0 - 4 Triglycerides 86 0 - 150 mg/dL Cholesterol 143 0 - 200 mg/dL HDL 49 40 mg/dL LDL Cholesterol 77 0 - 100 mg/dL Blood Venous blood specimen / Unknown Historical Provider LAB BLOOD ORDERAB LES * Falls Risk Assessment (08/19/2023) [facility] Falls Risk Assessment abstracted Historical Provider MD WILL LARA * Depression Screening (08/19/2023) [facility] Depression Screening abstracted Historical Provider MD WILL LARA * Hepatitis C Screening (12/19/2002) [facility] Hepatitis C Screening abstracted Historical Provider MD WILL Dailey from Last 3 Months or Most Recently Relevant to Health Maintenance Care Teams Mill And Coal Transport Operator Relationship Specialty Start Date End Date Monika Hernandez MD [address] [place] [address] PCP - General Internal Medicine 06/02/22
== END 2024-12-09 07:21 | disposition home or self-care (01) ==
LOC: HO.MRI 07:20
PROVIDERS: PCP Internal Medicine; Visit Provider Psychiatry & Neurology Neurology
DX: R25.8 Other abnormal involuntary movements (principal)

== ENCOUNTER → 2024-12-09 07:28 | Outpatient (BNV) | payer MEDICARE, OTHER, SELFPAY | PROVIDERS: PCP Internal Medicine; Visit Provider Radiology Diagnostic Radiology | DX: R25.8 Other abnormal involuntary movements (principal) | CPT/HCPCS: 70551 ==

== ENCOUNTER 2025-01-24 14:22 | Outpatient (AMB) | payer MEDICARE, OTHER, SELFPAY ==
[2025-01-24 14:42] VITALS: BP 122/72; PULSE 76; O2SAT 99; BMI 26.3
--- NOTE | 2025-01-24 14:42 | MHC.OFFVIS ---
Vital Signs 01/24/25 14:42 Height 5 ft 6 in Weight 163 lb BMI 26.3 BP 122/72 Blood Pressure Location Lt brachial Position Sitting Pulse 76 Pulse Source Pulse Oximeter Pulse Oximetry (%) 99 Oxygen Delivery Method Room Air Intake Visit Reasons: Follow Up 2mo Intake Note: Patient presents for 2 month follow up. X-ray and MRI in chart and both done on 12/09/24. Allergies No Known Allergies Allergy (Verified 01/24/25 14:44) HPI Comments Details: 74y/o R. handed male comes for evaluation of slowness in movements, tremors and excessive drooling. The hand tremors are mild at rest bilaterally L>R. The drooling started 6-9 mths ago and he is embarrassed when he has dinners with his family and friends. He has night time drooling and during daytime when he bends down he drools. He does not realize that he is drooling sometimes, uncontrollable for hours with dry mouth, he doesn't sense the saliva coming down the chin and wakes up with his pillow wet in the am. No change in swallowing. His speech is softer. He feels he is not as coordinated as before and has difficulty with writing, using utensils, and dressing. His gait is slower and mildly off balance, worse in the last 6mos. He had some near falls, due to balance, feels dizzy, as if spinning internally d/t vertigo. he has difficulty turning in bed. He has trouble recalling, word finding difficulties, loses focus, can't concentrate on tasks, stm difficulties. He has nocturia, 3-4x at night Sleep, he used to have bad dreams, due to work in law enforcement, screaming and kicking during sleep, now his sleep is better. He feels he is more anxious now yet less depressed, and wants to have his sleep evaluated. He has constipation- he manages his diet, has been drinking lots of water and takes a stool softner and now has a BM every 3 days. He denies A/V hallucinations. He also reports right occipital shooting pain - electric shock like sensation -used to be daily now it is less frequent. [facility] Medical History Occipital neuralgia of right side Bradykinesia Drooling Rotator cuff tear Insomnia Anxiety HTN (hypertension) Hyperlipidemia Borderline diabetes NICA (obstructive sleep apnea) Erectile dysfunction Periodic limb movement Orthostatic hypotension SOB (shortness of breath) Dysphagia Electrical shock sensation Surgical History H/O shoulder surgery Family History Mother CAD (coronary artery disease) Acquired cataract Father No problems noted. Social History Alcohol intake: current Patient Tobacco Use Status: Never used Tobacco Physical Exam Vital Signs: Last Vital Signs Pulse 76 01/24/25 14:42 BP 122/72 01/24/25 14:42 Pulse Ox 99 01/24/25 14:42 Oxygen Delivery Method Room Air 01/24/25 14:42 BMI result Body Mass Index 26.3 Orientation What is the (year) (season) (date) (day) (month)?: year, season, date, day and month Where are we (state) (county) (town or city) (hospital) (floor)?: state, county, town or city and floor Registration Name of 3 unrelated objects clearly and slowly, then ask patient to repeat all 3 of them. (1st repeat determines score. Make sure they can repeat all three): object 1, object 2 and object 3 Attention & Calculation (CHOOSE ONE) Spell WORLD backwards (DLROW): 5 letters Recall Ask patient to repeat the 3 items from question #3.: object 1, object 2 and object 3 Language Show patient a wristwatch & ask what it is. Repeat for pencil.: watch and pencil Ask the patient to repeat the phrase 'No ifs, ands, or buts' after you.: correct Ask the patient to 'take a piece of paper with their right hand' 'fold paper in half' 'place paper on floor': take paper in right hand, fold paper in half and place paper on floor Print the sentence 'CLOSE YOUR EYES' on a piece. If patient actually closes eyes then score.: followed written direction Give patient a blank piece of paper & ask to write a sentence. Score if it contains a noun & verb.: sentence contains subject and verb Score Score: 28 Results Reviewed Results Reviewed: MR/MR head/brain wo con IMPRESSION: 1. No evidence of intracranial hemorrhage, acute infarction, mass effect, or edema. 2. 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 There are 2 additional tiny old lacunar type infarcts also present in the posterior left maldonado radiata 3. Minimal small vessel ischemic changes in the deep white matter. 4. Right parietal developmental venous anomaly, normal variant. 5. Cannot assess the substantia nigra without utilizing a 3 Teresa high-field magnet, with thin sections through the midbrain. 6. Additional ancillary findings as discussed in the body of the report. Cervical Spine Xray 12/2024 Impression: Technically difficult exam. Extensive diffuse idiopathic skeletal hyperostosis changes throughout. Solid ankylosis C2 through C5 and severe degenerative disc changes C5-6 and C6-7. Mild lateral asymmetry at C1-2 of questionable etiology and significance. If recent trauma, follow-up for ligamentous injury with MRI suggested. Assessment & Plan Assessment & Plan (1) History of difficulty sleeping: Code(s): Z72.821 - Inadequate sleep hygiene Category: Medical (2) Drooling: Code(s): K11.7 - Disturbances of salivary secretion Category: Medical (3) Tremor of both outstretched hands: Code(s): R25.1 - Tremor, unspecified Category: Medical (4) Dry mouth: Code(s): R68.2 - Dry mouth, unspecified Category: Medical (5) Bradykinesia: Comment: with cogwheel rigidity , Kyphosis, hypophonia, gait imbalance Code(s): R25.8 - Other abnormal involuntary movements Category: Medical (6) Bradykinesia: Comment: with cogwheel rigidity , Kyphosis, hypophonia, gait imbalance Code(s): R25.8 - Other abnormal involuntary movements Category: Medical Plan Sinemet Increase CD/LD to TID 1 tab in the AM / 1 tab at noon/ 1 tab at bedtime Patient Education provided re: taking sinemet without any protein products for good absorption efficacy. [facility] - Parkinson Disorder R/I or R/O HST- Sleep Difficulties Reviewed MRI of Head 12/2024 with patient today (lacunar infarcts old and minimal ischemic changes in the white matter) Reviewed Xray of Cervical Spine 12/2024 idiopathic hyperostosis, and solid ankylosis C2-C5 degenerative changes with fusion, due to trauma likely. f/u in 2 months Orders: Orders RT home sleep study Today G47.19 - Other hypersomnia [facility] Today K11.7 - Disturbances of salivary secretion, R25.8 - Other abnormal involuntary movements Medications: Changed From carbidopa-levodopa 25-100 mg (Sinemet) 1 tab PO BID 60 tabs 4RF K11.7 - Disturbances of salivary secretion, R25.8 - Other abnormal involuntary movements To carbidopa-levodopa 25-100 mg (Sinemet) Do not eat any protein products with this medication for at least 2 hours. May eat a fruit, drink water or a glass of juice with it. 1 tab PO TID 90 tabs 4RF Parkinsons disorder MDD 3 tablets K11.7 - Disturbances of salivary secretion, R25.8 - Other abnormal involuntary movements Patient Instructions: Sleep Hygiene provided: set a scheduled bedtime and wake time to help regulate the circadian rhythm and balance the release of pituitary hormones. Sleep in a dark room, temperatures below 68 degrees, and no devices n bed. Limit caffeinated products 6 hours prior to bed, and limit fluids 2-4 hours prior to bed. Gentle night yoga, diffusing essential oils, and playing soft music can be relaxing. HST for sleep difficulties f/u with sleep lab [facility] will r/o Parkinsons Monitor Blood pressure Walk daily, low intensity exercises and drink 50% of body weight in water. F/U in 2 months Coding Level of Care Code Est Pt Level 4 (33164) Complex EM visit Add On G2211 Diagnoses History of difficulty sleeping Z72.821 Drooling K11.7 Tremor of both outstretched hands R25.1 Dry mouth R68.2 Bradykinesia R25.8
--- OUTSIDE RECORDS SUMMARY | 2025-01-24 18:03 | XMS_ITS | Encounter Summary ---
Author Organization [facility] Address [address] [place] [address] Care Team Providers Care Corporate Sales Representative Name Role Phone Monika Hernandez MD Primary Care Prov ider Reason for Visit * Reason Comments Nail Problem Encounter Details Date Type Department Care Team ([facility] st Contact Info) Description 01/11/2025 1:15 PM EDT Office Visit Orthopedic Surgery - [place] [address] [phone] Markell Freeman, DPM [address] [id number] Cellulitis of foot (Primary Dx); Ingrowing nail; Dermatophytosis of nail Social History Tobacco Use Types Packs/Day [...] for your loved ones. For example, child specialist or elderly care for an older adult? [...] Recorded Sex Assigned at Not on file Legal Sex Male 1:05 PM EST Gender Identity Not on file Sexual Orientation Not on file documented as of this encounter Last Filed Vital Signs Vital Sign Reading Time Taken Comments Blood Pressure - - Pulse - - Temperature - - Respiratory Rate - - Oxygen Saturation - - Inhaled Oxygen Concentration - - Weight 75.3 kg (166 lb) 01/11/2025 1:04 PM EDT Height - - Body Mass Index 26.81 11/24/2024 8:03 AM EST documented in this encounter Ordered Prescriptions Prescription Sig Dispense Quantity Refills Last Filled Start Date End Date cephalexin (KEFLEX) 500 mg capsule Take 1 capsule (500 mg total) by mouth 3 (three) times a day for 7 days. 21 each 01/11/2025 documented in this encounter Progress Notes * Markell Freeman, DPM - 01/11/2025 1:15 PM EDT S Patient presents today for an urgent appointment to get ingrown nail of his right great toe with redness swelling irritation of his great toes he has been very painful achy pain is 10 out of 10 he denies trauma to the area notes his foot is red hot and swollen ROS: GENERAL: Pt denies nausea, fever, vomiting, [...] plantar flexion WNL. No muscle atrophy. DERMATOLOGICAL:. Cellulitis of the right great toe with ingrown nail plate BIOMECHANICS: STJ ROM wnl, MTJ ROM wnl, 1st MPJ ROM wnl. IMAGING: IMPRESSION: 1. Cellulitis of foot 2. Ingrowing nail 3. Dermatophytosis of nail PLAN: Pt was seen and examined, history reviewed. Discussed surgical procedures would recommend permanent nail matrixectomy removal ingrown portions patient states he like to think about it but does not feel comfortable doing it at this time ingrownportions removed with ethyl chloride spray Ingrown nail portions removed Keflex prescribed per for prescription drug management treatment of cellulitis discussed if rednessor swelling worsens presents to the emergency room Follow-up in 1 to 2 weeks Markell Freeman DPM documented in this encounter Plan of Treatment Upcoming Encounters Date Type Department Care Team (Late st Contact Info) Description 03/09/2025 3:00 PM EDT Office Visit Orthopedic Surgery - [place] [id number] [phone] Markell Freeman DPM [address] [address] 03/14/2025 12:30 PM EDT Office Visit Adult Medicine [address] [phone] Monika Hernandez MD [address] [place] [id number] 04/21/2025 8:30 AM EDT Office Visit Adult Medicine [address] [phone] Monika Hernandez MD [address] [place] [id number] documented as of this encounter Visit Diagnoses Diagnosis Cellulitis of foot- Primary Cellulitis and abscess of foot, except toes Ingrowing nail Dermatophytosis of nail documented in this encounter Additional Health Concerns Assessment Noted Time PHQ-9 Depression Total Score: 0 10/18/20 24 8:11 AM EST documented as of this encounter Care Teams Corporate Sales Representative Relationship Specialty Start Date End Date Monika Hernandez MD [address] [place] [id number] PCP - General Internal Medicine 06/02/22 documented as of this encounter
--- OUTSIDE RECORDS SUMMARY | 2025-01-24 18:03 | XMS_ITS | Clinical Summary ---
Author Organization [facility] Address [address] [place] [address] Phone Care Team Providers Care Production Supply Equipment Tender Name Role Phone Monika Hernandez MD Primary Care Prov ider Allergies Active Allergy Reactions Criticality Noted Date Comments Poison Chandni Extract Itching Medium 11/16/2023 Poison chandni plant Medications alfuzosin (UROXATRAL) 10 mg 24 hr tablet 1 TABLET BEFORE BED 4 Active ciclopirox (LOPROX) 0.77 % gel Apply topically daily 4 Active ciclopirox (LOPROX) 0.77 % cream Apply 1 Applicator topically 2 times daily for 360 days. 4 04/27/20 25 Active clotrimazole (LOTRIMIN) 1 % cream Apply to skin and toenails daily for 12 weeks 4 Active tamsulosin (FLOMAX) 0.4 mg 24 hr capsule Take 1 Capsule by mouth daily. Take 30 mins after same meal every day. 4 Active tolnaftate (TINACTIN) 1 % external solution Apply topically to toenails 4 Active polyethylene glycol (Golytely) 236-22.74-6.74 -5.86 gram solution Take 4L by mouth once for one dose. May substitue any PEG. Starting at 6PM the night before your procedure drink 1 8oz glasses at your own pace until you complete half of the gallon. Finish 2nd half of the gallon 5 hours before your procedure. 4000 mL 4 Active Additional Information Patient not taking.Reported on 10/18/2024 bisacodyL (DULCOLAX) 5 mg EC tablet Take 2 tablets by mouth right before beginning bowel prep. See instructions provided by the office 2 tablet 4 Active Additional Information Patient not taking.Reported on 10/18/2024 lisinopril (PRINIVIL,ZEST RIL) 40 mg tablet TAKE 1 TABLET BY MOUTH EVERY DAY 90 tablet 1 4 Active amLODIPine (NORVASC) 10 mg tablet Take 1 tablet (10 mg total) by mouth 1 (one) time each day. 90 each 3 4 10/18/20 25 Active atorvastatin (LIPITOR) 80 mg tablet Take 1 tablet (80 mg total) by mouth 1 (one) time each day. 90 each 3 4 10/18/20 25 Active ciclopirox (LOPROX) 0.77 % cream Apply topically 2 (two) times a day. Gently massage into affected areas and surrounding skin 30 g 2 5 02/23/20 25 Active cephalexin (KEFLEX) 500 mg capsule Take 1 capsule (500 mg total) by mouth 3 (three) times a day for 7 days. 21 each 5 01/19/20 25 Active Problems Problem Noted Date Diagnosed Date [...] 02/08/2018 Obstructive sleep apnea 01/14/2018 Overview (08/02/2024): [facility] Home Polysomnogram: Date 01/12/2018; AHI [...] Encounters Date Type Department Care Team Description 01/11/2025 1:15 PM EDT Office Visit Orthopedic Surgery [facility] [address] [phone] Markell Freeman, DPM Cellulitis of foot (Primary Dx); Ingrowing nail; Dermatophytosis of nail 11/24/2024 8:15 AM EST Office Visit [facility]opedic [facility] [address] [phone] Markell Freeman, DPM Dermatophytosis of nail (Primary Dx); Ingrowing nail 11/23/2024 2:15 PM EST Evaluation [facility] Speech Therapy [address] [phone] Merle Sow, MANAGER PLACEMENT Dysphagia, oropharyngeal (Primary Dx); Drooling 11/23/2024 Plan of Care Documentation [facility] Speech Therapy [address] [phone] from Last 3 Months Immunizations Name Administration [...] for your loved ones. For example, child and family services specialist or elderly care for an older [...] on file Sexual Orientation Not on file Obstetrics History Last Filed Vital Signs Vital Sign Reading Time Taken Comments Blood Pressure 144/72 10/18/2024 7:53 AM EST Pulse 68 10/18/2024 7:53 AM EST Temperature 36.3 ??C (97.4 ??F) 10/18/2024 7:53 AM ES T Respiratory Rate 16 10/18/2024 7:53 AM EST Oxygen Saturation 96% 10/03/2024 4:30 PM EST Inhaled Oxygen Concentration - - Weight 75.3 kg (166 lb) 01/11/2025 1:04 PM EDT Height 167.6 cm (5' 5.98 ) 11/24/2024 8:03 AM ES T Body Mass Index 26.81 11/24/2024 8:03 AM EST Plan of Treatment Upcoming Encounters Date Type Department Care Team (Late st Contact Info) Description 03/09/2025 3:00 PM EDT Office Visit Orthopedic Surgery - [place] [address] [phone] Markell Freeman [place] [address] [phone] 03/14/2025 12:30 PM EDT Office Visit Adult Medicine [address] [phone] Monika Hernandez MD [address] [place] [phone] 04/21/2025 8:30 AM EDT Office Visit Adult Medicine [address] [phone] Monika Hernandez MD [address] [place] [address] Health Maintenance Due Date Last Done Comments Zoster Vaccines (1 of 2) 02/16/2000 COVID-19 Vaccine ( season) 2024 09/30/2023, 08/18/2022, 08/18/2022, Additional history exists RSV Immunization Patients 60+ Years Old (1 - 1-dose 75+ series) 2025 Falls Risk Assessment 10/03/2025 10/03/2024, 023 Depression Screening 10/18/2025 10/18/2024, 08/19/20 23 Medicare Annual Wellness Visit 10/18/2025 10/18/2024 Social Influencers of Health Screening 10/18/2025 10/18/2024 Hypertension/CHF/CAD Annual BMP Blood Test 01/24/2026 01/24/2025, 04/21/2024, 04/21/2024 DTaP,Tdap,and Td Vaccines (3 - Td or Tdap) 06/21/2029 06/21/2019, 02/22/2008 Colorectal Cancer Screening: Colonoscopy 10/03/2029 10/03/2024, 08/30/2019 Cholesterol Screening (Lipid Panel) 01/24/2030 01/24/2025, 04/21/2024, 04/21/2024 Hepatitis C Screening Completed 12/19/2002 Pneumococcal Vaccine: 50+ Years Completed 06/21/2019, 11/15/2015, 07/26/2013 Influenza Vaccine [...] patient's age to complete this topic Meningococcal B Vacine Aged Out No lo nger eligible based on patient's age to complete this topic RSV Immunization Patients Under 20 months Aged Out No longer eligible based on patient's age to complete this topic Varicella Vaccines Aged Out No longer eligible based on patient's age to complete this topic Procedures Procedure Name Priority Date/Time Associated Diagnosis Comments COMPREHENSIVE METABOLIC PANEL Routine 01/24/2025 7:57 AM EDT Essential hypertension, benign Mixed hyperlipidemia LIPID PANEL WITH REFLEX TO DIRECT LDL Routine 01/24/2025 7:57 AM EDT Essential hypertension, benign Mixed hyperlipidemia XR CERVICAL SPINE 6+ VIEWS Routine 12/07/2024 9:07 AM EST COLONOSCOPY Routine 10/03/2024 4:09 PM EST Personal history of colon polyps, unspecified DEPRESSION SCREENING Routine 08/19/2023 FALLS RISK ASSESSMENT Routine 08/19/2023 HEPATITIS C SCREENING Routine 12/19/2002 from Last 3 Months or Most Recently Relevant to Health Maintenance Results * Lipid panel with reflex to direct LDL (01/24/2025 7:57 AM EDT) Cholesterol 149 0 - 200 mg/dL LAB CHEMISTRY METHOD 01/24/2025 10:52 AM EDT [facility] Triglycerides 79 0 - 150 mg/dL LAB CHEMISTRY METHOD 01/24/2025 10:52 AM EDT [facility] HDL 50 >=40 mg/dL LAB CHEMISTRY METHOD 01/24/2025 10:52 AM EDT [facility] LDL Calculated 83 0 - 100 mg/dL LAB CHEMISTRY METHOD 01/24/2025 10:52 AM EDT [facility] VLDL Cholesterol Marlon 15.8 mg/dL LAB CHEMISTRY METHOD 01/24/2025 10:52 AM [facility] Non HDL Chol. (LDL+VLDL) 99 <145 mg/dL LAB CHEMISTRY METHOD 01/24/2025 10:52 AM [facility] Chol/HDL Ratio 3.0 0.0 - 4.4 LAB CHEMISTRY METHOD 01/24/2025 10:52 AM [facility] Blood Venous blood specimen / Unknown Venipuncture / Unknown 01/24/2025 7:57 AM EDT 01/24/2025 7:57 AM EDT Monika Hernandez MD LAB BLOOD ORDERABL ES Final Result [facility] [address] [place] [address], [place] [phone] * (ABNORMAL) Comprehensive metabolic panel (01/24/2025 7:57 AM EDT) Sodium 140 133 - 145 mmol/L LAB CHEMISTRY METHOD 01/24/2025 10:52 AM [facility] Potassium 3.7 3.5 - 5.5 mmol/L LAB CHEMISTRY METHOD 01/24/2025 10:52 AM [facility] Chloride 107 96 - 110 mmol/L LAB CHEMISTRY METHOD 01/24/2025 10:52 AM [facility] CO2 29 21 - 32 mmol/L LAB CHEMISTRY METHOD 01/24/2025 10:52 AM [facility] Anion Gap 4 3 - 11 LAB CHEMISTRY METHOD 01/24/2025 10:52 AM [facility] Glucose 103(H) 70 - 100 mg/dL LAB CHEMISTRY METHOD 01/24/2025 10:52 AM [facility] BUN 16 5 - 25 mg/dL LAB CHEMISTRY METHOD 01/24/2025 10:52 AM [facility] Creatinine 0.88 0.70 - 1.30 mg/dL LAB CHEMISTRY METHOD 01/24/2025 10:52 AM [facility] eGFR 90 >=60 mL/min/1. 73m2 LAB CHEMISTRY METHOD 01/24/2025 10:52 AM [facility] Comment:Calculation based on the??Chronic Kidney Disease Epidemiology Collaboration (CKD-EPI) equation refit??without adjustment for race. BUN/Creatinine Ratio 18.2 LAB CHEMISTRY METHOD 01/24/2025 10:52 AM [facility] Calcium 9.4 8.5 - 10.5 mg/dL LAB CHEMISTRY METHOD 01/24/2025 10:52 AM [facility] AST (SGOT) 12 10 - 42 unit/L LAB CHEMISTRY METHOD 01/24/2025 10:52 AM [facility] ALT (SGPT) 16 10 - 60 unit/L LAB CHEMISTRY METHOD 01/24/2025 10:52 AM [facility] Alkaline Phosphatase 116 42 - 121 unit/L LAB CHEMISTRY METHOD 01/24/2025 10:52 AM [facility] Total Protein 6.9 6.0 - 8.0 g/dL LAB CHEMISTRY METHOD 01/24/2025 10:52 AM [facility] Albumin 4.0 3.2 - 5.0 g/dL LAB CHEMISTRY METHOD 01/24/2025 10:52 AM [facility] Total Bilirubin 0.9 0.0 - 1.4 mg/dL LAB CHEMISTRY METHOD 01/24/2025 10:52 AM [facility] Blood Venous blood specimen / Unknown Venipuncture / Unknown 01/24/2025 7:57 AM EDT 01/24/2025 7:57 AM EDT Monika Hernandez MD LAB BLOOD ORDERABL ES Final Result [facility] [address] [place] [address], * XR Cervical Spine 6+ Views (12/07/2024 9:07 AM EST) Anatomical Region Laterality Modality Spine, C-spine Radiographic Tiffani ging Historical Provider IMG XR PROCEDURES Final R esult * COLONOSCOPY Anesthesia - MAC; [facility] ENDOSCOPY (10/03/2024 4:09 PM EST) [...] or older). Narrative 10/03/2024 4:13 PM EST [facility] GI Patient Name: Wild Gilbert Procedure Date: [...] verified by the physician, the nurse, the wet process head miller ? and the certified bench jeweler technician in the pre-procedure area in the [...] Procedure Code(s): ? --- Professional --- ? 44630, Colonoscopy, flexible; with removal of ? tumor(s), polyp(s), or other lesion(s) by snare ? technique ? 92201, 59, Colonoscopy, flexible; with biopsy, single ? or multiple Diagnosis Code(s): ? --- Professional --- ? D12.5, Benign neoplasm of sigmoid colon ? D12.0, Benign neoplasm of cecum ? D12.2, Benign neoplasm of ascending colon CPT copyright 2020 [employer]. All rights reserved. The codes documented in this report are preliminary and upon personal injury litigation paralegal review may be revised to meet current compliance requirements. Gwen Barnes MD 10/03/2024 4:13:22 PM This report has been signed electronically.Gwen Barnes MD Number of Addenda: 0 Note Initiated On: 10/03/2024 3:40 PM Scope Withdrawal Time: 0 hours 10 minutes 2 seconds Scope In: 3:46:25 PM Scope Out: 4:01:36 PM ? Endoscopy Department at [facility] - [address] [place] [address], ? [place] [address] Procedure Note Gwen Barnes MD - 10/03/2024 [facility] GI Patient Name: Wild Gilbert Procedure Date: [...] the physician, the nurse, theanesthetist and the certified bench jeweler technician in the pre-procedure area in the [...] reduce spontaneously). Procedure Code(s): --- Professional --- 91453, Colonoscopy, flexible; with removal of tumor(s), polyp(s), or other lesion(s) by snare technique 16853, 59, Colonoscopy, flexible; with biopsy,single or multiple Diagnosis Code(s): --- Professional --- D12.5, Benign neoplasm of sigmoid colon D12.0, Benign neoplasm of cecum D12.2, Benign neoplasm of ascending colon CPT copyright 2020 [employer]. All rights reserved. The codes documented in this report are preliminary and upon personal injury litigation paralegal reviewmay be revised to meet current compliance requirements. Gwen Barnes MD 10/03/2024 4:13:22 PM This report has been signed electronically.Gwen Barnes MD Number of Addenda: 0 Note Initiated On: 10/03/2024 3:40 PM Scope Withdrawal Time: 0 hours 10 minutes 2 seconds Scope In: 3:46:25 PM Scope Out: 4:01:36 PM Endoscopy Department at [address] [phone] IMPRESSION: - Two 2 to 3 mm [...] (66years or older). Gwen Barnes MD GI~PROCEDURE ORDERABLES Fin al Result * Falls Risk Assessment (08/19/2023) Falls Risk Assessment abstracted Historical Provider HEALTH MAINTENANCE Final Result * Depression Screening (08/19/2023) Depression Screening abstracted Historical Provider HEALTH MAINTENANCE Final Result * Hepatitis C Screening (12/19/2002) Hepatitis C Screening abstracted Historical Provider HEALTH MAINTENANCE Final Result from Last 3 Months or Most Recently Relevant to Health Maintenance Insurance MEDICARE [facility] Care Teams Production Supply Equipment Tender Relationship Specialty Start Date End Date Monika Hernandez MD [address] [place] [phone] PCP - General Internal Medicine 06/02/22
== END 2025-01-24 15:45 | disposition home or self-care (01) ==
LOC: HO.HSMS 14:23
PROVIDERS: PCP Internal Medicine; Visit Provider Physician Assistant Medical
DX: Z72.821 Inadequate sleep hygiene (principal); K11.7 Disturbances of salivary secretion; R25.1 Tremor, unspecified; R68.2 Dry mouth, unspecified; R25.8 Other abnormal involuntary movements
CPT/HCPCS: 99214; G2211

== ENCOUNTER → 2025-01-24 14:22 | Outpatient (BNVA) | payer MEDICARE, OTHER, SELFPAY | PROVIDERS: PCP Internal Medicine; Visit Provider Physician Assistant Medical | DX: K11.7 Disturbances of salivary secretion (principal); R68.2 Dry mouth, unspecified; R25.1 Tremor, unspecified; R25.8 Other abnormal involuntary movements; G47.19 Other hypersomnia; Z72.821 Inadequate sleep hygiene | CPT/HCPCS: 99212 ==

== ENCOUNTER → 2025-03-28 08:14 | Outpatient (REF) | payer MEDICARE, OTHER, SELFPAY ==
--- OUTSIDE RECORDS SUMMARY | 2025-03-28 08:19 | XMS_ITS | Clinical Summary ---
Author Organization [address] [facility] Address [address] [place] [address] Phone Care Team Providers Care Assistant Offset Press Operator Name Role Phone Monika Hernandez MD Primary Care Prov ider Allergies Active Allergy Reactions Criticality Noted Date Comments Poison Rose Extract Itching Medium 11/16/2023 Poison rose plant Medications clotrimazole (LOTRIMIN) 1 % cream Apply to skin and toenails daily for 12 weeks 4 Active lisinopril (PRINIVIL,ZEST RIL) 40 mg tablet TAKE 1 TABLET BY MOUTH EVERY DAY 90 tablet 1 4 Active amLODIPine (NORVASC) 10 mg tablet Take 1 tablet (10 mg total) by mouth 1 (one) time each day. 90 each 3 4 025 Active atorvastatin (LIPITOR) 80 mg tablet Take 1 tablet (80 mg total) by mouth 1 (one) time each day. 90 each 3 4 025 Active carbidopa-levo dopa (SINEMET) 25-100 mg per tablet Take 1 tablet by mouth 2 (two) times a day. 5 Active alfuzosin (UROXATRAL) 10 mg 24 hr tablet 1 TABLET BEFORE BED 4 025 Discontin ued(Non-c ompliance ) ciclopirox (LOPROX) 0.77 % gel Apply topically daily 4 025 Discontin ued(Non-c ompliance ) ciclopirox (LOPROX) 0.77 % cream Apply 1 Applicator topically 2 times daily for 360 days. 4 025 Discontin ued(Non-c ompliance ) tamsulosin (FLOMAX) 0.4 mg 24 hr capsule Take 1 Capsule by mouth daily. Take 30 mins after same meal every day. 4 Discontin ued(Patie nt Discharge ) tolnaftate (TINACTIN) 1 % external solution Apply topically to toenails 4 Discontin ued(Non-c ompliance ) polyethylene glycol (Golytely) 236-22.74-6.74 -5.86 gram solution Take 4L by mouth once for one dose. May substitue any PEG. Starting at 6PM the night before your procedure drink 1 8oz glasses at your own pace until you complete half of the gallon. Finish 2nd half of the gallon 5 hours before your procedure. 4000 mL 4 025 Discontin ued(Non-c ompliance ) bisacodyL (DULCOLAX) 5 mg EC tablet Take 2 tablets by mouth right before beginning bowel prep. See instructions provided by the office 2 tablet Discontin ued(Non-c ompliance ) rOPINIRole (REQUIP) 0.25 mg tablet Take 1 tablet (0.25 mg total) by mouth 3 (three) times a day. 5 025 Discontin ued(Non-c ompliance ) Active Problems Problem Noted Date Diagnosed Date [...] Obstructive sleep apnea 01/14/2018 Overview (08/02/2024): [facility] Home Polysomnogram: Date 01/12/2018; AHI [...] he can manage this. Assessment & Plan (03/14/2025 12:59 PM EDT): Assessment & Plan (10/18/2024 8:40 AM EST): [...] LDL; Future Hyperlipidemia 11/14/2005 Assessment & Plan (03/14/2025 12:59 PM EDT): Assessment & Plan (10/18/2024 8:30 AM EST): Currently on atorvastatin 80 mg a day. Last LDL was 79. We will continue same medication. Low-fat diet and regular exercise were discussed with the patient. Orders: Comprehensive metabolic panel; Future Lipid panel with reflex to direct LDL; Future Insomnia 11/14/2005 Encounters Date Type Department Care Team Description 03/14/2025 12:30 PM EDT Office Visit Adult [address] [phone] Monika Hernandez MD Essential hypertension, benign (Primary Dx); Mixed hyperlipidemia; Actinic keratoses 03/09/2025 3:00 PM EDT Office Visit Orthopedic Surgery [facility] [address] [phone] Markell Freeman DPM Ingrowing nail (Primary Dx); Dermatophytosis of nail 01/11/2025 1:15 PM EDT Office Visit Orthopedic [facility] [address] [phone] Markell Freeman, DPM Cellulitis of foot (Primary Dx); Ingrowing nail; Dermatophytosis of nail from Last 3 Months Immunizations Name Administration [...] Surgery Date Site/Laterality Comments COLONOSCOPY 12/2002 PROCEDURE: AL COLONOSCOPY STOMA DX INCLUDING COLLJ SPEC SPX COLONOSCOPY W/ POLYPECTOMY 01/24/13 PROCEDURE: AL COLSC FLX W/RMVL OF TUMOR POLYP LESION [...] care for your loved ones. For example, childbirth and infant care teacher or elderly care for an older adult? [...] Sign Reading Time Taken Comments Blood Pressure 130/60 03/14/2025 12:28 PM EDT Pulse 60 03/14/2025 12:28 PM EDT Temperature 36.6 ??C (97.8 ??F) 03/14/2025 12:28 PM E DT Respiratory Rate 15 03/14/2025 12:28 PM EDT Oxygen Saturation 96% 10/03/2024 4:30 PM EST Inhaled Oxygen Concentration - - Weight 74.1 kg (163 lb 6.4 oz) 03/14/2025 12:28 PM EDT Height 167.6 cm (5' 6 ) 03/14/2025 12:28 PM EDT Body Mass Index 26.37 03/14/2025 12:28 PM EDT Plan of Treatment Upcoming Encounters Date Type Department Care Team (Late st Contact Info) Description 04/21/2025 8:30 AM EDT Office Visit Adult Medicine [address] [place], [place] [phone] Monika Hernandez MD [address] [place] [address] 05/09/2025 8:30 AM EDT Office Visit Orthopedic Surgery - [place] [address] [phone] Markell Freeman, DPM [address] [address] Health Maintenance Due Date Last Done Comments Zoster Vaccines (1 of 2) 1969 COVID-19 Vaccine (2023- season) 2024 09/30/2023, 08/18/2022, 08/18/2022, Additional history exists RSV Immunization Adult Patients (1 - 1-dose 75+ series) 2025 Falls [...] age to complete this topic Meningococcal B Vaccine Aged Out No l onger eligible based on patient's age to complete [...] AM EDT Essential hypertension, benign Mixed hyperlipidemia COLONOSCOPY Routine 10/03/2024 4:09 PM EST Personal history of colon polyps, unspecified DEPRESSION SCREENING Routine 08/19/2023 FALLS RISK ASSESSMENT Routine 08/19/2023 HEPATITIS C SCREENING Routine 12/19/2002 from Last 3 Months or Most Recently Relevant to Health Maintenance Results * Lipid panel with reflex to direct LDL (01/24/2025 7:57 AM EDT) Cholesterol 149 0 - 200 mg/dL LAB CHEMISTRY METHOD 01/24/2025 10:52 AM EDT [facility] Triglycerides 79 0 - 150 mg/dL LAB CHEMISTRY METHOD 01/24/2025 10:52 AM EDT [facility] HDL 50 >=40 mg/dL LAB CHEMISTRY METHOD 01/24/2025 10:52 AM [facility] LDL Calculated 83 0 - 100 mg/dL LAB CHEMISTRY METHOD 01/24/2025 10:52 AM [facility] VLDL Cholesterol Marlon 15.8 mg/dL LAB CHEMISTRY METHOD 01/24/2025 10:52 AM [facility] Non HDL Chol. (LDL+VLDL) 99 <145 mg/dL LAB CHEMISTRY METHOD 01/24/2025 10:52 AM [facility] Chol/HDL Ratio 3.0 0.0 - 4.4 LAB CHEMISTRY METHOD 01/24/2025 10:52 AM [facility] Blood Venous blood specimen / Unknown Venipuncture / Unknown 01/24/2025 7:57 AM EDT 01/24/2025 7:57 AM EDT us Monika Hernandez MD LAB BLOOD ORDERABL ES Final Result [facility] [address] [place] [address], * (ABNORMAL) Comprehensive metabolic panel (01/24/2025 7:57 AM EDT) Sodium 140 133 - 145 mmol/L LAB CHEMISTRY METHOD 01/24/2025 10:52 AM [facility] Potassium 3.7 3.5 - 5.5 mmol/L LAB CHEMISTRY METHOD 01/24/2025 10:52 AM [facility] Chloride 107 96 - 110 mmol/L LAB CHEMISTRY METHOD 01/24/2025 10:52 AM [facility] CO2 29 21 - 32 mmol/L LAB CHEMISTRY METHOD 01/24/2025 10:52 AM [facility] Anion Gap 4 3 - 11 LAB CHEMISTRY METHOD 01/24/2025 10:52 AM [facility] Glucose 103(H) 70 - 100 mg/dL LAB CHEMISTRY METHOD 01/24/2025 10:52 AM [facility] BUN 16 5 - 25 mg/dL LAB CHEMISTRY METHOD 01/24/2025 10:52 AM [facility] Creatinine 0.88 0.70 - 1.30 mg/dL LAB CHEMISTRY METHOD 01/24/2025 10:52 AM [facility] eGFR 90 >=60 mL/min/1. 73m2 LAB CHEMISTRY METHOD 01/24/2025 10:52 AM [facility] Comment:Calculation based on the??Chronic Kidney Disease Epidemiology Collaboration (CKD-EPI) equation refit??without adjustment for race. BUN/Creatinine Ratio 18.2 LAB CHEMISTRY METHOD 01/24/2025 10:52 AM [facility] Calcium 9.4 8.5 - 10.5 mg/dL LAB CHEMISTRY METHOD 01/24/2025 10:52 AM [facility] AST (SGOT) 12 10 - 42 unit/L LAB CHEMISTRY METHOD 01/24/2025 10:52 AM [facility] ALT (SGPT) 16 10 - 60 unit/L LAB CHEMISTRY METHOD 01/24/2025 10:52 AM [facility] Alkaline Phosphatase 116 42 - 121 unit/L LAB CHEMISTRY METHOD 01/24/2025 10:52 AM [facility] Total Protein 6.9 6.0 - 8.0 g/dL LAB CHEMISTRY METHOD 01/24/2025 10:52 AM [facility] Albumin 4.0 3.2 - 5.0 g/dL LAB CHEMISTRY METHOD 01/24/2025 10:52 AM [facility] Total Bilirubin 0.9 0.0 - 1.4 mg/dL LAB CHEMISTRY METHOD 01/24/2025 10:52 AM [facility] Blood Venous blood specimen / Unknown Venipuncture / Unknown 01/24/2025 7:57 AM EDT 01/24/2025 7:57 AM EDT Monika Hernandez MD LAB BLOOD ORDERABL ES Final Result Performing Organization Address [facility]/State/ZIP Co de Phone Number [facility] [address] [place] [address], * COLONOSCOPY Anesthesia - MAC; [facility] ENDOSCOPY (10/03/2024 4:09 PM EST) Anatomical Region [...] or older). Narrative 10/03/2024 4:[address] [facility] Patient Name: Wild Gilbert Procedure Date: [...] verified by the physician, the nurse, the stable manager ? and the order entry technician in the pre-procedure area in the [...] Procedure Code(s): ? --- Professional --- ? 20819, Colonoscopy, flexible; with removal of ? tumor(s), polyp(s), or other lesion(s) by snare ? technique ? 16733, 59, Colonoscopy, flexible; with biopsy, single ? or multiple Diagnosis Code(s): ? --- Professional --- ? D12.5, Benign neoplasm of sigmoid colon ? D12.0, Benign neoplasm of cecum ? D12.2, Benign neoplasm of ascending colon CPT copyright 2020 [employer]. All rights reserved. The codes documented in this report are preliminary and upon label coder review may be revised to meet current compliance requirements. Gwen Barnes MD 10/03/2024 4:13:22 PM This report has been signed electronically.Gwen Barnes MD Number of Addenda: 0 Note Initiated On: 10/03/2024 3:40 PM Scope Withdrawal Time: 0 hours 10 minutes 2 seconds Scope In: 3:46:25 PM Scope Out: 4:01:36 PM ? Endoscopy Department at [facility] - [address] [place] [address], ? [place] [address] Procedure Note Gwen Barnes MD - 10/03/2024 [facility] Patient Name: Wild Gilbert Procedure Date: [...] the physician, the nurse, theanesthetist and the order entry technician in the pre-procedure area in the [...] reduce spontaneously). Procedure Code(s): --- Professional --- 20619, Colonoscopy, flexible; with removal of tumor(s), polyp(s), or other lesion(s) by snare technique 12882, 59, Colonoscopy, flexible; with biopsy,single or multiple Diagnosis Code(s): --- Professional --- D12.5, Benign neoplasm of sigmoid colon D12.0, Benign neoplasm of cecum D12.2, Benign neoplasm of ascending colon CPT copyright 2020 [employer]. All rights reserved. The codes documented in this report are preliminary and upon label coder reviewmay be revised to meet current compliance requirements. Gwen Barnes MD 10/03/2024 4:13:22 PM This report has been signed electronically.Gwen Barnes MD Number of Addenda: 0 Note Initiated On: 10/03/2024 3:40 PM Scope Withdrawal Time: 0 hours 10 minutes 2 seconds Scope In: 3:46:25 PM Scope Out: 4:01:36 PM Endoscopy Department at [address] [phone] IMPRESSION: - Two 2 to 3 mm [...] al Result * Falls Risk Assessment (08/19/2023) [facility] Falls Risk Assessment abstracted Historical Provider HEALTH MAINTENANCE Final Result * Depression Screening (08/19/2023) Pathologist [facility] Depression Screening abstracted Result [facility] Provider HEALTH MAINTENANCE Final Result * Hepatitis C Screening (12/19/2002) Pathologist [facility] Hepatitis C Screening abstracted Result [facility] Provider HEALTH MAINTENANCE Final Result from Last 3 Months or Most Recently Relevant to Health Maintenance Insurance MEDICARE [facility] Care Teams Assistant Offset Press Operator Relationship Specialty Start Date End Date Monika Hernandez MD [address] [place] [id number] PCP - General Internal Medicine 06/02/22
== END ==
LOC: HO.SL 08:14
PROVIDERS: PCP Internal Medicine; Visit Provider Physician Assistant Medical
DX: G47.19 Other hypersomnia (principal); G20.A1 Parkinson's disease without dyskinesia, without mention of fluctuations; K11.7 Disturbances of salivary secretion; R44.1 Visual hallucinations; Z72.821 Inadequate sleep hygiene
CPT/HCPCS: 95806; 99212

== ENCOUNTER 2025-03-28 09:27 | Outpatient (AMB) | payer MEDICARE, OTHER, SELFPAY ==
[2025-03-28 09:59] VITALS: BP 122/76; PULSE 78; O2SAT 96; BMI 26.4
--- NOTE | 2025-03-28 09:59 | A.OFFVIS_ITS ---
Vital Signs 03/28/25 09:59 Height 5 ft 6 in Weight 163 lb 8 oz BMI 26.4 BP 122/76 Blood Pressure Location Rt brachial Position Sitting Pulse 78 Pulse Source Pulse Oximeter Pulse Oximetry (%) 96 Oxygen Delivery Method Room Air Intake Visit Reasons: f/u appt Intake Note: Patient presents follow up tremor/sleep. PET in chart/Picked up HST today. Patient has few questions Accompanied by: Spouse Allergies No Known Allergies Allergy (Verified 03/28/25 10:03) HPI Comments Details: 75 y/o R. handed male comes for evaluation of slowness in movements, tremors and excessive drooling. Mary Ann and daughter Darby are help with history today. He notices his hand tremors are mild at rest bilaterally R>L, he goes to bed at 8pm and wakes up at 5:30. The drooling started 6-9 mths ago and he is embarrassed when he has dinners with his family and friends. He has night time drooling and during daytime when he bends down he drools. He does not realize that he is drooling sometimes, uncontrollable for hours with dry mouth, he doesn't sense the saliva coming down the chin and wakes up with his pillow wet in the am. Dysphagia denies No change in swallowing, but increased drooling. Hypophonia his says his speech was always soft. He feels he is not as coordinated as before and has difficulty with writing, using utensils, and dressing himself, however he is able to complete all ADLs independently, just feels weak at baseline. His gait is slower and mildly off balance, worse in the last 6mos. He had some near falls, due to balance, feels dizzy, as if spinning internally d/t vertigo. He has difficulty turning over in bed. He has trouble recalling names and word finding difficulties, loses focus, can't concentrate on tasks, stm difficulties. He denies nocturia. 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 His mood is still anxious now yet less depressed, and wants to have his sleep evaluated. He has constipation- he manages his diet, has been drinking lots of water and takes a stool softner daily and now has a BM every days since he discontinued the sinemet, it made his tongue have a metallic taste. He is having VH seeing bears, or animals, denies A/V hallucinations. He also reports right occipital shooting pain - electric shock like sensation - used to be daily now it is less frequent. [facility] Medical History Occipital neuralgia of right side Bradykinesia Drooling Rotator cuff tear Insomnia Anxiety HTN (hypertension) Hyperlipidemia Borderline diabetes NICA (obstructive sleep apnea) Erectile dysfunction Periodic limb movement Orthostatic hypotension SOB (shortness of breath) Dysphagia Electrical shock sensation Surgical History H/O shoulder surgery Family History Mother CAD (coronary artery disease) Acquired cataract Father No problems noted. Social History Alcohol intake: current Patient Tobacco Use Status: Never used Tobacco Physical Exam Vital Signs: Last Vital Signs Pulse 78 03/28/25 09:59 BP 122/76 03/28/25 09:59 Pulse Ox 96 03/28/25 09:59 Oxygen Delivery Method Room Air 03/28/25 09:59 BMI result Body Mass Index 26.4 Const Orientation/consciousness: patient oriented x3 Eyes Pupils: Equal, round and reactive pupils present Neuro Other: Stooped, slow, small steps, mild decreased r. arm swing. Decreased blink and facial expression, no drooling noted. Hypophonia Ade UE rigidity, tremor Rue >LUE, facial tremor, no voice or head tremor Neck- restricted range of portion unable to extend. antecollis, good foot taps ade, good upper ext movement General: patient oriented x3 and moves all extremities Cranial nerves: Yes Facial sensation intact/muscles of mastication intact, Yes Equal, round and reactive pupils present, Yes Bilaterally intact EOM present, Yes Nystagmus not present, Yes Normal facial strength present, Yes Midline tongue present, Yes Ability to bilaterally rotate head present and Yes Ability to bilaterally elevate shoulders present Cognition (Neuro): normal cognition Gait exam (Neuro): Antalgic gait present and Other gait observations present (slowed gait, antalgic.) Motor exam (neuro): 5/5 motor strength present throughout and Normal motor muscle tone present throughout Deep tendon reflexes (DTR's): Right triceps reflex intensity grade: 2+, Left triceps reflex intensity grade: 2+, Rt Biceps (C5, C6): 2+, Left biceps reflex intensity grade: 2+, Right brachioradialis reflex intensity grade: 2+, Left brachioradialis reflex intensity grade: 2+, Right patellar reflex intensity grade: 2+ and Left patellar reflex intensity grade: 2+ Coordination: [id number] test normal, rapid alternating movements of the distal upper extremity normal and rapid alternating movements of the distal lower extremity normal Psych Appearance: grossly normal Mental Status: mental status grossly normal Attitude: cooperative Thought content: Hallucination(s) present Results Reviewed Results Reviewed: Datscan +for parkinson, decreased uptake in Nigrostriatal pathway. Assessment & Plan Assessment & Plan (1) Parkinsons disease: Code(s): G20.A1 - Parkinson's disease without dyskinesia, without mention of fluctuations Category: Medical Qualifiers: Dyskinesia presence: without dyskinesia Fluctuating manifestations: without fluctuating manifestations Qualified Code(s): G20.A1 - Parkinson's disease without dyskinesia, without mention of fluctuations (2) Drooling: Code(s): K11.7 - Disturbances of salivary secretion Category: Medical (3) Bradykinesia: Comment: with cogwheel rigidity , Kyphosis, hypophonia, gait imbalance Code(s): R25.8 - Other abnormal involuntary movements Category: Medical (4) Visual hallucinations: Comment: seeing bears and animals, he sleeps well with ropinorole, declines sleep aid today. Code(s): R44.1 - Visual hallucinations Category: Medical (5) History of difficulty sleeping: Code(s): Z72.821 - Inadequate sleep hygiene Category: Medical Plan Parkinsons Disease without dyskinesia Datscan is positive reviewed with patient Mary Ann and daughter Darby. He stopped Sinemet - CD/LD TID due to metallic taste and constipation. HST- Sleep Difficulties unable to as he feels cluastrophobic per sb Pastor today. start melatonin, and will evaluate for ambien or clonidine at next visit. Drooling Botox not an option at this time, positonal therapy to reduce saliva and anticholinergics? tca? zyrtec? 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 Join the [employer] group meet. f/u in 3 months or sooner if needed. Medications: New magnesium oxide take one 400mg tablet daily at bedtime. May hold for loose stools. 400 mg PO DAILY 90 days 90 tabs 3RF history of sleep difficulties MDD 400mg R44.1 - Visual hallucinations, Z72.821 - Inadequate sleep hygiene melatonin take one capsule 3 hours prior to bedtime with dinner. 10 mg PO BEDTIME 90 days PRN 30 caps 3RF sleep MDD 10mg G47.19 - Other hypersomnia, R44.1 - Visual hallucinations Patient Instructions: Sleep Hygiene provided: set a scheduled bedtime and wake time to help regulate the circadian rhythm and balance the release of pituitary hormones. Sleep in a dark room, temperatures below 68 degrees, and no devices n bed. Limit caffeinated products 6 hours prior to bed, and limit fluids 2-4 hours prior to bed. Gentle night yoga, diffusing essential oils, and playing soft music can be relaxing. Coding Level of Care Code Est Pt Level 4 (79196) Diagnoses Parkinson's disease without dyskinesia or fluctuating manifestations G20.A1 Dyskinesia presence: without dyskinesia Fluctuating manifestations: without fluctuating manifestations Drooling K11.7 Bradykinesia R25.8 Visual hallucinations R44.1 History of difficulty sleeping Z72.821 Time Spent (min) 30
== END 2025-03-28 10:50 | disposition home or self-care (01) ==
LOC: HO.HSMS 09:28
PROVIDERS: PCP Internal Medicine; Visit Provider Physician Assistant Medical
DX: G20.A1 Parkinson's disease without dyskinesia, without mention of fluctuations (principal); K11.7 Disturbances of salivary secretion; R25.8 Other abnormal involuntary movements; R44.1 Visual hallucinations; Z72.821 Inadequate sleep hygiene
CPT/HCPCS: 99214

== ENCOUNTER 2025-06-06 10:13 | Outpatient (AMB) | payer MEDICARE, OTHER, SELFPAY ==
--- NOTE | 2025-06-06 10:25 | A.OFFVIS_ITS ---
Vital Signs 06/06/25 10:26 Height 5 ft 6 in Weight 159 lb 6 oz BMI 25.7 BP 114/74 Blood Pressure Location Rt brachial Position Sitting Pulse 62 Pulse Source Pulse Oximeter Pulse Oximetry (%) 98 Oxygen Delivery Method Room Air Intake Visit Reasons: f/u appt Intake Note: Patient presents follow up Parkinson's medication. Stopped CD/LD to side effects. States about the same. Accompanied by: Spouse Allergies No Known Allergies Allergy (Verified 06/06/25 10:30) HPI Comments Details: 75 y/o r. handed male comes for evaluation of slowness in movements, tremors and excessive drooling. Kathy and daughter Hannah help with history today. He denies falls, cd/ld taste like cork and are terrible made him sick, so he discontinued both Ropinorole and CD/LD. Parkinson DATscan + HST - for NICA Tremors he notices upper extremity bilateral tremors are mild r>l. Sleep he goes to bed at 8pm and wakes up at 5:30, with 2-3 bathroom breaks denies, denies nocturia. He has difficulty turning over in bed due to the r. shoulder pain, PT declines today. Dysphagia denies, Swallowing mildly challenging, able to chew and eat steaks, and chicken. Due to stooped posture unable to sip water. Drooling started 1 year ago, he is embarrassed during family dinners with his friends. Worse at night and during daytime when he bends down he drools without recognizing it, and it is uncontrollable for hours he gets dry mouth, he can't sense the saliva coming down his chin and wakes up with a wet pillow in the AM. Oral maxillofacial for botox - referral. Hypophonia his says his speech was always soft, now mumbles words, refuses to wear hearing aides, hearing is poor. Fine motor coordination is worse, he writes well, uses utensils, can dress himself, able to complete all ADLs independently, feels weak at baseline. Gait is normal, mildly off balance, few near falls. He feels dizzy denies vertigo. Room spins with positional changes. Memory is good at baseline, denies word finding difficulty. STM is poor, gets lost in conversations, loses focus, still drives locally. 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 VH when turning the head laterally will see shadows, fear inducing. AH hears voices which are aggressive. His mood is still anxious denies depression. His Diet is good, eats a healthy Portugese diet. BM every other day, takes fiber and laxatives as needed. c/o Headaches r. occipital base of neck, worse with movement, quick, electric shock like sensation. [facility] Medical History Occipital neuralgia of right side Bradykinesia Drooling Rotator cuff tear Insomnia Anxiety HTN (hypertension) Hyperlipidemia Borderline diabetes NICA (obstructive sleep apnea) Erectile dysfunction Periodic limb movement Orthostatic hypotension SOB (shortness of breath) Dysphagia Electrical shock sensation Surgical History H/O shoulder surgery Family History Mother CAD (coronary artery disease) Acquired cataract Father No problems noted. Social History Alcohol intake: current Patient Tobacco Use Status: Never used Tobacco Physical Exam Vital Signs: Last Vital Signs Pulse 62 06/06/25 10:26 BP 114/74 06/06/25 10:26 Pulse Ox 98 06/06/25 10:26 Oxygen Delivery Method Room Air 06/06/25 10:26 BMI result Body Mass Index 25.7 Const Orientation/consciousness: patient oriented x3 Eyes Pupils: Equal, round and reactive pupils present Neuro Other: Stooped, slow, small steps, decreased r. arm swing. Decreased blink and facial expression, no drooling noted. Hypophonia, mumbles. Needs hearing aides, vision updated. Ade UE rigidity, tremor Rue >LUE, facial tremor, no voice or head tremor. Neck- restricted range of motion and unable to extend. antecollis, good foot taps ade, good upper ext movement, finger to touch is abnormal, pauses and gets confused despite clear directions General: patient oriented x3 and moves all extremities Cranial nerves: Yes Facial sensation intact/muscles of mastication intact, Yes Equal, round and reactive pupils present, Yes Bilaterally intact EOM present, Yes Nystagmus not present, Yes Normal facial strength present, Yes Midline tongue present, Yes Ability to bilaterally rotate head present and Yes Ability to bilaterally elevate shoulders present Cognition (Neuro): normal cognition Gait exam (Neuro): Antalgic gait present and Other gait observations present (slowed gait, antalgic.) Motor exam (neuro): 5/5 motor strength present throughout and Normal motor muscle tone present throughout Deep tendon reflexes (DTR's): Right triceps reflex intensity grade: 2+, Left triceps reflex intensity grade: 2+, Rt Biceps (C5, C6): 2+, Left biceps reflex intensity grade: 2+, Right brachioradialis reflex intensity grade: 2+, Left brachioradialis reflex intensity grade: 2+, Right patellar reflex intensity grade: 3+ and Left patellar reflex intensity grade: 3+ Coordination: rapid alternating movements of the distal upper extremity normal and rapid alternating movements of the distal lower extremity normal Psych Appearance: grossly normal Mental Status: mental status grossly normal Attitude: cooperative Thought process: Normal thought process present Thought content: Normal thought content present and Hallucination(s) present auditory and visual Insight: Fair insight present (Psych) Results Reviewed Results Reviewed: HST no evidence of NICA Assessment & Plan Assessment & Plan (1) Parkinsons disease: Comment: +Datscan Code(s): G20.A1 - Parkinson's disease without dyskinesia, without mention of fluctuations Category: Medical Qualifiers: Dyskinesia presence: without dyskinesia Fluctuating manifestations: without fluctuating manifestations Qualified Code(s): G20.A1 - Parkinson's disease without dyskinesia, without mention of fluctuations (2) Drooling: Comment: Maxillo facial dermatology referral Code(s): K11.7 - Disturbances of salivary secretion Category: Medical (3) Bradykinesia: Comment: with cogwheel rigidity , Kyphosis, hypophonia, gait imbalance Code(s): R25.8 - Other abnormal involuntary movements Category: Medical (4) Visual hallucinations: Comment: seeing bears and animals, declines ropinorole, clonidine, and ambien Code(s): R44.1 - Visual hallucinations Category: Medical (5) History of difficulty sleeping: Comment: no evidence of nica on HST Code(s): Z72.821 - Inadequate sleep hygiene Category: Medical (6) Cognitive decline: Comment: declines meds Code(s): R41.89 - Other symptoms and signs involving cognitive functions and awareness Category: Medical (7) Occipital neuralgia of right side: Comment: declines pt/ massage/ Code(s): M54.81 - Occipital neuralgia Category: Medical Plan Parkinsons Disease without dyskinesia Datscan is positive reviewed with patient Mary Ann and daughter Hannah. He stopped Sinemet - CD/LD TID due to metallic/ cork like taste and constipation. Today he is willing to try one pill daily for 30 days. NICA HST no evidence sleep apnea. Declines Clonidine, and Ambien, will take melatonin. Excessive Drooling Botox referral Maxillofacial clinic, F/U with referral. 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 VH continue Melatonin for sleep disturbances, pt. discontinued ropinorole s/e bad taste. Patient Education Join the Parkinsons [facility] at the [facility], exercise daily, biking for at least 15-30 min. f/u in 3 months or sooner if needed. Medications: Changed From melatonin take one capsule 3 hours prior to bedtime with dinner. 10 mg PO BEDTIME 90 days PRN 30 caps 3RF sleep MDD 10mg G47.19 - Other hypersomnia, R44.1 - Visual hallucinations To melatonin take one capsule 3 hours prior to bedtime with dinner. 5 mg (1/2 x 10 mg) PO BEDTIME PRN 30 caps 3RF sleep 90 days MDD 10mg G47.19 - Other hypersomnia, R44.1 - Visual hallucinations Patient Instructions: Sleep Hygiene provided: set a scheduled bedtime and wake time to help regulate the circadian rhythm and balance the release of pituitary hormones. Sleep in a dark room, temperatures below 68 degrees, and no devices n bed. Limit caffeinated products 6 hours prior to bed, and limit fluids 2-4 hours prior to bed. Gentle night yoga, diffusing essential oils, and playing soft music can be relaxing. Coding Level of Care Code Est Pt Level 4 (44242) Complex EM visit Add On G2211 Diagnoses Parkinson's disease without dyskinesia or fluctuating manifestations G20.A1 Dyskinesia presence: without dyskinesia Fluctuating manifestations: without fluctuating manifestations Drooling K11.7 Bradykinesia R25.8 Visual hallucinations R44.1 History of difficulty sleeping Z72.821 Cognitive decline R41.89 Occipital neuralgia of right side M54.81 Time Spent (min) 45 Comment mild decline
[2025-06-06 10:26] VITALS: BP 114/74; PULSE 62; O2SAT 98; BMI 25.7
--- OUTSIDE RECORDS SUMMARY | 2025-06-06 10:48 | XMS_ITS ---
Author Name [facility] Organization Unknown Care Team Organization Name Specialty Phone Email Start Date End Da te [facility] Monika Xie Primary Care 10/14/2023 4 [facility] CHERRY WEISS Primary Care [email or web address] 04/10/2023 4 [facility] Sonia Brenner Primary Care 09/09/2022 02 4
== END 2025-06-06 11:38 | disposition home or self-care (01) ==
LOC: HO.HSMS 10:13
PROVIDERS: PCP Internal Medicine; Visit Provider Physician Assistant Medical
DX: G20.A1 Parkinson's disease without dyskinesia, without mention of fluctuations (principal); K11.7 Disturbances of salivary secretion; R25.8 Other abnormal involuntary movements; R44.1 Visual hallucinations; Z72.821 Inadequate sleep hygiene; R41.89 Other symptoms and signs involving cognitive functions and awareness; M54.81 Occipital neuralgia
CPT/HCPCS: 99214; G2211

== ENCOUNTER → 2025-06-06 10:13 | Outpatient (BNVA) | payer MEDICARE, OTHER, SELFPAY | PROVIDERS: PCP Internal Medicine; Visit Provider Physician Assistant Medical | DX: G20.A1 Parkinson's disease without dyskinesia, without mention of fluctuations (principal); K11.7 Disturbances of salivary secretion; R25.8 Other abnormal involuntary movements; R44.1 Visual hallucinations; R41.89 Other symptoms and signs involving cognitive functions and awareness; M54.81 Occipital neuralgia; Z72.821 Inadequate sleep hygiene | CPT/HCPCS: 99212 ==

== ENCOUNTER 2025-09-05 09:58 | Outpatient (AMB) | payer MEDICARE, OTHER, SELFPAY ==
--- OUTSIDE RECORDS SUMMARY | 2025-08-30 07:30 | XMS_ITS | Encounter Summary ---
Author Organization [facility] Address [address] [place] [address] Care Team Providers Care Process Server Name Role Phone Monika Hernandez MD Primary Care Prov ider Reason for Visit * Reason Comments Pain Follow-up Encounter Details Date Type Department Care Team (Late st Contact Info) Description 08/30/2025 8:30 AM EDT Office Visit Orthopedics - [place] [address] [place] [address] Carlos Fan PA [address] [place] [phone] Chronic right shoulder pain (Primary Dx) Social History Tobacco Use Types Packs/Day Years [...] care for your loved ones. For example, vocational childcare teacher or elderly care for an older [...] Date Recorded What is your living situation? Unrecognized valu e 10/18/2024 Interpersonal Safety Answer Date Record ed Physical Abuse Unrecognized value 10/03/2024 Verbal Abuse Unrecognized value 10/03/2024 Sex and Gender Information Value Date Recorded Sex Assigned at Male 06/23/2025 7:44 AM EDT Legal Sex Male 1:05 PM EST Gender Identity Male 06/23/2025 7:44 AM EDT Sexual Orientation Straight 06/23/2025 7: 44 AM EDT documented as of this encounter Last Filed Vital Signs Vital Sign Reading Time Taken Comments Blood Pressure - - Pulse - - Temperature - - Respiratory Rate 16 08/30/2025 8:22 AM EDT Oxygen Saturation - - Inhaled Oxygen Concentration - - Weight 72.6 kg (160 lb) 08/30/2025 8:22 AM EDT Height 167.6 cm (5' 6 ) 08/30/2025 8:22 AM EDT Body Mass Index 25.82 08/30/2025 8:22 AM EDT documented in this encounter Progress Notes * BERNA Mondragon - 08/30/2025 8:30 AM EDT CHIEF COMPLAINT: Pain and Follow-up of the Right Shoulder had concerns including Pain and Follow-up of the Right Shoulder. IDENTIFIER: Wild [place] is a 75 y.o. old male. HPI: Wild [place] is here for follow up on right shoulder pain. Patient returns today has completed more of a prolonged course of physical therapy. His pain is currently a 2 out of 10. He is doing home exercises and swimming at the gym. Very happy with his current symptoms PHYSICAL EXAM: Vitals: 08/30/25 0822 Resp: 16 Weight: 72.6 kg (160 lb) Height: 1.676 m (66 ) Patient demonstrates full range of motion in flexion with no pain. Abduction to 100 degrees. 5/5 abduction strength IMPRESSION AND PLAN 1. Chronic right shoulder pain 1. Chronic right shoulder pain (Primary) Symptoms currently improved following course of therapy. He will continue his home exercises and rehab exercises and follow-up as needed No orders of the defined types were placed in this encounter. ROS: GENERAL: No malaise, significant weight loss or fever HEENT: No changes in hearing or vision, nose bleeds or other nasal problems NECK: No lumps, goiter, pain or significant neck swelling RESPIRATORY: No cough, wheezing or shortness of breath CARDIOVASCULAR: No chest pain, leg swelling or palpitations GI: No abdominal discomfort, blood in stools or black stools : No dysuria, frequency or incontinence MUSCULOSKELETAL: No joint pain or swelling, back pain, or muscle pain. SKIN: No lesions, rash or itching NEURO: No persistent headache, syncope, seizures, weakness or numbness Remainder of systems noncontributory. PAST MEDICAL HISTORY: Patient Active Problem List Diagnosis Date Noted Anxiety 08/02/2024 Drooling 08/02/2024 Globus sensation 08/02/2024 Esophagitis 04/22/2024 White matter abnormality on MRI of brain 04/22/2024 Right bundle branch block 01/29/2023 Dysphagia 01/20/2022 Electrical shock sensation 01/20/2022 Orthostatic hypotension 05/02/2021 SOB (shortness of breath) 05/02/2021 Rotator cuff tear, right 08/11/2018 Periodic limb movement sleep disorder 03/16/2018 Erectile dysfunction 02/08/2018 Obstructive sleep apnea 01/14/2018 Borderline diabetes 06/29/2017 Dyslipidemia 09/11/2011 Essential hypertension, benign 11/14/2005 Hyperlipidemia 11/14/2005 Insomnia 11/14/2005 Surgical History[1] SOCIAL HISTORY: Social History Tobacco Use Smoking status: Never Smokeless tobacco: Never Substance Use Topics Alcohol use: Yes Alcohol/week: 66.0 standard drinks of alcohol Types: 33 Glasses of wine, 33 Standard drinks or equivalent per week FAMILY HISTORY: Family History[2] MEDICATIONS DISCONTINUED/REORDERED: There are no discontinued medications. ACTIVE MEDICATIONS: Medications Taking[3] ALLERGIES: Allergies[4] The details of the visit were reviewed with the patient. Pertinent history, and objective findings were reviewed, along with the diagnoses: Wild [place] acknowledges understanding of the above plan and agrees to follow recommendations and/or take medications as prescribed. No follow-ups on file. BERNA Mondragon [1] Past Surgical History: Procedure Laterality Date CATARACT EXTRACTION Bilateral COLONOSCOPY 12/2002 PROCEDURE: MS COLONOSCOPY STOMA DX INCLUDING COLLJ SPEC SPX COLONOSCOPY W/ POLYPECTOMY 01/24/13 PROCEDURE: MS COLSC FLX W/RMVL OF TUMOR POLYP LESION SNARE TQ; COMMENT: tics, hemorrhoids and adenom; repeat in 5 yrs HAND SURGERY Right PROCEDURE: HISTORICAL HAND SURGERY; COMMENT: TRIGGER FINGER RELEASE OTHER SURGICAL HISTORY 07/2016 PROCEDURE: HISTORICAL UNSPECIFIED SURGERY; COMMENT: Hema, right hand contracture SHOULDER SURGERY 04/2016, 05/12/2016, 05/2018 PROCEDURE: HISTORICAL SHOULDER SURGERY; COMMENT: right arthroscopy Dr. Varela [2] Family History Problem Relation Name Age of Onset Diabetes Father Coronary artery disease Mother Cataracts Mother Blindness Neg Hx Glaucoma Neg Hx Macular degeneration Neg Hx Strabismus Neg Hx [3] Outpatient Medications Marked as Taking for the 08/30/25 encounter (Office Visit) with BERNA Mondragon Medication Sig Dispense Refill amLODIPine (NORVASC) 10 mg tablet Take 1 tablet (10 mg total) by mouth 1 (one) time each day. 90 each 3 atorvastatin (LIPITOR) 80 mg tablet Take 1 tablet (80 mg total) by mouth 1 (one) time each day. 90 each 3 carbidopa-levodopa (SINEMET) 25-100 mg per tablet Take 1 tablet by mouth 2 (two) times a day. clotrimazole (LOTRIMIN) 1 % cream Apply to skin and toenails daily for 12 weeks ketoconazole (NIZORAL) 2 % cream Apply topically 1 (one) time each day. 30 g 2 lisinopril (PRINIVIL,ZESTRIL) 40 mg tablet TAKE 1 TABLET BY MOUTH EVERY DAY 90 tablet 1 rOPINIRole (REQUIP) 0.25 mg tablet Take 1 tablet (0.25 mg total) by mouth 3 (three) times a day. Current Facility-Administered Medications for the 08/30/25 encounter (Office Visit) with EBRNA Mondragon Medication Dose Route Frequency Provider Last Rate Last Admin vvlgqxsfor-aofqksls-ywvprslnuy (BREZTRI AEROSPHERE) 160-9-4.8 mcg/actuation inhaler HFA aerosol inhaler 2 puff 2 puff inhalation BID Jenna Shipley MD [4] Allergies Allergen Reactions Poison Rose Extract Itching Poison rose plant documented in this encounter Plan of Treatment Upcoming Encounters Date Type Department Care Team (Late st Contact Info) Description 09/11/2025 8:15 AM EST Office Visit Orthopedic Surgery - [address] [phone] Markell Freeman, DPM [address] [place] [phone] 09/11/2025 11:30 AM EST Office Visit Adult Medicine [address] [phone] Lea Mckeon PA [address] [place] [phone] 09/21/2025 9:00 AM EST Office Visit Pulmonology - [place] [address] [place] [phone] Jenna Shipley MD [address] [place] [phone] documented as of this encounter Visit Diagnoses Diagnosis Chronic right shoulder pain- Primary Pain in joint, shoulder region documented in this encounter Additional Health Concerns Assessment Noted Time PHQ-9 Depression Total Score: 0 10/18/20 24 8:11 AM EST documented as of this encounter Care Teams Process Server Relationship Specialty Start Date End Date Monika Hernandez MD [address] [place] [phone] PCP - General Internal Medicine 06/02/22 documented as of this encounter
--- NOTE | 2025-09-05 10:12 | A.OFFVIS_ITS ---
Vital Signs 09/05/25 10:13 Height 5 ft 6 in Weight 163 lb 8 oz BMI 26.4 BP 128/88 Blood Pressure Location Rt brachial Position Sitting Pulse 72 Pulse Source Pulse Oximeter Pulse Oximetry (%) 98 Oxygen Delivery Method Room Air Intake Visit Reasons: 3 mo follow up Intake Note: Patient presents follow up Parkinson's. Patient states symptoms are about the same. No tremors yet Accompanied by: Spouse Allergies No Known Allergies Allergy (Verified 09/05/25 10:28) HPI Comments Details: 75 y/o r. handed male with Parkinsons history presents for evaluation of his in lab sleep study. Kathy helps with history today. We reviewed MOON scan + again today. PSG is pending. He denies falls, he takes CD/LD 1 tablet daily and feels fatigued and slower especially in the evenings. Tremors He has mild bilateral upper ext tremors r>l. Sleep is good, snores loudly, denies nocturia. Difficulty turning over in bed due to the r. shoulder pain, PT was helpful though he declines today. He is swimming and goes to the gym now. he has constant pain- needs bed rails. Dysphagia denies, swallowing mildly challenging, able to chew, eat steaks, and chicken. Drooling is the same, still embarassed at dinners and worse at night and wakes up with wet pillow. requests referral to [facility] for botox. Voice is softer, hoarse in the evenings, his says his speech was always soft, now mumbles words, refuses to wear hearing aides. Fine motor coordination he writes well, uses utensils, can dress himself, able to complete all ADLs independently. Gait is normal, mildly off balance, good stride. Difficulty with getting out of car, denies vertigo and dizziness with positional changes. Memory is good at baseline, denies word finding difficulty. STM is poor, gets lost in conversations, loses focus, still drives locally. Hallucinations have decreased now once a month with screaming, thrashing, flailing due to h/o work in [employer]. VH when turning his head laterally sees shadows, and AH aggressive voices. Mood is still gets anxious, though stable at the moment. Diet is good, eats a healthy Portugese diet. BM every other day, takes metamucil and laxatives as needed. Headaches r. occipital base of neck, worse with movement, quick, sharp, electric shock like sensation. [facility] Medical History Occipital neuralgia of right side Bradykinesia Drooling Rotator cuff tear Insomnia Anxiety HTN (hypertension) Hyperlipidemia Borderline diabetes NICA (obstructive sleep apnea) Erectile dysfunction Periodic limb movement Orthostatic hypotension SOB (shortness of breath) Dysphagia Electrical shock sensation Surgical History H/O shoulder surgery Family History Mother CAD (coronary artery disease) Acquired cataract Father No problems noted. Social History Alcohol intake: current Patient Tobacco Use Status: Never used Tobacco Physical Exam Vital Signs: Last Vital Signs Pulse 72 09/05/25 10:13 BP 128/88 09/05/25 10:13 Pulse Ox 98 09/05/25 10:13 Oxygen Delivery Method Room Air 09/05/25 10:13 BMI result Body Mass Index 26.4 Const General: cooperative, healthy appearing and no acute distress Nutritional Appearance: average body habitus Orientation/consciousness: patient oriented x3 HEENT Face and sinus: Yes face symmetric Teeth and gingiva: other Throat: Yes other (mallampti score is 3) Eyes Pupils: Equal, round and reactive pupils present and Pupil accommodation reflex normal Neck Other: limited rom on extension, with creeking noise on lateral movement Resp Effort & Inspection: normal respiratory effort and able to speak in complete sentences Neuro Other: Stooped, slow, small steps, decreased r. arm swing. Decreased blink and facial expression, no drooling noted. Hypophonia, mumbles. Needs hearing aides, vision updated. Ade UE rigidity, tremor Rue >LUE, facial tremor, no voice or head tremor. Neck- restricted range of motion and unable to extend. antecollis, good foot taps ade, good upper ext movement, finger to touch is abnormal, pauses and gets confused despite clear directions General: patient oriented x3 and moves all extremities Cranial nerves: Yes Facial sensation intact/muscles of mastication intact, Yes Equal, round and reactive pupils present, Yes Bilaterally intact EOM present, Yes Nystagmus not present, Yes Normal facial strength present, Yes Midline tongue present, Yes Ability to bilaterally rotate head present and Yes Ability to bilaterally elevate shoulders present Cognition (Neuro): normal cognition Gait exam (Neuro): Antalgic gait present and Other gait observations present (slowed gait, antalgic.) Motor exam (neuro): 5/5 motor strength present throughout and Normal motor muscle tone present throughout Deep tendon reflexes (DTR's): Right triceps reflex intensity grade: 2+, Left triceps reflex intensity grade: 2+, Rt Biceps (C5, C6): 2+, Left biceps reflex intensity grade: 2+, Right brachioradialis reflex intensity grade: 2+, Left brachioradialis reflex intensity grade: 2+, Right patellar reflex intensity grade: 3+ and Left patellar reflex intensity grade: 3+ Coordination: rapid alternating movements of the distal upper extremity normal and rapid alternating movements of the distal lower extremity normal Psych Appearance: grossly normal Mental Status: mental status grossly normal Attitude: cooperative Thought process: Normal thought process present Thought content: Normal thought content present and Hallucination(s) present auditory and visual Insight: Good insight present (Psych) Judgement: Good judgement present (Psych) Results Reviewed Results Reviewed: [facility] Labs ? Assessment & Plan Assessment & Plan (1) Parkinsons disease: Comment: +[facility]scan Code(s): G20.A1 - Parkinson's disease without dyskinesia, without mention of fluctuations Category: Medical (2) Bradykinesia: Comment: with cogwheel rigidity , Kyphosis, hypophonia, gait imbalance Code(s): R25.8 - Other abnormal involuntary movements Category: Medical (3) Visual hallucinations: Code(s): R44.1 - Visual hallucinations Category: Medical (4) History of difficulty sleeping: Comment: no evidence of nica on HST Code(s): Z72.821 - Inadequate sleep hygiene Category: Medical (5) Cognitive decline: Comment: declines meds Code(s): R41.89 - Other symptoms and signs involving cognitive functions and awareness Category: Medical (6) Occipital neuralgia of right side: Comment: declines pt/ massage/ Code(s): M54.81 - Occipital neuralgia Category: Medical (7) Difficulty turning in bed: Code(s): R68.89 - Other general symptoms and signs Category: Medical (8) Sialorrhea: Code(s): K11.7 - Disturbances of salivary secretion Category: Medical (9) Drooling: Code(s): K11.7 - Disturbances of salivary secretion Category: Medical (10) Excessive daytime sleepiness: Code(s): G47.19 - Other hypersomnia Category: Medical (11) Sleep disturbances: Code(s): G47.9 - Sleep disorder, unspecified Category: Medical Plan Parkinsons Disease without dyskinesia Datscan +. Continue CD/LD 1 tablet daily, decreased from TID due to metallic/ cork like taste and constipation. NICA HST no evidence sleep apnea. Declines Clonidine, and Ambien, will take melatonin, PSG is pending. Sialorhhea /Excessive, socially embarassing, bothersome Drooling Botox IM 100 units into parotid gland, referral Dr. Loving Cognitive Decline (MMSE at next appt)- Memantine ? Sleep disturbances A/V Hallucinations have decreased, he need bed rails due to difficuty turning over in bed. Needs hearing aides and needs wear them daily to improve cognitive function and decrease AH. Patient Education continue swimming every other day and stationary bike for at least 30 min. f/u in 2 months or sooner, Orders: Orders Comprehensive Met. Panel Today G47.19 - Other hypersomnia Ferritin Today G47.19 - Other hypersomnia IRON PROFILE Today G47.19 - Other hypersomnia, G47.9 - Sleep disorder, unspecified, R53.83 - Other fatigue Homocysteine Today G47.19 - Other hypersomnia, G47.9 - Sleep disorder, unspecified, R53.83 - Other fatigue Vitamin D 25-OH Total Today G47.19 - Other hypersomnia Vitamin B12 and Folate Today G47.19 - Other hypersomnia Complete Blood Count no Diff Today G47.19 - Other hypersomnia Methylmalonic Acid Today G47.19 - Other hypersomnia, G47.9 - Sleep disorder, unspecified, R53.83 - Other fatigue TSH reflex Free T4 Today G47.19 - Other hypersomnia Medications: New [Bed Rails] As directed 1 ea 0RF Parkinsons Disorder R68.89 - Other general symptoms and signs onabotulinumtoxinA (Botox) please provide IM injections 100 units solution for injections 100 units IM ONCE 1 ea 6RF sialorrhea 6 months MDD 100 units injections K11.7 - Disturbances of salivary secretion carbidopa-levodopa 25-100 mg 1 tab PO BID 180 tabs 0RF parkinsons 3 months MDD 2 tablets G20.A1 - Parkinson's disease without dyskinesia, without mention of fluctuations magnesium oxide 400 mg PO DAILY 90 tabs 0RF 400mg 3 months MDD 400mg G47.9 - Sleep disorder, unspecified Patient Instructions: Please complete the following fasting labs to rule out deficiencies. CBC/CMP/ B12/ Vit D/ TSH/ Homocysteine and MMA/ Ferritin. Sleep Hygiene provided: set a scheduled bedtime and wake time to help regulate the circadian rhythm and balance the release of pituitary hormones. Sleep in a dark room, temperatures below 68 degrees, and no devices n bed. Limit caffeinated products 6 hours prior to bed, and limit fluids 2-4 hours prior to bed. Gentle night yoga, diffusing essential oils, and playing soft music can be relaxing. Community Navigation Workload: Hearing Aides daily should be worn during waking hours, f/u. Excersice daily join the [facility] [place] parkinsons group Referral for Botox due to drooling IM Botox 100units into the parotid gland, excessive bothersome, embarassing drooling. Coding Level of Care Code Est Pt Level 4 (80032) Complex EM visit Add On G2211 Diagnoses Parkinsons disease G20.A1 Bradykinesia R25.8 Visual hallucinations R44.1 History of difficulty sleeping Z72.821 Cognitive decline R41.89 Occipital neuralgia of right side M54.81 Difficulty turning in bed R68.89 Sialorrhea K11.7 Drooling K11.7 Excessive daytime sleepiness G47.19 Sleep disturbances G47.9
[2025-09-05 10:13] VITALS: BP 128/88; PULSE 72; O2SAT 98; BMI 26.4
--- OUTSIDE RECORDS SUMMARY | 2025-09-05 11:27 | XMS_ITS | Clinical Summary ---
Author Organization [facility] Address [address] [place] [address] Phone Care Team Providers Care Wire Border Assembler Name Role Phone Monika Hernandez MD Primary Care Prov ider Allergies Active Allergy Reactions Criticality Noted Date Comments Poison Chandni Extract Itching Medium 11/16/2023 Poison chandni plant Medications clotrimazole (LOTRIMIN) 1 % cream Apply to skin and toenails daily for 12 weeks 4 Active amLODIPine (NORVASC) 10 mg tablet Take 1 tablet (10 mg total) by mouth 1 (one) time each day. 90 each 3 4 10/18/20 25 Active atorvastatin (LIPITOR) 80 mg tablet Take 1 tablet (80 mg total) by mouth 1 (one) time each day. 90 each 3 4 10/18/20 25 Active carbidopa-levod opa (SINEMET) 25-100 mg per tablet Take 1 tablet by mouth 2 (two) times a day. 5 Active lisinopril (PRINIVIL,ZESTR IL) 40 mg tablet TAKE 1 TABLET BY MOUTH EVERY DAY 90 tablet 1 5 Active rOPINIRole (REQUIP) 0.25 mg tablet Take 1 tablet (0.25 mg total) by mouth 3 (three) times a day. 5 Active ketoconazole (NIZORAL) 2 % cream Apply topically 1 (one) time each day. 30 g 2 5 Active Hospital, Clinic, or Other Facility Administered Medication Ordered Dose Route Frequency Start Date End Date Status cfnbmxphoh-dfdaubjd-qig moterol (BREZTRI AEROSPHERE) 160-9-4.8 mcg/actuation inhaler HFA aerosol inhaler 2 puffIndications:Droolin g 2 puff inhl 2 times daily 07/13/2025 10/11/2025 Active Active Problems Problem Noted Date Diagnosed Date Anxiety 08/02/2024 Drooling 08/02/2024 Assessment & Plan (04/21/2025 9:27 AM EDT): Patient complaining of chronic drooling. He has been seen multiple times for this complaint. Already evaluated by ENT, speech and swallow, and neurology. Is currently following for recent diagnosed Parkinson's disease. Pending some tests and images, he will meet with the specialist next month. I explained to him that drooling can be a symptom associated to Parkinson's disease, however he would like to be evaluated by maxillofacial surgery to see if if he would be a candidate for Botox injections. Referral was placed today. Orders: Ambulatory referral to Oral Maxillofacial Surgery; Future Assessment & Plan (10/18/2024 8:40 AM EST): [...] 02/08/2018 Obstructive sleep apnea 01/14/2018 Overview (08/02/2024): [facility] Home Polysomnogram: Date 01/12/2018; AHI [...] he can manage this. Assessment & Plan (04/21/2025 9:27 AM EDT): HTN is well controlled 126/57. Compliant with his medications, currently on lisinopril 40, amlodipine 10. There is no chest pain, headaches, dizziness, shortness of breath. Will continue same medication. He is encouraged to follow a low-salt diet and exercise regularly. Assessment & Plan (03/14/2025 12:59 PM EDT): [...] Encounters Date Type Department Care Team Description 08/30/2025 8:30 AM EDT Office Visit Orthopedics - [address] [phone] Carlos Fan, BERNA Chronic right shoulder pain (Primary Dx) 08/02/2025 10:30 AM EDT Treatment Outpatient Rehabilitation - [address] [phone] Babak York, PT Chronic right shoulder pain (Primary Dx); Primary osteoarthritis of right shoulder 07/31/2025 10:30 AM EDT Treatment Outpatient Rehabilitation [address] [phone] Babak York, PT Chronic right shoulder pain (Primary Dx); Primary osteoarthritis of right shoulder 07/20/2025 9:30 AM EDT Treatment Outpatient Rehabilitation - [address] [phone] Estefany Pineda H, SENIOR TREASURY ANALYST Chronic right shoulder pain (Primary Dx); Primary osteoarthritis of right shoulder 07/18/2025 10:00 AM EDT Treatment Outpatient Rehabilitation [address] [phone] Estefany Pineda H, SENIOR TREASURY ANALYST Chronic right shoulder pain (Primary Dx); Primary osteoarthritis of right shoulder 07/14/2025 9:30 AM EDT Treatment Outpatient Rehabilitation [address] [phone] Estefany Pineda H, SENIOR TREASURY ANALYST Chronic right shoulder pain (Primary Dx); Primary osteoarthritis of right shoulder 07/13/2025 10:30 AM EDT Consult Pulmonology [facility] [address] [phone] Jenna Shipley MD Drooling (Primary Dx); Parkinson's disease, unspecified whether dyskinesia present, unspecified whether manifestations fluctuate (CMS/HCC V24, CMS/HCC V28); Snoring 07/13/2025 Telephone Pulmonology - [place] [address] [phone] Melissa Chung MA 07/12/2025 8:30 AM EDT Office Visit Orthopedic Surgery [facility] [address] [phone] Markell Freeman, DPM Dermatophytosis of nail (Primary Dx); Ingrowing nail 07/10/2025 8:00 AM EDT Treatment Outpatient Rehabilitation [address] [phone] Babak York, PT Chronic right shoulder pain (Primary Dx); Primary osteoarthritis of right shoulder 07/07/2025 8:30 AM EDT Treatment Outpatient [address] [phone] Babak York, PT Chronic right shoulder pain (Primary Dx); Primary osteoarthritis of right shoulder 07/04/2025 9:00 AM EDT Treatment Outpatient Rehabilitation [address] [phone] Babak York, PT Chronic right shoulder pain (Primary Dx); Primary osteoarthritis of right shoulder 06/27/2025 9:00 AM EDT Treatment Outpatient Rehabilitation [address] [phone] Estefany Pineda, SENIOR TREASURY ANALYST Chronic right shoulder pain (Primary Dx); Primary osteoarthritis of right shoulder 06/26/2025 8:45 AM EDT Office Visit Orthopedics - [address] [phone] Carlos Fan PA Chronic right shoulder pain (Primary Dx); Primary osteoarthritis of right shoulder 06/23/2025 8:00 AM EDT Treatment Outpatient [address] [phone] Estefany Pineda, SENIOR TREASURY ANALYST Chronic right shoulder pain (Primary Dx); Primary osteoarthritis of right shoulder 06/19/2025 9:30 AM EDT Treatment Outpatient [address] [phone] Estefany Pineda, SENIOR TREASURY ANALYST Chronic right shoulder pain (Primary Dx); Primary osteoarthritis of right shoulder 06/16/2025 8:00 AM EDT Treatment Outpatient [address] [phone] Estefany Pineda, SENIOR TREASURY ANALYST Chronic right shoulder pain (Primary Dx); Primary osteoarthritis of right shoulder 06/08/2025 Telephone Adult Medicine [facility] - [address] [phone] Monika Hernandez MD from Last 3 Months Immunizations Immunization Administration Dates Next Due Influenza Quadravalent, MDCK [...] Surgery Date Site/Laterality Comments COLONOSCOPY 12/2002 PROCEDURE: MS COLONOSCOPY STOMA DX [...] care for your loved ones. For example, manager child or elderly care for an older [...] Orientation Straight 06/23/2025 7: 44 AM EDT Obstetrics History Last Filed Vital Signs Vital Sign Reading Time Taken Comments Blood Pressure 152/63 07/13/2025 10:18 AM EDT Pulse 67 07/13/2025 10:18 AM EDT Temperature 36.1 C (97 F) 07/13/2025 10:18 AM EDT Respiratory Rate 16 08/30/2025 8:22 AM EDT Oxygen Saturation 97% 07/13/2025 10:18 AM EDT Inhaled Oxygen Concentration - - Weight 72.6 kg (160 lb) 08/30/2025 8:22 AM EDT Height 167.6 cm (5' 6 ) 08/30/2025 8:22 AM EDT Body Mass Index 25.82 08/30/2025 8:22 AM EDT Plan of Treatment Upcoming Encounters Date Type Department Care Team (Late st Contact Info) Description 09/11/2025 8:15 AM EST Office Visit Orthopedic Surgery - [address] [phone] Markell Freeman, DPM [address] [place] [phone] 09/11/2025 11:30 AM EST Office Visit Adult Medicine [address], [place] [phone] Lea Mckeon PA [address] [place], [place] 09/21/2025 9:00 AM EST Office Visit Pulmonology - [place] [address] [place] [phone] Jenna Shipley MD [address] [place] [phone] Health Maintenance Due Date Last Done Comments Zoster Vaccines (1 of 2) 1969 Depression Screening 11/02/2024 10/18/2024, 08/19/20 RSV Immunization Adult Patients (1 - 1-dose 75+ series) 2025 COVID-19 Vaccine ( season) 2025 09/30/2023, 08/18/2022, 08/18/2022, Additional history exists Influenza Vaccine (#1) 2025 , 08/19/2023, 08/14/2022, Additional history exists Falls Risk Assessment 10/03/2025 10/03/2024, 023 Medicare Annual Wellness Visit 10/18/2025 10/18/2024 Social Influencers of Health Screening 10/18/2025 10/18/2024 Hypertension/CHF/CAD Annual BMP Blood Test 01/24/2026 01/24/2025, 04/21/2024, 04/21/2024 DTaP,Tdap,and Td Vaccines (3 - Td or Tdap) 06/21/2029 06/21/2019, 02/22/2008 Colorectal Cancer Screening: Colonoscopy 10/03/2029 10/03/2024, 08/30/2019 Cholesterol Screening (Lipid Panel) 01/24/2030 01/24/2025, 04/21/2024, 04/21/2024 Hepatitis C Screening Completed 12/19/2002 Pneumococcal Vaccine: 50+ Years Completed 06/21/2019, 11/15/2015, 07/26/2013 HIB Vaccines Aged Out No longer eligi [...] LAB CHEMISTRY METHOD 01/24/2025 10:52 AM EDT [facility] Triglycerides 79 0 - 150 mg/dL LAB CHEMISTRY METHOD 01/24/2025 10:52 AM EDT [facility] HDL 50 >=40 mg/dL LAB CHEMISTRY METHOD 01/24/2025 10:52 AM EDT [facility] LDL Calculated 83 0 - 100 mg/dL LAB CHEMISTRY METHOD 01/24/2025 10:52 AM EDT [facility] VLDL Cholesterol Marlon 15.8 mg/dL LAB CHEMISTRY METHOD 01/24/2025 10:52 AM [facility] Non HDL Chol. (LDL+VLDL) 99 <145 mg/dL LAB CHEMISTRY METHOD 01/24/2025 10:52 AM T [facility] Chol/HDL Ratio 3.0 0.0 - 4.4 LAB CHEMISTRY METHOD 01/24/2025 10:52 AM [facility] Blood Venous blood specimen / Unknown Venipuncture / Unknown 01/24/2025 7:57 AM EDT 01/24/2025 7:57 AM EDT Monika Hernandez MD LAB BLOOD ORDERABL ES Final Result [facility] [address] [place] [address], * (ABNORMAL) Comprehensive metabolic panel (01/24/2025 7:57 AM EDT) Sodium 140 133 - 145 mmol/L LAB CHEMISTRY METHOD 01/24/2025 10:52 AM [facility] Potassium 3.7 3.5 - 5.5 mmol/L LAB CHEMISTRY METHOD 01/24/2025 10:52 AM [facility] Chloride 107 96 - 110 mmol/L LAB CHEMISTRY METHOD 01/24/2025 10:52 AM [facility] CO2 29 21 - 32 mmol/L LAB CHEMISTRY METHOD 01/24/2025 10:52 AM [facility] Anion Gap 4 3 - 11 LAB CHEMISTRY METHOD 01/24/2025 10:52 AM [facility] Glucose 103(H) 70 - 100 mg/dL LAB CHEMISTRY METHOD 01/24/2025 10:52 AM [facility] BUN 16 5 - 25 mg/dL LAB CHEMISTRY METHOD 01/24/2025 10:52 AM [facility] Creatinine 0.88 0.70 - 1.30 mg/dL LAB CHEMISTRY METHOD 01/24/2025 10:52 AM [facility] eGFR 90 >=60 mL/min/1. 73m2 LAB CHEMISTRY METHOD 01/24/2025 10:52 AM [facility] Comment:Calculation based on the Chronic Kidney Disease Epidemiology Collaboration (CKD-EPI) equation refit without adjustment for race. BUN/Creatinine Ratio 18.2 LAB CHEMISTRY METHOD 01/24/2025 10:52 AM [facility] Calcium 9.4 8.5 - 10.5 mg/dL LAB CHEMISTRY METHOD 01/24/2025 10:52 AM [facility] AST (SGOT) 12 10 - 42 unit/L LAB CHEMISTRY METHOD 01/24/2025 10:52 AM [facility] ALT (SGPT) 16 10 - 60 unit/L LAB CHEMISTRY METHOD 01/24/2025 10:52 AM [facility] Alkaline Phosphatase 116 42 - 121 unit/L LAB CHEMISTRY METHOD 01/24/2025 10:52 AM [facility] Total Protein 6.9 6.0 - 8.0 g/dL LAB CHEMISTRY METHOD 01/24/2025 10:52 AM [facility] Albumin 4.0 3.2 - 5.0 g/dL LAB CHEMISTRY METHOD 01/24/2025 10:52 AM [facility] Total Bilirubin 0.9 0.0 - 1.4 mg/dL LAB CHEMISTRY METHOD 01/24/2025 10:52 AM [facility] Blood Venous blood specimen / Unknown Venipuncture / Unknown 01/24/2025 7:57 AM EDT 01/24/2025 7:57 AM EDT Monika Hernandez MD LAB BLOOD ORDERABL ES Final Result [facility] ([facility] [address] [place] [address], * COLONOSCOPY Anesthesia - MAC; [facility] ENDOSCOPY (10/03/2024 4:09 PM EST) Anatomical Region Laterality Modality Endoscopy 10/03/2024 3:40 PM EST Impressions 10/03/2024 4:13 PM EST - Two 2 to 3 mm polyps in the sigmoid colon and in the cecum, removed with a cold snare. Resected and retrieved. - One diminutive polyp in the ascending colon, removed with a jumbo cold forceps. Resected and retrieved. - Diverticulosis in the sigmoid colon. - Internal hemorrhoids. Recommendation: - Await pathology results. - No repeat colonoscopy due to current age (66 years or older). Narrative 10/03/2024 4:13 PM EST [facility] GI Patient Name: Fredy Gilbert Procedure Date: 10/03/2024 3:40 PM Date of : 1950 Age: 74 Gender: Male Note Status: Finalized Attending MD: Gwen Barnes MD, Procedure Date No Time: 10/03/2024 Procedure: Colonoscopy Indications: High risk colon cancer surveillance: Personal history of colonic polyps, Last colonoscopy: August 2019 Providers: Gwen Barnes MD Referring MD: Gwen Barnes MD Medicines: Monitored Anesthesia Care Complications: No immediate complications. Estimated blood loss: Minimal. Estimated Blood Loss: Estimated blood loss was minimal. Procedure: Pre-Anesthesia Assessment: - Prior to the procedure, a History and Physical was performed, and patient medications and allergies were reviewed. The patient is competent. The risks and benefits of the procedure and the sedation options and risks were discussed with the patient. All questions were answered and informed consent was obtained. Patient identification and proposed procedure were verified by the physician, the nurse, the duct layer supervisor and the trailer technician in the pre-procedure area in the endoscopy suite. Mental Status Examination: alert and oriented. Airway Examination: normal oropharyngeal airway and neck mobility. Respiratory Examination: clear to auscultation. CV Examination: normal. Prophylactic Antibiotics: The patient does not require prophylactic antibiotics. Prior Anticoagulants: The patient has taken no anticoagulant or antiplatelet agents. ASA Grade Assessment: III - A patient with severe systemic disease. After reviewing the risks and benefits, the patient was deemed in satisfactory condition to undergo the procedure. The anesthesia plan was to use monitored anesthesia care (MAC). Immediately prior to administration of medications, the patient was re-assessed for adequacy to receive sedatives. The heart rate, respiratory rate, oxygen saturations, blood pressure, adequacy of pulmonary ventilation, and response to care were monitored throughout the procedure. The physical status of the patient was re-assessed after the procedure. After I obtained informed consent, the scope was passed under direct vision. Throughout the procedure, the patient's blood pressure, pulse, and oxygen [...] were found in the sigmoid colon and cecum. The polyps were 2 to 3 mm in size. These polyps were removed with a cold snare. Resection and retrieval were complete. Estimated blood loss was minimal. A diminutive polyp was found in the ascending colon. The polyp was sessile. The polyp was removed with a jumbo cold forceps. Resection and retrieval were complete. Estimated blood loss was minimal. Multiple small-mouthed diverticula were found in the sigmoid colon. Internal hemorrhoids were found during retroflexion. The hemorrhoids were Grade II (internal hemorrhoids that prolapse but reduce spontaneously). Procedure Code(s): --- Professional --- 82348, Colonoscopy, flexible; with removal of tumor(s), polyp(s), or other lesion(s) by snare technique [id number], 59, Colonoscopy, flexible; with biopsy, single or multiple Diagnosis Code(s): --- Professional --- D12.5, Benign neoplasm of sigmoid colon D12.0, Benign neoplasm of cecum D12.2, Benign neoplasm of ascending colon CPT copyright 2020 [employer]. All rights reserved. The codes documented in this report are preliminary and upon industrial electrician review may be revised to meet current compliance requirements. Gwen Barnes MD 10/03/2024 4:13:22 PM This report has been signed electronically.Gwen Barnes MD Number of Addenda: 0 Note Initiated On: 10/03/2024 3:40 PM Scope Withdrawal Time: 0 hours 10 minutes 2 seconds Scope In: 3:46:25 PM Scope Out: 4:01:36 PM Endoscopy Department at [facility] - [address] [place] [phone] Procedure Note Gwen Barnes MD - 10/03/2024 [facility] Patient Name: Fredy Gilbert Procedure Date: 10/03/2024 3:40 PM Date [...] the physician, the nurse, theanesthetist and the trailer technician in the pre-procedure area in the [...] reduce spontaneously). Procedure Code(s): --- Professional --- 27575, Colonoscopy, flexible; with removal of tumor(s), polyp(s), or other lesion(s) by snare technique [id number], 59, Colonoscopy, flexible; with biopsy,single or multiple Diagnosis Code(s): --- Professional --- D12.5, Benign neoplasm of sigmoid colon D12.0, Benign neoplasm of cecum D12.2, Benign neoplasm of ascending colon CPT copyright 2020 [employer]. All rights reserved. The codes documented in this report are preliminary and upon industrial electrician reviewmay be revised to meet current compliance requirements. Gwen Barnes MD 10/03/2024 4:13:22 PM This report has been signed electronically.Gwen Barnes MD Number of Addenda: 0 Note Initiated On: 10/03/2024 3:40 PM Scope Withdrawal Time: 0 hours 10 minutes 2 seconds Scope In: 3:46:25 PM Scope Out: 4:01:36 PM Endoscopy Department at [address] [phone] IMPRESSION: - Two 2 to 3 mm [...] due to current age (66years or older). Result [facility] Gwen Barnes MD GI~PROCEDURE ORDERABLES Fin al Result * Falls Risk Assessment (08/19/2023) [facility] Falls Risk Assessment abstracted Result [facility] Provider HEALTH MAINTENANCE Final Result * Depression Screening (08/19/2023) [facility] Depression Screening abstracted [facility] Provider HEALTH MAINTENANCE Final Result * Hepatitis C Screening (12/19/2002) [facility] Hepatitis C Screening abstracted Result [facility] Provider HEALTH MAINTENANCE Final Result from Last 3 Months or Most Recently Relevant to Health Maintenance Insurance MEDICARE [facility] Care Teams Wire Border Assembler Relationship Specialty Start Date End Date Monika Hernandez MD [address] [place] [phone] PCP - General Internal Medicine 06/02/22
== END 2025-09-05 11:28 | disposition home or self-care (01) ==
LOC: HO.HSMS 09:58
PROVIDERS: PCP Internal Medicine; Visit Provider Physician Assistant Medical
DX: G20.A1 Parkinson's disease without dyskinesia, without mention of fluctuations (principal); R25.8 Other abnormal involuntary movements; R44.1 Visual hallucinations; Z72.821 Inadequate sleep hygiene; R41.89 Other symptoms and signs involving cognitive functions and awareness; M54.81 Occipital neuralgia; R68.89 Other general symptoms and signs; K11.7 Disturbances of salivary secretion; G47.19 Other hypersomnia; G47.9 Sleep disorder, unspecified
CPT/HCPCS: 99214; G2211

== ENCOUNTER → 2025-09-05 09:58 | Outpatient (BNVA) | payer MEDICARE, OTHER, SELFPAY | PROVIDERS: PCP Internal Medicine; Visit Provider Physician Assistant Medical | DX: G20.A1 Parkinson's disease without dyskinesia, without mention of fluctuations (principal); R44.1 Visual hallucinations; R41.89 Other symptoms and signs involving cognitive functions and awareness; R53.83 Other fatigue; M54.81 Occipital neuralgia; R68.89 Other general symptoms and signs; K11.7 Disturbances of salivary secretion; G47.19 Other hypersomnia; G47.9 Sleep disorder, unspecified; Z72.821 Inadequate sleep hygiene | CPT/HCPCS: 99212 ==

== ENCOUNTER 2025-09-19 15:18 | Outpatient (AMB) | payer MEDICARE, OTHER, SELFPAY ==
--- NOTE | 2025-09-19 15:21 | MHC.OFFVIS ---
Vital Signs 09/19/25 15:22 Height 5 ft 6 in Weight 165 lb BMI 26.6 BP 128/72 Blood Pressure Location Rt brachial Position Sitting Pulse 68 Pulse Source Pulse Oximeter Pulse Oximetry (%) 97 Oxygen Delivery Method Room Air Intake Visit Reasons: New Botox B&B Intake Note: Botox 100 B+B Completion Engineer Required: No Accompanied by: Daughter Allergies No Known Allergies Allergy (Verified 09/19/25 15:22) Medication List - Last Reconciled 09/19/25 by Anna Loving MD amlodipine 10 mg PO DAILY atorvastatin 80 mg PO DAILY [Bed Rails As directed] carbidopa-levodopa 25-100 mg 1 tab PO BID 3 months MDD 2 tablets lisinopril 40 mg PO DAILY magnesium oxide 400 mg PO DAILY 3 months MDD 400mg onabotulinumtoxinA (Botox) 100 units IM ONCE 6 months MDD 100 units injections HPI Comments Details: 75y/o male comes for treatment of sialorrhea with botox Botulinum toxin type A Lot no [id number] Exp 09/2027 was diluted with 1 cc of normal saline at a concentration of 10 units in 0.1 cc. Side effects were discussed and an informed consent was obtained. Bilateral parotid glands 30 units each Bilateral Submandibular glands 20 units ecah Total uses 100 units PFSH Medical History Occipital neuralgia of right side Bradykinesia Drooling Rotator cuff tear Insomnia Anxiety HTN (hypertension) Hyperlipidemia Borderline diabetes NICA (obstructive sleep apnea) Erectile dysfunction Periodic limb movement Orthostatic hypotension SOB (shortness of breath) Dysphagia Electrical shock sensation Surgical History H/O shoulder surgery Family History Mother CAD (coronary artery disease) Acquired cataract Father No problems noted. Social History Alcohol intake: current Patient Tobacco Use Status: Never used Tobacco Physical Exam Vital Signs: Last Vital Signs Pulse 68 09/19/25 15:22 BP 128/72 09/19/25 15:22 Pulse Ox 97 09/19/25 15:22 Oxygen Delivery Method Room Air 09/19/25 15:22 BMI result Body Mass Index 26.6 Const General: cooperative, healthy appearing and no acute distress Nutritional Appearance: average body habitus HEENT Face and sinus: Yes face symmetric Teeth and gingiva: other Throat: Yes other (mallampti score is 3) Eyes Pupils: Pupil accommodation reflex normal Neck Other: limited rom on extension, with creeking noise on lateral movement Resp Effort & Inspection: normal respiratory effort and able to speak in complete sentences Psych Appearance: grossly normal Mental Status: mental status grossly normal Attitude: cooperative Thought process: Normal thought process present Thought content: Normal thought content present and Hallucination(s) present auditory and visual Insight: Good insight present (Psych) Judgement: Good judgement present (Psych) Office Procedures Botulinum toxin Injection 16056 - Salivary Glands Procedure code (CPT) selection complete Office Meds onabotulinumtoxinA 100 unit solution for injection Performing Provider: Anna Loving MD Performing Location: [facility] Administered by: Anna Loving MD on 09/19/25 15:54 Dose Route Admin Location Dispensed Lot Number Expiration Date [facility] Stitchdown Toe Former 100 unit subcut 100 units [id number] [employer] Total Dispensed Waste 100 units 0 % Comments: see HPI Assessment & Plan Assessment & Plan (1) Sialorrhea: Code(s): K11.7 - Disturbances of salivary secretion Category: Medical Plan Patient tolerated the procedure well He will clal with any side effects Orders: Orders AMB Botulinum toxin Injection Today K11.7 - Disturbances of salivary secretion Coding Level of Care Code Est Pt Level 1 (49683) Diagnoses Sialorrhea K11.7 CPT Codes Botox Injection - Botox1: 84507 - Salivary Glands ([id number])
[2025-09-19 15:22] VITALS: BP 128/72; PULSE 68; O2SAT 97; BMI 26.6
== END 2025-09-19 16:03 | disposition home or self-care (01) ==
LOC: HO.HSMS 15:19
PROVIDERS: PCP Internal Medicine; Visit Provider Psychiatry & Neurology Neurology
DX: K11.7 Disturbances of salivary secretion (principal)
CPT/HCPCS: 64611

== ENCOUNTER → 2025-09-19 15:18 | Outpatient (BNVA) | payer MEDICARE, OTHER, SELFPAY | PROVIDERS: PCP Internal Medicine; Visit Provider Psychiatry & Neurology Neurology | DX: K11.7 Disturbances of salivary secretion (principal) | CPT/HCPCS: 64611; 99211; J0585 ==